=== PATIENT | female | born 1930 | race Asian ===

== ENCOUNTER 2020-05-08 10:38 | Inpatient (IN) | payer OTHER ==
[~2020-05-08] VITALS: Ht 154.9 cm; Wt 73.0 kg
[2020-05-08] VITALS (7 sets, daily range): BP systolic 70–111; BP diastolic 34–90
--- NOTE | 2020-05-08 10:44 | Emergency Room Report ---
History of Present Illness General Chief Complaint: Abnormal labs, hypotension Source: Medical Record, EMS Present Illness HPI Disclaimer: Please note that this report is being documented using DRAGON technology. This can lead to erroneous entry secondary to incorrect interpretation by the dictating instrument. HPI: 89-year-old female with a history of GI bleed, intracranial bleed, trach and vent dependent presents for evaluation of hypotension and abnormal labs. The patient was being transported by private ambulance to hospital for anemia with reported hemoglobin of 6.2, and for acute kidney injury with elevated BUN/ creatinine on outpatient labs. En route she became hypotensive with pressures in the 80s. Ambulance rerouted to our facility as we were the closest. She arrives still mildly hypotensive no acute distress. 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 No respiratory distress. Afebrile. Tracheostomy was put in 5 days ago. She was COVID negative at that time. PMH: Anemia, intracranial hemorrhage, trach and vent dependent, GI bleed, hypertension, GERD PSH: Trach., G-tube Allergies: Reviewed Social Hx: Cannot obtain Allergies: Coded Allergies: No Known Allergies (Unverified , 05/08/20) Review of Systems All Other Systems: limited - Cannot obtain from patient Physical Exam General: Obtunded, no spontaneous movement. No obvious distress HEENT: NC/AT. Neck: Tracheostomy appears appropriately placed, no surrounding bleeding, erythema, purulent drainage. Cardiovascular: RRR. S1 and S2 normal. No murmur appreciated Resp: Normal work of breathing. No cough, wheezing or crackles appreciated Abdomen: Abdomen is soft, nondistended. Gastrostomy tube appears in appropriate position without surrounding signs of infection or trauma. Skin: Intact. No abrasions, laceration or rash over the exposed skin MSK: Normal tone and bulk. No spontaneous movement. Neuro: Obtunded, GCS 3. Procedures Critical Care Time Critical Care Time Total critical care time: Approximately 45 minutes Due to a high probability of clinically significant, life threatening deterioration, the patient required the highest level of preparedness to intervene emergently and I personally spent this critical care time directly and personally managing the patient. This critical care time included obtaining a history, examining the patient, pulse oximetry, ordering and reviewing studies , ordering treatments, evaluating response to treatment and updating management plan as needed, frequent reassessment and discussion with other providers as well as arranging for ultimate disposition. This critical to care time was performed to assess and manage the high probability of life-threatening deterioration that could result in multiorgan failure. This critical care time is separate from the separately billable procedures and treating other patients. Central Line Central Line : Consent: Emergent Central Line Lumen: triple Maximal Sterile Barrier Tech: yes cap, yes mask, yes sterile gown, yes sterile gloves, yes large sterile sheet, yes hand hygiene, yes chlorhexidine prep No Max Barrier Tech Because: emergency insertion Central Line Postion: femoral (R) US Guided Line?: Yes Vessel visualized with U/S: Right Femoral Vein Ultrasound Findings: Collapsible Vessel, Vessel Patent, Visualize vessel puncture Complications: none Central Line Post Position: sutured, good blood return Attempts: One Patient Tolerated: Well Complications: None Medical Decision Making Diagnostic Impression: Primary Impression: Hypotension Additional Impressions: Anemia NSTEMI (non-ST elevated myocardial infarction) HIRO (acute kidney injury) Hyponatremia UTI (urinary tract infection) ER Course Is an 89-year-old trach and vent dependent female with a history of intracranial and GI bleed presenting for anemia, hypotension and HIRO. Tested negative for COVID-19 on 05/04. No respiratory issues at this time. Patient hypotensive on arrival though otherwise her vitals are within normal limits. No tachycardia, afebrile. Unable to establish peripheral access. A central line was placed in the right femoral under ultrasound guidance by me with no complications. Receiving aggressive IV fluid resuscitation and will add vasopressor agents as indicated. 1230: Labs confirm HIRO. Troponin returned elevated. Aspirin withheld over possibility of bleed given her history and current anemia. Patient arrived with Quiñonez catheter in place and urinalysis concerning for infection. Chest x- ray also shows bilateral hazy opacities either infectious versus fluid overload. BNP elevated and therefore believe more signs of pulmonary congestion as opposed to infiltrate. Patient is saturating 100% without signs of respiratory distress or fever at this time. Blood cultures were sent and patient was given Zosyn for broad coverage. Pressures improved. Map 68. She will be admitted to SDU to her PMD, Dr. Kauffman. Sepsis reevaluation: I, Dr. Robert Lemus, reevaluated the patient MAP: 68 Heart rate: 124 Respiratory rate: 20 Initial Lactate: 3.4 Repeat Lactate: Pending Pressors: None Laboratory Tests Test 05/08/20 10:50 05/08/20 12:00 Urine Color Yellow Urine Appearance Slightly cloudy Urine pH 5 (4.5-8.0) Urine Specific [place] 1.010 (1.005-1.035) Urine Protein Negative (NEGATIVE) Urine Glucose (UA) Negative (NEGATIVE) Urine Ketones Negative (NEGATIVE) Urine Blood 3+ (NEGATIVE) H Urine Nitrite Negative (NEGATIVE) Urine Bilirubin Negative (NEGATIVE) Urine Urobilinogen Normal MG/DL (0.0-1.0) Urine Leukocyte Esterase 2+ (NEGATIVE) H Urine RBC 15-20 /HPF (0 - 2) H Urine WBC 20-30 /HPF (0 - 2) H Urine Squamous Epithelial Cells Moderate /LPF (NONE/OCC) H Urine Bacteria Moderate /HPF (NONE) H Urine Yeast Many /HPF (NONE) H White Blood Count 9.5 K/UL (4.8-10.8) Red Blood Count 2.01 M/UL (4.20-5.40) L Hemoglobin 6.0 G/DL (12.0-16.0) *L Hematocrit 18.3 % (37.0-47.0) L Mean Corpuscular Volume 91 FL (80-99) Mean Corpuscular Hemoglobin 29.8 PG (27.0-31.0) Mean Corpuscular Hemoglobin Concent 32.7 G/DL (32.0-36.0) Red Cell Distribution Width 12.2 % (11.6-14.8) Platelet Count 153 K/UL (150-450) Mean Platelet Volume 9.3 FL (6.5-10.1) Neutrophils (%) (Auto) % (45.0-75.0) Lymphocytes (%) (Auto) % (20.0-45.0) Monocytes (%) (Auto) % (1.0-10.0) Eosinophils (%) (Auto) % (0.0-3.0) Basophils (%) (Auto) % (0.0-2.0) Neutrophils % (Manual) Pending Lymphocytes % (Manual) Pending Platelet Estimate Pending Platelet Morphology Pending Prothrombin Time Pending Prothrombin Time INR Pending Activated Partial Thromboplast Time Pending Sodium Level 125 MMOL/L (136-145) L Potassium Level 3.7 MMOL/L (3.5-5.1) Chloride Level 85 MMOL/L (98-107) L Carbon Dioxide Level 34 MMOL/L (21-32) H Anion Gap 6 mmol/L (5-15) Blood Urea Nitrogen 112 mg/dL (7-18) H Creatinine 1.8 MG/DL (0.55-1.30) H Estimated Glomerular Filtration Rate 26.6 mL/min (>60) Glucose Level 127 MG/DL (74-106) H Lactic Acid Level Pending Calcium Level 7.3 MG/DL (8.5-10.1) L Total Bilirubin 0.5 MG/DL (0.2-1.0) Aspartate Amino Transferase (AST) 62 U/L (15-37) H Alanine Aminotransferase (ALT) 46 U/L (12-78) Alkaline Phosphatase 87 U/L (46-116) Troponin I 3.205 ng/mL (0.000-0.056) Pro-B-Type Natriuretic Peptide 23327 pg/mL (0-125) H Total Protein 4.8 G/DL (6.4-8.2) L Albumin 1.8 G/DL (3.4-5.0) L Globulin 3.0 g/dL Albumin/Globulin Ratio 0.6 (1.0-2.7) L Microbiology Date/Time Source Procedure Growth Status 05/08/20 10:30 Nasopharynx SARS-CoV-2 RdRp Gene Assay - Final Complete EKG Diagnostic Results EKG Time: 10:57 Rate: normal Other Impression Irregularly irregular rhythm. Palpable second-degree block versus atrial fibrillation. Difficult to discern. No acute ST segment changes. Rhythm Strip Diag. Results Rhythm Strip Time: 10:57 EP Interpretation: yes Rate: 60s Rhythm: other - Atrial fibrillation Chest X-Ray Diagnostic Results Chest X-Ray Diagnostic Results : Chest X-Ray Ordered: Yes # of Views/Limited/Complete: 1 View Indication: Other - Tracheostomy EP Interpretation: Yes Interpretation: other - Bilateral vascular congestion versus infiltrate Impression: Other - Infiltrate versus vascular congestion Electronically Signed by: Electronically signed by Dr. Robert Lemus Disposition: ADMITTED INPATIENT Condition: Serious Robert Lemus MD May 08, 2020 10:44
--- NOTE | 2020-05-08 10:45 | NUR ---
Received pt on SIMV rate of 10 VT 400 Fio2 35% PEEP +5 PS 12. Placed pt on AC 10 VT 400 35% +[address] Lemus. SpO2 100%. Pt has cuffed shiley XLT 8. Suction with scant to small thin clear/white secretion with no complications. Trach is patent and secure. Cuff pressure checked via [employer]. Alarms are on and audible. Back up trach at bedside. Will continue to monitor.
[2020-05-08] MEDS ORDERED: HYDROGEL3000 GM MC (10:49)
[2020-05-08] MEDS ORDERED: VITAMIN D32400 UNIT/ MC (10:49)
[2020-05-08] MEDS ORDERED: NOVOLIN R100 UNIT/1 SUBQ (10:49)
[2020-05-08] MEDS ORDERED: ACETAMINOPHEN325 M1 GT (10:49)
[2020-05-08] MEDS ORDERED: DITROPAN XL5 MG GT (10:49)
[2020-05-08] MEDS ORDERED: COLACE100 MG GT (10:49)
[2020-05-08] MEDS ORDERED: CARDIZEM60 MG ORAL (10:49)
[2020-05-08] MEDS ORDERED: MILK OF MA400 MG/51 GT (10:49)
[2020-05-08] MEDS ORDERED: FUROSEMIDE20 M1 GT (10:49)
[2020-05-08] MEDS ORDERED: PLAVIX75 MG GT (10:49)
[2020-05-08] MEDS ORDERED: FEOSOL45 MG GT (10:49)
[2020-05-08] MEDS ORDERED: PROTONIX40 MG GT (10:49)
[2020-05-08] MEDS ORDERED: ATORVASTATIN CA10 MG GT (10:49)
[2020-05-08] MEDS ORDERED: SILVER SULFADIA50 GM TP (10:49)
[2020-05-08] MEDS ORDERED: HIBICLENS118 ML TP (10:49)
[2020-05-08] MEDS ORDERED: DIOVAN80 MG GT (10:49)
[2020-05-08] MEDS ORDERED: REGLAN5 MG ORAL (10:49)
[2020-05-08] MEDS ORDERED: ALBUTEROL SULF8.5 G1 INH (10:49)
--- NOTE | 2020-05-08 10:49 | NUR ---
ED Nurse Note: Pt from [facility] and was brought in by ambulance due to hypotension 78/48, low hgb of 6.2 and low hct of 18.5. Pt is a trach vent dependent. Noted severe edema on bilateral arms. Pt on G tube and with indwelling portillo cath upon arrival. Opens eyes spontaneously but non verbal, unable to follow commands. No respiratory distress.
--- NOTE | 2020-05-08 11:00 | NUR ---
ED Nurse Note: Multiple RNs tried to insert IV access. Dr Lemus and ER charge nurse were notified.
--- NOTE | 2020-05-08 11:15 | NUR ---
ED Nurse Note: Covid19 and urine specimen sent.
--- NOTE | 2020-05-08 11:30 | NUR ---
HAND-OFF: Report given to Ambrose Bucio RN.
--- NOTE | 2020-05-08 11:40 | Diagnostic Imaging Report ---
EXAM: XR Chest, 1 View CLINICAL HISTORY: SOB TECHNIQUE: Frontal view of the chest. COMPARISON: None FINDINGS: Hardware: Tracheostomy tube terminates in the region of the mid thoracic trachea. Lungs/pleura: Patchy opacities throughout the lungs. Possible small pleural effusions. Heart/mediastinum: Mild enlargement of the cardiac silhouette. Atherosclerotic calcifications of the aorta. Mitral annular calcifications. Soft tissues: Unremarkable. Bones: No acute fracture. Degenerative changes of the shoulders and spine. Upper abdomen: Normal. IMPRESSION: Patchy opacities throughout the lungs which may represent pulmonary edema versus infectious/inflammatory process. Possible small pleural effusions.
--- NOTE | 2020-05-08 12:00 | NUR ---
ED Nurse Note: RIGHT FEMORAL TLC ETABLISHED BY IZAIAH. BLOOD, LACTIC ACID, BLOOD CULTURE COLLLECTED; SENT DOWN TO LAB.
[2020-05-08 12:16] LABS: APPEARANCE,URINE SLIGHTLY CLOUDY; COLOR,URINE YELLOW
[2020-05-08 12:17] LABS: BILIRUBIN, URINE NEGATIVE (NEGATIVE); GLUCOSE, URINE (UA) NEGATIVE (NEGATIVE); KETONES,URINE NEGATIVE (NEGATIVE); LEUKOCYTE ESTERASE ,URINE 2+ (NEGATIVE); NITRITE,URINE NEGATIVE (NEGATIVE); PH,URINE 5 (4.5-8.0); PROTEIN,URINE NEGATIVE (NEGATIVE); UROBILINOGEN,URINE NORMAL MG/DL (0.0-1.0)
[2020-05-08 12:25] LABS: HEMATOCRIT 18.3 % (37.0-47.0); MEAN CORPUSCULAR VOLUME 91 FL (80-99); PLATELET COUNT 153 K/UL (150-450); RED BLOOD COUNT 2.01 M/UL (4.20-5.40); RED CELL DISTRIBUTION WIDTH 12.2 % (11.6-14.8); WHITE BLOOD COUNT 9.5 K/UL (4.8-10.8)
[2020-05-08 12:37] LABS: ANION GAP 6 mmol/L (5-15); BLOOD UREA NITROGEN 112 mg/dL (7-18); CALCIUM 7.3 MG/DL (8.5-10.1); CARBON DIOXIDE 34 MMOL/L (21-32); CHLORIDE 85 MMOL/L (98-107); CREATININE 1.8 MG/DL (0.55-1.30); POTASSIUM 3.7 MMOL/L (3.5-5.1); SODIUM 125 MMOL/L (136-145)
[2020-05-08] MEDS ORDERED: Piperacillin/Tazobactam 4.5 GM in NS 110 ML IVPB ONE (12:45)
[2020-05-08 12:48] LABS: ALANINE AMINOTRANSFERASE 46 U/L (12-78); ALBUMIN 1.8 G/DL (3.4-5.0); ALBUMIN/GLOBULIN RATIO 0.6 (1.0-2.7); ALKALINE PHOSPHATASE 87 U/L (46-116); ASPARTATE AMINO TRANSFERASE 62 U/L (15-37); BILIRUBIN,TOTAL 0.5 MG/DL (0.2-1.0)
[2020-05-08 13:07] LABS: INR 0.9 (0.9-1.1)
--- NOTE | 2020-05-08 13:30 | NUR ---
ED Nurse Note: blood transfusion initiated. verified with 2 rn vitals stable to baseline; documented on blood bank form
--- NOTE | 2020-05-08 13:45 | NUR ---
ED Nurse Note: 15 min monitoring completed; blood continues to infuse. patient asymptomatic; vitals stable to baseline.
--- NOTE | 2020-05-08 13:46 | NUR ---
NURSE NOTES: Received not from Ambrose Bucio RN.
--- NOTE | 2020-05-08 13:54 | NUR ---
TRANSFER TO FLOOR: Patient transferred to sdu [id number] as ordered, per wilver lo. Report given to alvina lau. endorsed blood transfusion. patient stable for transfer. transported to unit via [place] with lacy lau and rt
--- NOTE | 2020-05-08 15:54 | NUR ---
NURSE NOTES: Second unit of blood started at 1551. Patient continues to have low BP 70/34 pulse of 79 on traffic monitor specialist.
--- NOTE | 2020-05-08 16:59 | Cardiac Electrophysiology PN ---
Subjective Subjective [id number] Objective Last 24 Hour Vital Signs Date Time Temp Pulse Resp B/P (MAP) Pulse Ox O2 Delivery O2 Flow Rate FiO2 05/08/20 15:57 105 16 97/48 (64) 100 05/08/20 15:51 97.7 79 15 70/34 (46) 100 05/08/20 14:56 128 16 100 Mechanical Ventilator 35 05/08/20 14:56 128 16 35 05/08/20 14:33 Mechanical Ventilator 05/08/20 14:00 97.9 103 18 111/90 (97) 100 05/08/20 13:56 97.5 123 17 90/54 100 Mechanical Ventilator 35 05/08/20 13:51 97.5 123 17 90/54 100 Mechanical Ventilator 35 05/08/20 13:30 97.9 120 17 85/58 100 Mechanical Ventilator 35 05/08/20 13:25 127 16 35 05/08/20 11:10 68 24 35 05/08/20 10:49 96.4 87 19 82/60 100 Mechanical Ventilator 05/08/20 10:45 35 05/08/20 10:39 96.4 59 22 82/60 (67) 99 Trach Collar Laboratory Tests Test 05/08/20 10:50 05/08/20 12:00 05/08/20 13:30 Urine Color Yellow Urine Appearance Slightly cloudy Urine pH 5 (4.5-8.0) Urine Specific [place] 1.010 (1.005-1.035) Urine Protein Negative (NEGATIVE) Urine Glucose (UA) Negative (NEGATIVE) Urine Ketones Negative (NEGATIVE) Urine Blood 3+ (NEGATIVE) H Urine Nitrite Negative (NEGATIVE) Urine Bilirubin Negative (NEGATIVE) Urine Urobilinogen Normal MG/DL (0.0-1.0) Urine Leukocyte Esterase 2+ (NEGATIVE) H Urine RBC 15-20 /HPF (0 - 2) H Urine WBC 20-30 /HPF (0 - 2) H Urine Squamous Epithelial Cells Moderate /LPF (NONE/OCC) H Urine Bacteria Moderate /HPF (NONE) H Urine Yeast Many /HPF (NONE) H White Blood Count 9.5 K/UL (4.8-10.8) Red Blood Count 2.01 M/UL (4.20-5.40) L Hemoglobin 6.0 G/DL (12.0-16.0) *L Hematocrit 18.3 % (37.0-47.0) L Mean Corpuscular Volume 91 FL (80-99) Mean Corpuscular Hemoglobin 29.8 PG (27.0-31.0) Mean Corpuscular Hemoglobin Concent 32.7 G/DL (32.0-36.0) Red Cell Distribution Width 12.2 % (11.6-14.8) Platelet Count 153 K/UL (150-450) Mean Platelet Volume 9.3 FL (6.5-10.1) Neutrophils (%) (Auto) % (45.0-75.0) Lymphocytes (%) (Auto) % (20.0-45.0) Monocytes (%) (Auto) % (1.0-10.0) Eosinophils (%) (Auto) % (0.0-3.0) Basophils (%) (Auto) % (0.0-2.0) Differential Total Cells Counted 100 Neutrophils % (Manual) 80 % (45-75) H Lymphocytes % (Manual) 11 % (20-45) L Monocytes % (Manual) 6 % (1-10) Eosinophils % (Manual) 1 % (0-3) Basophils % (Manual) 1 % (0-2) Band Neutrophils 1 % (0-8) Platelet Estimate Adequate Platelet Morphology Normal Hypochromasia 4+ Anisocytosis 1+ Spherocytes 2+ Prothrombin Time 10.2 SEC (9.30-11.50) Prothromb Time International Ratio 0.9 (0.9-1.1) Activated Partial Thromboplast Time 25 SEC (23-33) Sodium Level 125 MMOL/L (136-145) L Potassium Level 3.7 MMOL/L (3.5-5.1) Chloride Level 85 MMOL/L (98-107) L Carbon Dioxide Level 34 MMOL/L (21-32) H Anion Gap 6 mmol/L (5-15) Blood Urea Nitrogen 112 mg/dL (7-18) H Creatinine 1.8 MG/DL (0.55-1.30) H Estimat Glomerular Filtration Rate 26.6 mL/min (>60) Glucose Level 127 MG/DL (74-106) H Lactic Acid Level 3.20 mmol/L (0.4-2.0) H 2.60 mmol/L (0.66-2.22) H Calcium Level 7.3 MG/DL (8.5-10.1) L Total Bilirubin 0.5 MG/DL (0.2-1.0) Aspartate Amino Transf (AST/SGOT) 62 U/L (15-37) H Alanine Aminotransferase (ALT/SGPT) 46 U/L (12-78) Alkaline Phosphatase 87 U/L (46-116) Troponin I 3.205 ng/mL (0.000-0.056) Pro-B-Type Natriuretic Peptide 61590 pg/mL (0-125) H Total Protein 4.8 G/DL (6.4-8.2) L Albumin 1.8 G/DL (3.4-5.0) L Globulin 3.0 g/dL Albumin/Globulin Ratio 0.6 (1.0-2.7) L Microbiology Date/Time Source Procedure Growth Status 05/08/20 10:30 Nasopharynx SARS-CoV-2 RdRp Gene Assay - Final Complete 05/08/20 12:00 Rectum Received Renard Erickson MD May 08, 2020 16:59
[2020-05-08] MEDS: Sucralfate 1gm tab GT SCH ×2 (17:23→21:40)
[2020-05-08] MEDS: D5NS 1,000 ML IV SCH (17:24)
--- NOTE | 2020-05-08 19:25 | NUR ---
NURSE HAND-OFF REPORT: Important Events on Shift:Low BP, 2U blood given Patient Status: Full Code Diet: Pending Pending Orders: Diet Pending Results/Labs: Troponin Pending MD notification:N/A Latest Vital Signs: Temperature 97.7 , Pulse 82 , B/P 97 /48 , Respiratory Rate 15 , O2 SAT 100 , Mechanical Ventilator, O2 Flow Rate . Vital Sign Comment: Stable EKG Rhythm: Sinus Tachycardia Rhythm change?: MD Notified?: - MD Response: Latest [place] Fall Score: 70 Fall Risk: High Risk Safety Measures: Call light Within Reach, Bed Alarm Zone 3, Side Rails Side Rails x3, Bed position Low and Locked. Fall Precautions: Yellow Socks Door Sign Patient Fall Education Report given to ROSALINO Salomon.
--- NOTE | 2020-05-08 19:26 | NUR ---
NURSE NOTES: Received report from ROSALINO Leigh. Upon assessment pt is obtunded and unresponsive to verbal stimuli. Vent settings observed at S8, A/C 10, Vt 400, FiO2 35% and P5 saturating at 98%. Right femoral TLC noted to be patent and intact running D5W 1/2 NS @ 100cc. 20 [place] portillo draining well to gravity. Vital WNL and pt afebrile. G-tube site intact with 0 residual. No signs of bleeding noted. Bed in lowest and locked position. Bed alarm on and call light within reach. Will continue monitoring.
--- NOTE | 2020-05-08 19:45 | NUR ---
NURSE NOTES: Made aware of no diet order. Per Jazmín Allen pt on Glucerna 1.2 at 35 cc via g-tube. Will f/u with MD in AM.
--- NOTE | 2020-05-08 20:00 | NUR ---
NURSE NOTES: Lab called with Troponin level of 2.111.
[2020-05-08] MEDS: Pantoprazole Inj IVP SCH (21:39)
[2020-05-09] VITALS: BP 103/76
--- NOTE | 2020-05-09 02:30 | NUR ---
NURSE NOTES: Bright red blood noticed upon trach suctioning. EKG recorded displaying Afib with RVR. Dr. Erickson notified.
--- NOTE | 2020-05-09 02:30 | Consultation ---
DATE OF CONSULTATION: 05/08/2020 CARDIOLOGY CONSULTATION CONSULTING PHYSICIAN: Renard Erickson MD REFERRING PHYSICIAN: Willy Mustafa MD ADDITIONAL REFERRING PHYSICIAN: Anita Kauffman MD REASON FOR CONSULTATION: Hypotension and non-ST elevation myocardial infarction with troponin of more than 3. 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 En route, the patient became hypotensive with blood pressure dropping to 70s and 80s. The patient facility which was the closest. The patient's tracheostomy was put in just 5 days ago and was COVID negative at that time. The patient also noted to have elevated troponin of more than 3 and cardiac electrophysiology consultation was obtained for further evaluation and management. REVIEW OF SYSTEMS: Cannot be obtained. PAST MEDICAL HISTORY: As mentioned above. FAMILY HISTORY: Noncontributory. SOCIAL HISTORY: Cannot be obtained. ALLERGIES: Reviewed. PHYSICAL EXAMINATION: VITAL SIGNS: Show blood pressure 70/30 and currently 97/48, pulse 105, respirations 18, temperature 97.7. HEAD AND NECK: Status post tracheostomy, which is fresh. LUNGS: Coarse rhonchi. CARDIOVASCULAR: Regular S1 and S2 with no gallop. ABDOMEN: Status post G-tube. EXTREMITIES: A 3+ pitting edema. LABORATORY AND DIAGNOSTIC DATA: White count of , hemoglobin of 6, hematocrit of 18, and platelet count 153. Sodium 125, potassium 3.7, BUN of 112, creatinine of 1.8, and glucose of 127. Troponin 3.25. BNP is 19,000. ASSESSMENT AND PLAN: 1. Non-ST elevation myocardial infarction with troponin of 3.2. This may be due to patient's demand ischemia in view hemoglobin of only 6 as well as renal failure. Her EKG shows sinus rhythm with nonspecific ST-T wave abnormality and no ST elevation. In view of low blood pressure, unable to put the patient on beta-yulissa in view of history of GI bleed and hemoglobin of 6 aspirin. 2. Volume overload. BNP of 19,000 as well as 4+ edema. However, the patient is likely intravascularly depleted as her BUN is 112 and creatinine 1.8. Further evaluation by Dr. Minor. 3. Severe hyponatremia, sodium 125. 4. Septic shock with lactic acidosis. The patient is on IV antibiotic per ID. 5. 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 6. Dysphagia, status post PEG placement. 7. Acute renal failure. The case was discussed with nurse at the bedside. Echocardiogram is also pending at the time of this dictation. Thank you very much for allowing me to participate in the care of this patient. Please do not hesitate to contact me for any questions regarding my evaluation. Sincerely, Renard Erickson M.D. DR: Fred JOB#: [id number] CC:
[2020-05-09] MEDS: D5NS 1,000 ML IV SCH ×3 (02:47→20:38)
[2020-05-09 04:00] VITALS: BP 96/61
[2020-05-09 04:45] LABS: HEMATOCRIT 25.5 % (37.0-47.0); HEMOGLOBIN 8.6 G/DL (12.0-16.0); MEAN CORPUSCULAR VOLUME 87 FL (80-99); PLATELET COUNT 141 K/UL (150-450); RED BLOOD COUNT 2.92 M/UL (4.20-5.40); RED CELL DISTRIBUTION WIDTH 12.5 % (11.6-14.8)
[2020-05-09 04:58] LABS: ALANINE AMINOTRANSFERASE 45 U/L (12-78); ALBUMIN 1.7 G/DL (3.4-5.0); ALBUMIN/GLOBULIN RATIO 0.6 (1.0-2.7); ALKALINE PHOSPHATASE 92 U/L (46-116); ANION GAP 7 mmol/L (5-15); ASPARTATE AMINO TRANSFERASE 57 U/L (15-37); BILIRUBIN,TOTAL 0.6 MG/DL (0.2-1.0); BLOOD UREA NITROGEN 103 mg/dL (7-18); CALCIUM 6.8 MG/DL (8.5-10.1); CARBON DIOXIDE 31 MMOL/L (21-32); CHLORIDE 92 MMOL/L (98-107); CREATININE 1.5 MG/DL (0.55-1.30); POTASSIUM 3.1 MMOL/L (3.5-5.1); SODIUM 130 MMOL/L (136-145)
[2020-05-09 06:03] LABS: PHOSPHORUS 4.5 MG/DL (2.5-4.9)
--- NOTE | 2020-05-09 06:55 | NUR ---
NURSE NOTES: Left message for Dr. Panchal in regard to diet order and possible insulin with sliding scale orders. Dr. Mustafa at bedside. Pt in stable condition.
--- NOTE | 2020-05-09 06:58 | History & Physical ---
History of Present Illness General Reason for Hospitalization: Abnormal Labs Present Illness Allergies: Coded Allergies: No Known Allergies (Unverified , 05/08/20) COVID-19 Screening Contact w/high risk pt: No Experienced COVID-19 symptoms?: No Medication History Scheduled Albuterol Sulfate* (Albuterol Sulfate Hfa*), 2 PUFF INH Q3H, (Reported) Atorvastatin Calcium* (Lipitor*), 10 MG ORAL BEDTIME, (Reported) Clopidogrel Bisulfate* (Plavix*), 75 MG ORAL DAILY, (Reported) Diltiazem Hcl* (Cardizem*), 90 MG ORAL EVERY 6 HOURS, (Reported) Docusate Sodium* (Colace*), 100 MG ORAL DAILY, (Reported) Furosemide* (Lasix*), 20 MG ORAL DAILY, (Reported) Insulin Regular, Human* (Novolin R*), 0 SUBQ .SLIDING SCALE, (Reported) Magnesium Hydroxide* (Milk Of Magnesia*), 30 ML ORAL DAILY, (Reported) Metoclopramide Hcl* (Reglan*), 5 MG ORAL EVERY 6 HOURS, (Reported) Oxybutynin Chloride (Ditropan Xl), 5 MG ORAL DAILY, (Reported) Pantoprazole* (Protonix*), 40 MG ORAL DAILY, (Reported) Valsartan (Diovan), 80 MG ORAL DAILY, (Reported) Scheduled PRN Acetaminophen* (Acetaminophen 325MG Tablet*), 325 MG ORAL Q4H PRN for For Pain, (Reported) Miscellaneous Medications Chlorhexidine Gluconate* (Hibiclens*), 118 ML TP, (Reported) Cholecalciferol (Vitamin D3) (Vitamin D3), 5,000 UNIT MC, (Reported) Gel Base No.41 (Hydrogel), 3,000 GM MC, (Reported) Iron,Carbonyl (Feosol), 325 MG PO, (Reported) Silver Sulfadiazine (Silver Sulfadiazine), 50 GM TP, (Reported) Patient History Healthcare decision maker Resuscitation status Advanced Directive on File Review of Systems Review of Symptoms General ROS: no weight loss or fever Psychological ROS: no depression or mood changes, no memory loss Ophthalmic ROS: no visual changes or eye irritation ENT ROS: no nasal congestion, hearing loss, dizziness Allergy and Immunology ROS: no allergic symptoms or urticaria Hematological and Lymphatic ROS: no swollen glands, unusual bleeding or bruising Endocrine ROS: no polyuria, polydipsia, weight changes, temperature intolerance Respiratory ROS: no cough, shortness of breath, or wheezing Cardiovascular ROS: no chest pain or dyspnea on exertion Gastrointestinal ROS: denies abdominal pain, bright red blood in stool. Musculoskeletal ROS: no myalgias or arthralgias Neurological ROS: no TIA or stroke symptoms Dermatological ROS: no new or changing skin lesions, rashes or pruritis Physical Exam Physical Exam General appearance: alert, cooperative, no distress, appears stated age Head: Normocephalic, without obvious abnormality, atraumatic Eyes: conjunctivae/corneas clear. PERRL, EOM's intact. Fundi benign Throat: Lips, mucosa, and tongue normal. Teeth and gums normal Neck: supple, symmetrical, trachea midline, no adenopathy, thyroid: not enlarged, symmetric, no tenderness/mass/nodules, no carotid bruit and no JVD Lungs: clear to auscultation bilaterally Heart: regular rate and rhythm, S1, S2 normal, no murmur, click, rub or gallop Abdomen: soft, non-tender. Bowel sounds normal. No masses, no organomegaly Extremities: extremities normal, atraumatic, no cyanosis or edema Pulses: 2+ and symmetric Skin: Skin color, texture, turgor normal. No rashes or lesions Neurologic: Grossly normal Last 24 Hour Vital Signs Date Time Temp Pulse Resp B/P (MAP) Pulse Ox O2 Delivery O2 Flow Rate FiO2 05/09/20 05:22 100 16 35 05/09/20 04:00 35 05/09/20 04:00 Mechanical Ventilator 05/09/20 04:00 98.8 90 18 96/61 (73) 100 05/09/20 03:42 107 05/09/20 03:30 89 14 35 05/09/20 01:14 113 17 35 05/09/20 00:00 Mechanical Ventilator 05/09/20 00:00 98.2 108 18 103/76 (85) 100 05/08/20 23:33 133 05/08/20 23:25 110 16 35 05/08/20 21:07 102 12 35 05/08/20 20:00 99.7 79 14 91/51 (64) 100 05/08/20 20:00 Mechanical Ventilator 05/08/20 20:00 35 05/08/20 19:22 82 05/08/20 19:20 89 17 35 05/08/20 17:21 82 15 35 05/08/20 16:00 92 05/08/20 16:00 35 05/08/20 15:57 105 16 97/48 (64) 100 05/08/20 15:51 97.7 79 15 70/34 (46) 100 05/08/20 14:56 128 16 100 Mechanical Ventilator 35 05/08/20 14:56 128 16 35 05/08/20 14:33 Mechanical Ventilator 05/08/20 14:00 97.9 103 18 111/90 (97) 100 05/08/20 13:56 97.5 123 17 90/54 100 Mechanical Ventilator 35 05/08/20 13:51 97.5 123 17 90/54 100 Mechanical Ventilator 35 05/08/20 13:30 97.9 120 17 85/58 100 Mechanical Ventilator 35 05/08/20 13:25 127 16 35 05/08/20 11:10 68 24 35 05/08/20 10:49 96.4 87 19 82/60 100 Mechanical Ventilator 05/08/20 10:45 35 05/08/20 10:39 96.4 59 22 82/60 (67) 99 Trach Collar Intake and Output 05/08/20 05/09/20 19:00 07:00 Intake Total 560 ml 641.6 ml Output Total 101 ml 600 ml Balance 459 ml 41.6 ml Intake Free Water 20 ml IV Total 60 ml 621.6 ml Blood Product 500 ml Output Urine Total 101 ml 600 ml # Voids 100 # Bowel Movements 2 Laboratory Tests Test 05/08/20 10:50 05/08/20 12:00 05/08/20 13:30 05/08/20 19:45 Urine Color Yellow Urine Appearance Slightly cloudy Urine pH 5 (4.5-8.0) Urine Specific [place] 1.010 (1.005-1.035) Urine Protein Negative (NEGATIVE) Urine Glucose (UA) Negative (NEGATIVE) Urine Ketones Negative (NEGATIVE) Urine Blood 3+ (NEGATIVE) H Urine Nitrite Negative (NEGATIVE) Urine Bilirubin Negative (NEGATIVE) Urine Urobilinogen Normal MG/DL (0.0-1.0) Urine Leukocyte Esterase 2+ (NEGATIVE) H Urine RBC 15-20 /HPF (0 - 2) H Urine WBC 20-30 /HPF (0 - 2) H Urine Squamous Epithelial Cells Moderate /LPF (NONE/OCC) H Urine Bacteria Moderate /HPF (NONE) H Urine Yeast Many /HPF (NONE) H White Blood Count 9.5 K/UL (4.8-10.8) Red Blood Count 2.01 M/UL (4.20-5.40) L Hemoglobin 6.0 G/DL (12.0-16.0) *L Hematocrit 18.3 % (37.0-47.0) L Mean Corpuscular Volume 91 FL (80-99) Mean Corpuscular Hemoglobin 29.8 PG (27.0-31.0) Mean Corpuscular Hemoglobin Concent 32.7 G/DL (32.0-36.0) Red Cell Distribution Width 12.2 % (11.6-14.8) Platelet Count 153 K/UL (150-450) Mean Platelet Volume 9.3 FL (6.5-10.1) Neutrophils (%) (Auto) % (45.0-75.0) Lymphocytes (%) (Auto) % (20.0-45.0) Monocytes (%) (Auto) % (1.0-10.0) Eosinophils (%) (Auto) % (0.0-3.0) Basophils (%) (Auto) % (0.0-2.0) Differential Total Cells Counted 100 Neutrophils % (Manual) 80 % (45-75) H Lymphocytes % (Manual) 11 % (20-45) L Monocytes % (Manual) 6 % (1-10) Eosinophils % (Manual) 1 % (0-3) Basophils % (Manual) 1 % (0-2) Band Neutrophils 1 % (0-8) Platelet Estimate Adequate Platelet Morphology Normal Hypochromasia 4+ Anisocytosis 1+ Spherocytes 2+ Prothrombin Time 10.2 SEC (9.30-11.50) Prothromb Time International Ratio 0.9 (0.9-1.1) Activated Partial Thromboplast Time 25 SEC (23-33) Sodium Level 125 MMOL/L (136-145) L Potassium Level 3.7 MMOL/L (3.5-5.1) Chloride Level 85 MMOL/L (98-107) L Carbon Dioxide Level 34 MMOL/L (21-32) H Anion Gap 6 mmol/L (5-15) Blood Urea Nitrogen 112 mg/dL (7-18) H Creatinine 1.8 MG/DL (0.55-1.30) H Estimat Glomerular Filtration Rate 26.6 mL/min (>60) Glucose Level 127 MG/DL (74-106) H Lactic Acid Level 3.20 mmol/L (0.4-2.0) H 2.60 mmol/L (0.66-2.22) H Calcium Level 7.3 MG/DL (8.5-10.1) L Total Bilirubin 0.5 MG/DL (0.2-1.0) Aspartate Amino Transf (AST/SGOT) 62 U/L (15-37) H Alanine Aminotransferase (ALT/SGPT) 46 U/L (12-78) Alkaline Phosphatase 87 U/L (46-116) Troponin I 3.205 ng/mL (0.000-0.056) 2.111 ng/mL (0.000-0.056) Pro-B-Type Natriuretic Peptide 39710 pg/mL (0-125) H Total Protein 4.8 G/DL (6.4-8.2) L Albumin 1.8 G/DL (3.4-5.0) L Globulin 3.0 g/dL Albumin/Globulin Ratio 0.6 (1.0-2.7) L Test 05/09/20 03:23 White Blood Count 8.0 K/UL (4.8-10.8) Red Blood Count 2.92 M/UL (4.20-5.40) L Hemoglobin 8.6 G/DL (12.0-16.0) #L Hematocrit 25.5 % (37.0-47.0) #L Mean Corpuscular Volume 87 FL (80-99) Mean Corpuscular Hemoglobin 29.4 PG (27.0-31.0) Mean Corpuscular Hemoglobin Concent 33.6 G/DL (32.0-36.0) Red Cell Distribution Width 12.5 % (11.6-14.8) Platelet Count 141 K/UL (150-450) L Mean Platelet Volume 8.0 FL (6.5-10.1) Neutrophils (%) (Auto) % (45.0-75.0) Lymphocytes (%) (Auto) % (20.0-45.0) Monocytes (%) (Auto) % (1.0-10.0) Eosinophils (%) (Auto) % (0.0-3.0) Basophils (%) (Auto) % (0.0-2.0) Sodium Level 130 MMOL/L (136-145) L Potassium Level 3.1 MMOL/L (3.5-5.1) L Chloride Level 92 MMOL/L (98-107) L Carbon Dioxide Level 31 MMOL/L (21-32) Anion Gap 7 mmol/L (5-15) Blood Urea Nitrogen 103 mg/dL (7-18) H Creatinine 1.5 MG/DL (0.55-1.30) H Estimat Glomerular Filtration Rate 32.9 mL/min (>60) Glucose Level 128 MG/DL (74-106) H Uric Acid 9.8 MG/DL (2.6-7.2) H Calcium Level 6.8 MG/DL (8.5-10.1) L Phosphorus Level 4.5 MG/DL (2.5-4.9) Magnesium Level 2.2 MG/DL (1.8-2.4) Total Bilirubin 0.6 MG/DL (0.2-1.0) Aspartate Amino Transf (AST/SGOT) 57 U/L (15-37) H Alanine Aminotransferase (ALT/SGPT) 45 U/L (12-78) Alkaline Phosphatase 92 U/L (46-116) Troponin I 1.928 ng/mL (0.000-0.056) C-Reactive Protein, Quantitative 9.9 mg/dL (0.00-0.90) H Pro-B-Type Natriuretic Peptide 35050 pg/mL (0-125) H Total Protein 4.7 G/DL (6.4-8.2) L Albumin 1.7 G/DL (3.4-5.0) L Globulin 3.0 g/dL Albumin/Globulin Ratio 0.6 (1.0-2.7) L Cortisol AM Sample Pending Microbiology Date/Time Source Procedure Growth Status 05/08/20 10:30 Nasopharynx SARS-CoV-2 RdRp Gene Assay - Final Complete 05/08/20 12:00 Rectum Received Height (Feet): 5 Height (Inches): 3.00 Weight (Pounds): 139 Medications Current Medications Medications (Trade) Dose Ordered Sig/Sherie Route PRN Reason Start Time Stop Time Status Last Admin Dose Admin Dextrose/Sodium Chloride 1,000 ml @ 100 mls/hr Q10H IV 05/08/20 16:00 06/07/20 15:59 05/09/20 02:47 Pantoprazole (Protonix) 40 mg DAILY IVP 05/09/20 09:00 06/08/20 08:59 UNV Pantoprazole (Protonix) 40 mg DAILY IVP 05/09/20 09:00 06/08/20 08:59 UNV Pantoprazole (Protonix) 40 mg EVERY 12 HOURS IVP 05/08/20 21:00 06/07/20 20:59 05/08/20 21:39 Sucralfate (Carafate) 1 gm FOUR TIMES A DAY GT 05/08/20 18:00 08/06/20 17:59 05/08/20 21:40 Assessment/Plan Assessment/Plan: Internal Med H&P Covering for Dr. Kauffman RFA: Anemia, Gi bleed, trop high HPI: 89-year-old female with a history of GI bleed, intracranial bleed, trach and vent dependent presents for evaluation of hypotension and abnormal labs. The patient was being transported by private ambulance to hospital for anemia with reported hemoglobin of 6.2, and for acute kidney injury with elevated BUN/ creatinine on outpatient labs. En route she became hypotensive with pressures in the 80s. Ambulance rerouted to our facility as we were the closest. She arrives still mildly hypotensive no acute distress. 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 No respiratory distress. Afebrile. Tracheostomy was put in 5 days ago. She was COVID negative at that time. Currently comfortable in bed labs noted. PMH: Anemia, intracranial hemorrhage, trach and vent dependent, GI bleed, hypertension, GERD PSH: Trach., G-tube Allergies: Reviewed Social Hx: Cannot obtain Allergies: Coded Allergies: No Known Allergies (Unverified , 05/08/20) Review of Systems All Other Systems: limited - Cannot obtain from patient PE General: Obtunded, no spontaneous movement. No obvious distress HEENT: NC/AT. Neck: Tracheostomy appears appropriately placed Cardiovascular: RRR. S1 and S2 normal. No murmur appreciated Resp: Normal work of breathing. No cough Abdomen: Abdomen is soft, nondistended. Gastrostomy tube appears in appropriate position without surrounding signs of infection or trauma. Skin: Intact. No abrasions, laceration or rash over the exposed skin MSK: Normal tone and bulk. Neuro: Obtunded Labs noted Imaging reviewed Assessment and Recs # Anemia rule out underlying gi bleed --> anemia panel has been ordered, esr, ferritin, tibc, occult --> s/p transfusion prbc 05/08 --> gi service if h/h downtrends --> triple lumen has been placed # NSTEMI (non-ST elevated myocardial infarction) with trop elevation -> on bb, off asa --> seen by Dr. Erickson --> volume management as per cards/renal --> trop downtrended # HIRO (acute kidney injury) --> cr 1.8-->1.5 # Hyponatremia/Hypokalemoa --> per renal recs # Respiratory failure s/p trach -> Dr. Medina recs # PNA on cxr --> as per id recs # Dysphagia s/p peg Appreciate showroom consultant care, will follow [facility] Hospital declaration INPATIENT level of care is warranted for this patient because patient is a 89 year old with who presents with suspicion of . I have a high level of concern because . Patient is at high risk for . Plan of care/treatment include . Patient care is expected to be greater than 2 midnights. OBSERVATION level of care is warranted for this patient. Patient is a 89 year old with who presents with . Patient will be admitted for 1 midnight, but if additional night(s) is/are necessary, patient will be converted to inpatient status for the entire hospitalization Disposition: Once the patient is stable to leave the hospital, I anticipate the patient will likely be discharged to the following environment: Estimated discharge date: I spent 70 minutes on this patient's case, and minutes was dedicated to counseling and/or care coordination. MIPS ([employer]-based Incentive Payment System) Applicable CPT: 06124, 55427 CHECK ALL THAT ARE MET: Measure #5 (CHF): All ages. Prescribe NICOLE/ARB upon discharge for patients with left ventricular systolic dysfunction. If not, the reason is clearly documented in the medical chart. Measure #8 (CHF): All ages. Prescribe a beta yulissa upon discharge for patients with left ventricular systolic dysfunction. If not, the reason is clearly documented in the medical chart. Measure #47 Advance care plan or surrogate decision maker documented in the medical record. Measure #130 The provider has documented, updated, or reviewed the patients current medication list and has documented it in the patients note. Measure #374 (All): Send report to referring provider. Measure #407(Sepsis due to MSSA bacteremia): Age 18+ Patient treated with a beta-lactam antibiotic (Nafcillin, Oxacillin or Cefazolin) as definitive therapy. MEDICAL COMPLEXITY High complexity medical decision making (need 2/3 categories) Problem - need 4 points Acute/new problem with new plan for workup (4 points, 1 max) Acute/new problem without additional workup (3 points, 1 max) Unstable chronic problem actively being managed (2 point each, 2 max) Stable chronic problem actively being managed (1 point each, 2 max) Self-limited/transient process (constipation, muscle ache, etc) (1 point each , 2 max) Data - need 4 points Reviewed labs/imaging studies (1 points, 2 max) Independent review of imaging (EKG, xrays, etc) (2 points, 2 max) Discussed case with consult/other MD/RN (2 points, 2 max) High Risk - qualify if have one of the following: Severe exacerbation of acute problem, acute mental status change, IV narcotics , monitoring drug levels (vancomycin, INR, tacrolimus etc) Willy Mustafa MD May 09, 2020 06:58
--- NOTE | 2020-05-09 07:45 | NUR ---
NURSE HAND-OFF REPORT: Important Events on Shift: 3.1 Patient Status: Stable Diet: Pending Pending Orders: Y Pending Results/Labs: N Pending MD notification: Y Latest Vital Signs: Temperature 98.8 , Pulse 80 , B/P 96 /61 , Respiratory Rate 13 , O2 SAT 100 , Mechanical Ventilator, O2 Flow Rate . Vital Sign Comment: EKG Rhythm: Atrial Fibrillation Rhythm change?: N MD Notified?: - MD Response: Latest [place] Fall Score: 70 Fall Risk: High Risk Safety Measures: Call light Within Reach, Bed Alarm Zone 1, Side Rails Side Rails x3, Bed position Low and Locked. Fall Precautions: Yellow Socks Yellow Gown Patient Fall Education Report given to ROSALINO Hurd.
--- NOTE | 2020-05-09 07:53 | Consultation ---
History of Present Illness General Date patient seen: May 09, 2020 Time patient seen: 10:15 Chief Complaint: Abnormal Labs Referring physician: Dr. Mustafa Reason for Consultation: R/o UTI, pna Present Illness HPI 89yo F non-verbal, vegetative state, from SNF, who p/w anemia to 6.0 and hypotension, UCx positive and CXR w/ possible pna, for which ID is consulted. Pt is non-verbal. History obtained via chart review. Per ED note, pt p/w anemia , HIRO on labs, hypotensive en route but NAD. Trach and vent dependent. Trach placed 5 days ago, COVID neg at that time. PMH/PSH: GIB, ICH, trach and vent dependent, HTN, GERD NKDA Social hx: Resides at [facility] Fam hx: Non-contributory Allergies: Coded Allergies: No Known Allergies (Unverified , 05/08/20) Medication History Scheduled Albuterol Sulfate* (Albuterol Sulfate Hfa*), 2 PUFF INH Q3H, (Reported) Atorvastatin Calcium* (Lipitor*), 10 MG ORAL BEDTIME, (Reported) Clopidogrel Bisulfate* (Plavix*), 75 MG ORAL DAILY, (Reported) Diltiazem Hcl* (Cardizem*), 90 MG ORAL EVERY 6 HOURS, (Reported) Docusate Sodium* (Colace*), 100 MG ORAL DAILY, (Reported) Furosemide* (Lasix*), 20 MG ORAL DAILY, (Reported) Insulin Regular, Human* (Novolin R*), 0 SUBQ .SLIDING SCALE, (Reported) Magnesium Hydroxide* (Milk Of Magnesia*), 30 ML ORAL DAILY, (Reported) Metoclopramide Hcl* (Reglan*), 5 MG ORAL EVERY 6 HOURS, (Reported) Oxybutynin Chloride (Ditropan Xl), 5 MG ORAL DAILY, (Reported) Pantoprazole* (Protonix*), 40 MG ORAL DAILY, (Reported) Valsartan (Diovan), 80 MG ORAL DAILY, (Reported) Scheduled PRN Acetaminophen* (Acetaminophen 325MG Tablet*), 325 MG ORAL Q4H PRN for For Pain, (Reported) Miscellaneous Medications Chlorhexidine Gluconate* (Hibiclens*), 118 ML TP, (Reported) Cholecalciferol (Vitamin D3) (Vitamin D3), 5,000 UNIT MC, (Reported) Gel Base No.41 (Hydrogel), 3,000 GM MC, (Reported) Iron,Carbonyl (Feosol), 325 MG PO, (Reported) Silver Sulfadiazine (Silver Sulfadiazine), 50 GM TP, (Reported) Patient History Healthcare decision maker Resuscitation status Advanced Directive on File Review of Systems ROS Narrative Unable to obtain 2/2 pt condition Physical Exam Physical Exam Narrative Gen: Older woman, NAD on vent 35% Fi02 HEENT: OP clear, trach CV: RRR Pulm: CTAB anteriorly Abd: Soft, NTND Neuro: Not interactive Last 24 Hour Vital Signs Date Time Temp Pulse Resp B/P (MAP) Pulse Ox O2 Delivery O2 Flow Rate FiO2 05/09/20 07:17 80 13 35 05/09/20 05:22 100 16 35 05/09/20 04:00 35 05/09/20 04:00 Mechanical Ventilator 05/09/20 04:00 98.8 90 18 96/61 (73) 100 05/09/20 03:42 107 05/09/20 03:30 89 14 35 05/09/20 01:14 113 17 35 05/09/20 00:00 Mechanical Ventilator 05/09/20 00:00 98.2 108 18 103/76 (85) 100 05/08/20 23:33 133 05/08/20 23:25 110 16 35 05/08/20 21:07 102 12 35 05/08/20 20:00 99.7 79 14 91/51 (64) 100 05/08/20 20:00 Mechanical Ventilator 05/08/20 20:00 35 05/08/20 19:22 82 05/08/20 19:20 89 17 35 05/08/20 17:21 82 15 35 05/08/20 16:00 92 05/08/20 16:00 35 05/08/20 15:57 105 16 97/48 (64) 100 05/08/20 15:51 97.7 79 15 70/34 (46) 100 05/08/20 14:56 128 16 100 Mechanical Ventilator 35 05/08/20 14:56 128 16 35 05/08/20 14:33 Mechanical Ventilator 05/08/20 14:00 97.9 103 18 111/90 (97) 100 05/08/20 13:56 97.5 123 17 90/54 100 Mechanical Ventilator 35 05/08/20 13:51 97.5 123 17 90/54 100 Mechanical Ventilator 35 05/08/20 13:30 97.9 120 17 85/58 100 Mechanical Ventilator 35 05/08/20 13:25 127 16 35 05/08/20 11:10 68 24 35 05/08/20 10:49 96.4 87 19 82/60 100 Mechanical Ventilator 05/08/20 10:45 35 05/08/20 10:39 96.4 59 22 82/60 (67) 99 Trach Collar Intake and Output 05/08/20 05/09/20 19:00 07:00 Intake Total 560 ml 741.6 ml Output Total 101 ml 600 ml Balance 459 ml 141.6 ml Intake Free Water 20 ml IV Total 60 ml 721.6 ml Blood Product 500 ml Output Urine Total 101 ml 600 ml # Voids 100 # Bowel Movements 2 Laboratory Tests Test 05/08/20 10:50 05/08/20 12:00 05/08/20 13:30 05/08/20 19:45 Urine Color Yellow Urine Appearance Slightly cloudy Urine pH 5 (4.5-8.0) Urine Specific [place] 1.010 (1.005-1.035) Urine Protein Negative (NEGATIVE) Urine Glucose (UA) Negative (NEGATIVE) Urine Ketones Negative (NEGATIVE) Urine Blood 3+ (NEGATIVE) H Urine Nitrite Negative (NEGATIVE) Urine Bilirubin Negative (NEGATIVE) Urine Urobilinogen Normal MG/DL (0.0-1.0) Urine Leukocyte Esterase 2+ (NEGATIVE) H Urine RBC 15-20 /HPF (0 - 2) H Urine WBC 20-30 /HPF (0 - 2) H Urine Squamous Epithelial Cells Moderate /LPF (NONE/OCC) H Urine Bacteria Moderate /HPF (NONE) H Urine Yeast Many /HPF (NONE) H White Blood Count 9.5 K/UL (4.8-10.8) Red Blood Count 2.01 M/UL (4.20-5.40) L Hemoglobin 6.0 G/DL (12.0-16.0) *L Hematocrit 18.3 % (37.0-47.0) L Mean Corpuscular Volume 91 FL (80-99) Mean Corpuscular Hemoglobin 29.8 PG (27.0-31.0) Mean Corpuscular Hemoglobin Concent 32.7 G/DL (32.0-36.0) Red Cell Distribution Width 12.2 % (11.6-14.8) Platelet Count 153 K/UL (150-450) Mean Platelet Volume 9.3 FL (6.5-10.1) Neutrophils (%) (Auto) % (45.0-75.0) Lymphocytes (%) (Auto) % (20.0-45.0) Monocytes (%) (Auto) % (1.0-10.0) Eosinophils (%) (Auto) % (0.0-3.0) Basophils (%) (Auto) % (0.0-2.0) Differential Total Cells Counted 100 Neutrophils % (Manual) 80 % (45-75) H Lymphocytes % (Manual) 11 % (20-45) L Monocytes % (Manual) 6 % (1-10) Eosinophils % (Manual) 1 % (0-3) Basophils % (Manual) 1 % (0-2) Band Neutrophils 1 % (0-8) Platelet Estimate Adequate Platelet Morphology Normal Hypochromasia 4+ Anisocytosis 1+ Spherocytes 2+ Prothrombin Time 10.2 SEC (9.30-11.50) Prothromb Time International Ratio 0.9 (0.9-1.1) Activated Partial Thromboplast Time 25 SEC (23-33) Sodium Level 125 MMOL/L (136-145) L Potassium Level 3.7 MMOL/L (3.5-5.1) Chloride Level 85 MMOL/L (98-107) L Carbon Dioxide Level 34 MMOL/L (21-32) H Anion Gap 6 mmol/L (5-15) Blood Urea Nitrogen 112 mg/dL (7-18) H Creatinine 1.8 MG/DL (0.55-1.30) H Estimat Glomerular Filtration Rate 26.6 mL/min (>60) Glucose Level 127 MG/DL (74-106) H Lactic Acid Level 3.20 mmol/L (0.4-2.0) H 2.60 mmol/L (0.66-2.22) H Calcium Level 7.3 MG/DL (8.5-10.1) L Total Bilirubin 0.5 MG/DL (0.2-1.0) Aspartate Amino Transf (AST/SGOT) 62 U/L (15-37) H Alanine Aminotransferase (ALT/SGPT) 46 U/L (12-78) Alkaline Phosphatase 87 U/L (46-116) Troponin I 3.205 ng/mL (0.000-0.056) 2.111 ng/mL (0.000-0.056) Pro-B-Type Natriuretic Peptide 72999 pg/mL (0-125) H Total Protein 4.8 G/DL (6.4-8.2) L Albumin 1.8 G/DL (3.4-5.0) L Globulin 3.0 g/dL Albumin/Globulin Ratio 0.6 (1.0-2.7) L Test 05/09/20 03:23 White Blood Count 8.0 K/UL (4.8-10.8) Red Blood Count 2.92 M/UL (4.20-5.40) L Hemoglobin 8.6 G/DL (12.0-16.0) #L Hematocrit 25.5 % (37.0-47.0) #L Mean Corpuscular Volume 87 FL (80-99) Mean Corpuscular Hemoglobin 29.4 PG (27.0-31.0) Mean Corpuscular Hemoglobin Concent 33.6 G/DL (32.0-36.0) Red Cell Distribution Width 12.5 % (11.6-14.8) Platelet Count 141 K/UL (150-450) L Mean Platelet Volume 8.0 FL (6.5-10.1) Neutrophils (%) (Auto) % (45.0-75.0) Lymphocytes (%) (Auto) % (20.0-45.0) Monocytes (%) (Auto) % (1.0-10.0) Eosinophils (%) (Auto) % (0.0-3.0) Basophils (%) (Auto) % (0.0-2.0) Sodium Level 130 MMOL/L (136-145) L Potassium Level 3.1 MMOL/L (3.5-5.1) L Chloride Level 92 MMOL/L (98-107) L Carbon Dioxide Level 31 MMOL/L (21-32) Anion Gap 7 mmol/L (5-15) Blood Urea Nitrogen 103 mg/dL (7-18) H Creatinine 1.5 MG/DL (0.55-1.30) H Estimat Glomerular Filtration Rate 32.9 mL/min (>60) Glucose Level 128 MG/DL (74-106) H Uric Acid 9.8 MG/DL (2.6-7.2) H Calcium Level 6.8 MG/DL (8.5-10.1) L Phosphorus Level 4.5 MG/DL (2.5-4.9) Magnesium Level 2.2 MG/DL (1.8-2.4) Iron Level Pending Unsaturated Iron Binding Pending Ferritin Pending Total Bilirubin 0.6 MG/DL (0.2-1.0) Aspartate Amino Transf (AST/SGOT) 57 U/L (15-37) H Alanine Aminotransferase (ALT/SGPT) 45 U/L (12-78) Alkaline Phosphatase 92 U/L (46-116) Lactate Dehydrogenase Pending Troponin I 1.928 ng/mL (0.000-0.056) C-Reactive Protein, Quantitative 9.9 mg/dL (0.00-0.90) H Pro-B-Type Natriuretic Peptide 41885 pg/mL (0-125) H Total Protein 4.7 G/DL (6.4-8.2) L Albumin 1.7 G/DL (3.4-5.0) L Globulin 3.0 g/dL Albumin/Globulin Ratio 0.6 (1.0-2.7) L Folate Pending Thyroid Stimulating Hormone (TSH) Pending Cortisol AM Sample Pending Microbiology Date/Time Source Procedure Growth Status 05/08/20 10:30 Nasopharynx SARS-CoV-2 RdRp Gene Assay - Final Complete 05/08/20 10:50 Urine,Clean Catch Urine Culture - Preliminary Gram Negative Bacillus 1 Resulted 05/08/20 12:00 Rectum Received Height (Feet): 5 Height (Inches): 3.00 Weight (Pounds): 139 Medications Current Medications Medications (Trade) Dose Ordered Sig/Sherie Route PRN Reason Start Time Stop Time Status Last Admin Dose Admin Dextrose/Sodium Chloride 1,000 ml @ 100 mls/hr Q10H IV 05/08/20 16:00 06/07/20 15:59 05/09/20 02:47 Pantoprazole (Protonix) 40 mg DAILY IVP 05/09/20 09:00 06/08/20 08:59 Pantoprazole (Protonix) 40 mg EVERY 12 HOURS IVP 05/08/20 21:00 06/07/20 20:59 05/08/20 21:39 Potassium Chloride 100 ml @ 100 mls/hr Q1HR IVPB 05/09/20 08:00 05/09/20 11:59 UNV Sucralfate (Carafate) 1 gm FOUR TIMES A DAY GT 05/08/20 18:00 08/06/20 17:59 05/08/20 21:40 Assessment/Plan Assessment/Plan: 89yo F with: Hypotension in setting of anemia to 6.0 Normal WBC Afebrile, Tmax 99.7 05/08 BCx p MRSA nares p Possible UTI 05/08 UA+, UCx >100k GNR Possible pna, vent dependent via trach 05/08 CXR: Patchy opacities throughout the lungs which may represent pulmonary edema versus infectious/inflammatory process. Possible small pleural effusions. 05/08 COVID rapid Ag neg x1 Volume OL? 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 [facility] will continue to follow. Ashley Snyder M.D. May 09, 2020 07:53
[2020-05-09 07:55] LABS: FERRITIN 1338 NG/ML (8-388); LACTATE DEHYDROGENASE 462 U/L (81-234)
[2020-05-09 07:58] LABS: % IRON SATURATION 20 % (15-50); IRON 23 ug/dL (50-175); TOTAL IRON BINDING CAPACITY 115 ug/dL (250-450)
[2020-05-09 08:00] VITALS: BP 111/55
--- NOTE | 2020-05-09 08:00 | NUR ---
NURSE NOTES: Received report from ROSALINO Nieto. Patient obtunded, A. fib with HR 80. Trach to vent Shiley 8 AC 10 TV 400 Fio2 35% PEEP 5, NPO at this time, will follow up with MD. Patient on [place] Catheter draining well to gravity at this time. Right femoral PICC TLC intact and patent. IVF running as prescribed rate D5W @ 100ml/h, endorsed MD made aware of K level. Bed in lowest position, side rails upx3, call light within reach, bed alarm on, Will continue to monitor.
[2020-05-09] MEDS: Sucralfate 1gm tab GT SCH ×4 (09:00→20:38)
[2020-05-09] MEDS: Pantoprazole Inj IVP SCH ×2 (09:00→20:38)
[2020-05-09] MEDS ORDERED: Pantoprazole Inj IVP SCH ×2 (09:00)
--- NOTE | 2020-05-09 09:06 | NUR ---
RADIOLOGY DEPT., CHEST X-RAY DONE.-P.DYE
--- NOTE | 2020-05-09 09:43 | General Progress Note ---
Assessment/Plan Problem List: (1) Feeding by G-tube ICD Codes: Z93.1 - Gastrostomy status SNOMED: 019771075, 076599040, 121846062 (2) Chronic respiratory failure ICD Codes: J96.10 - Chronic respiratory failure, unspecified whether with hypoxia or hypercapnia SNOMED: 73016776 (3) Hyponatremia ICD Codes: E87.1 - Hypo-osmolality and hyponatremia SNOMED: 15215529 (4) UTI (urinary tract infection) ICD Codes: N39.0 - Urinary tract infection, site not specified SNOMED: 57273494 (5) Hypotension ICD Codes: I95.9 - Hypotension, unspecified SNOMED: 98986404 (6) NSTEMI (non-ST elevated myocardial infarction) ICD Codes: I21.4 - Non-ST elevation (NSTEMI) myocardial infarction SNOMED: 94696797 (7) Anemia ICD Codes: D64.9 - Anemia, unspecified SNOMED: 373717182 (8) HIRO (acute kidney injury) ICD Codes: N17.9 - Acute kidney failure, unspecified SNOMED: 28939491, 8680959 Assessment/Plan: ppi GTF on hold abx per ID monitor H&H plan EGD if cleared by cardiology stool ob Subjective ROS Limited/Unobtainable: No Allergies: Coded Allergies: No Known Allergies (Unverified , 05/08/20) Objective Last 24 Hour Vital Signs Date Time Temp Pulse Resp B/P (MAP) Pulse Ox O2 Delivery O2 Flow Rate FiO2 05/09/20 08:49 84 15 35 05/09/20 08:00 98.6 82 18 111/55 (73) 99 05/09/20 07:17 80 13 35 05/09/20 05:22 100 16 35 05/09/20 04:00 35 05/09/20 04:00 Mechanical Ventilator 05/09/20 04:00 98.8 90 18 96/61 (73) 100 05/09/20 03:42 107 05/09/20 03:30 89 14 35 05/09/20 01:14 113 17 35 05/09/20 00:00 Mechanical Ventilator 05/09/20 00:00 98.2 108 18 103/76 (85) 100 05/08/20 23:33 133 05/08/20 23:25 110 16 35 05/08/20 21:07 102 12 35 05/08/20 20:00 99.7 79 14 91/51 (64) 100 05/08/20 20:00 Mechanical Ventilator 05/08/20 20:00 35 05/08/20 19:22 82 05/08/20 19:20 89 17 35 05/08/20 17:21 82 15 35 05/08/20 16:00 92 05/08/20 16:00 35 05/08/20 15:57 105 16 97/48 (64) 100 05/08/20 15:51 97.7 79 15 70/34 (46) 100 05/08/20 14:56 128 16 100 Mechanical Ventilator 35 05/08/20 14:56 128 16 35 05/08/20 14:33 Mechanical Ventilator 05/08/20 14:00 97.9 103 18 111/90 (97) 100 05/08/20 13:56 97.5 123 17 90/54 100 Mechanical Ventilator 35 05/08/20 13:51 97.5 123 17 90/54 100 Mechanical Ventilator 35 05/08/20 13:30 97.9 120 17 85/58 100 Mechanical Ventilator 35 05/08/20 13:25 127 16 35 05/08/20 11:10 68 24 35 05/08/20 10:49 96.4 87 19 82/60 100 Mechanical Ventilator 05/08/20 10:45 35 05/08/20 10:39 96.4 59 22 82/60 (67) 99 Trach Collar Intake and Output 05/08/20 05/09/20 19:00 07:00 Intake Total 560 ml 741.6 ml Output Total 101 ml 600 ml Balance 459 ml 141.6 ml Intake Free Water 20 ml IV Total 60 ml 721.6 ml Blood Product 500 ml Output Urine Total 101 ml 600 ml # Voids 100 # Bowel Movements 2 Laboratory Tests 05/08/20 10:50: Urine Color Yellow, Urine Appearance Slightly cloudy, Urine pH 5, Urine Specific [place] 1.010, Urine Protein Negative, Urine Glucose (UA) Negative, Urine Ketones Negative, Urine Blood 3+H, Urine Nitrite Negative, Urine Bilirubin Negative, Urine Urobilinogen Normal, Urine Leukocyte Esterase 2+H, Urine RBC 15-20H, Urine WBC 20-30H, Urine Squamous Epithelial Cells ModerateH, Urine Bacteria ModerateH, Urine Yeast ManyH 05/08/20 12:00: White Blood Count 9.5, Red Blood Count 2.01L, Hemoglobin 6.0*L, Hematocrit 18.3L , Mean Corpuscular Volume 91, Mean Corpuscular Hemoglobin 29.8, Mean Corpuscular Hemoglobin Concent 32.7, Red Cell Distribution Width 12.2, Platelet Count 153, Mean Platelet Volume 9.3, Neutrophils (%) (Auto) , Lymphocytes (%) ( Auto) , Monocytes (%) (Auto) , Eosinophils (%) (Auto) , Basophils (%) (Auto) , Differential Total Cells Counted 100, Neutrophils % (Manual) 80H, Lymphocytes % (Manual) 11L, Monocytes % (Manual) 6, Eosinophils % (Manual) 1, Basophils % ( Manual) 1, Band Neutrophils 1, Platelet Estimate Adequate, Platelet Morphology Normal, Hypochromasia 4+, Anisocytosis 1+, Spherocytes 2+, Prothrombin Time 10.2 , Prothromb Time International Ratio 0.9, Activated Partial Thromboplast Time 25 , Sodium Level 125L, Potassium Level 3.7, Chloride Level 85L, Carbon Dioxide Level 34H, Anion Gap 6, Blood Urea Nitrogen 112H, Creatinine 1.8H, Estimat Glomerular Filtration Rate 26.6, Glucose Level 127H, Lactic Acid Level 3.20H, Calcium Level 7.3L, Total Bilirubin 0.5, Aspartate Amino Transf (AST/SGOT) 62H, Alanine Aminotransferase (ALT/SGPT) 46, Alkaline Phosphatase 87, Troponin I 3.205H, Pro-B-Type Natriuretic Peptide 12193F, Total Protein 4.8L, Albumin 1.8L , Globulin 3.0, Albumin/Globulin Ratio 0.6L 05/08/20 13:30: Lactic Acid Level 2.60H 05/08/20 19:45: Troponin I 2.111H 05/09/20 03:23: White Blood Count 8.0, Red Blood Count 2.92L, Hemoglobin 8.6#L, Hematocrit 25.5# L, Mean Corpuscular Volume 87, Mean Corpuscular Hemoglobin 29.4, Mean Corpuscular Hemoglobin Concent 33.6, Red Cell Distribution Width 12.5, Platelet Count 141L, Mean Platelet Volume 8.0, Neutrophils (%) (Auto) , Lymphocytes (%) ( Auto) , Monocytes (%) (Auto) , Eosinophils (%) (Auto) , Basophils (%) (Auto) , Reticulocyte Count [Pending], Sodium Level 130L, Potassium Level 3.1L, Chloride Level 92L, Carbon Dioxide Level 31, Anion Gap 7, Blood Urea Nitrogen 103H, Creatinine 1.5H, Estimat Glomerular Filtration Rate 32.9, Glucose Level 128H, Uric Acid 9.8H, Calcium Level 6.8L, Phosphorus Level 4.5, Magnesium Level 2.2, Iron Level 23L, Total Iron Binding Capacity 115L, Percent Iron Saturation 20, Unsaturated Iron Binding 92L, Ferritin 1338H, Total Bilirubin 0.6, Aspartate Amino Transf (AST/SGOT) 57H, Alanine Aminotransferase (ALT/SGPT) 45, Alkaline Phosphatase 92, Lactate Dehydrogenase 462H, Troponin I 1.928H, C-Reactive Protein, Quantitative 9.9H, Pro-B-Type Natriuretic Peptide 83998C, Total Protein 4.7L, Albumin 1.7L, Globulin 3.0, Albumin/Globulin Ratio 0.6L, Folate 15.5, Thyroid Stimulating Hormone (TSH) 1.954, Cortisol AM Sample [Pending] Height (Feet): 5 Height (Inches): 3.00 Weight (Pounds): 139 General Appearance: lethargic EENT: normal ENT inspection Neck: supple Cardiovascular: normal rate Respiratory/Chest: decreased breath sounds Abdomen: normal bowel sounds, non tender, soft Extremities: non-tender Jaylon Panchal MD May 09, 2020 09:43
--- NOTE | 2020-05-09 10:15 | Diagnostic Imaging Report ---
Indication: Shortness of breath Technique: One view of the chest Comparison: 05/08/2020 Findings: The heart is enlarged. There there is bilateral interstitial and airspace edema versus infiltrates, unchanged. There is evidence of pleural fluid bilaterally, left greater than right. Tracheostomy remains. Findings are unchanged Impression: Unchanged, over one day, findings as above.
[2020-05-09] MEDS: Piperacillin/Tazobactam 3.375 GM in NS 110 ML IVPB SCH ×2 (10:24→16:58)
--- NOTE | 2020-05-09 10:24 | Consultation ---
Consult Note Consult Note I am asked to evaluate this patient at the request of Dr. Patrick covering for Dr. Kauffman for renal failure. Patient examined, chronic trach connected to vent data reviewed Patient non-historian, Chief Complaint: Abnormal labs, hypotension HPI: 89-year-old female with a history of GI bleed, intracranial bleed, trach and vent dependent presents for evaluation of hypotension and abnormal labs. The patient was being transported by private ambulance to hospital for anemia with reported hemoglobin of 6.2, and for acute kidney injury with elevated BUN/ creatinine on outpatient labs. En route she became hypotensive with pressures in the 80s. Ambulance rerouted to our facility as we were the closest. She arrives still mildly hypotensive no acute distress. 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 No respiratory distress. Afebrile. Tracheostomy was put in 5 days ago. She was COVID negative at that time. PMH: Anemia, intracranial hemorrhage, trach and vent dependent, GI bleed, hypertension, GERD PSH: Trach., G-tube Social Hx: Cannot obtain Allergies: No Known Allergies (Unverified , 05/08/20) Review of Systems All Other Systems: limited - Cannot obtain from patient VITAL SIGNS: Show blood pressure 111/85 , pulse 82, respirations 18, temperature 97.7. General: Obtunded, no spontaneous movement. No obvious distress HEENT: NC/AT. Neck: Tracheostomy appears appropriately placed, no surrounding bleeding, erythema, purulent drainage. Cardiovascular: RRR. S1 and S2 normal. No murmur appreciated Resp: Normal work of breathing. No cough, wheezing or crackles appreciated Abdomen: Abdomen is soft, nondistended. Gastrostomy tube appears in appropriate position without surrounding signs of infection or trauma. Skin: Intact. No abrasions, laceration or rash over the exposed skin MSK: Normal tone and bulk. No spontaneous movement. Neuro: Obtunded, GCS 3. . Assessment/Plan Acute renal failure, mainly prerenal picture Non-STEMI: Troponin 2.1 Chronic ventilatory dependent respiratory failure, history of intracranial bleed Septic shock with lactic acidosis, possible UTI, possible pneumonia Severe hyponatremia Severe anemia, history of GI bleed Hypertension GERD Suggestions: Hydrate Hold BP medications IV Protonix, Carafate Antibiotics per ID Monitor renal parameters and electrolytes Potassium supplement as needed Transfusion as needed Per consultants I spent an additional 36 minutes on review of medical records including prior hospital records,consult notes, progress notes, procedures ,imaging labs, hemodynamics, and other clinical documentation. Dov Minor MD May 09, 2020 10:24
--- NOTE | 2020-05-09 11:07 | NUR ---
RD ASSESSMENT & RECOMMENDATIONS SEE CARE ACTIVITY FOR COMPLETE ASSESSMENT DAILY ESTIMATED NEEDS: Needs based on wound, critical care 47.5kg abw 25-30 kcals/kg 1421-7373 total kcals 1.25-2 g protein/kg 59-95 g total protein 25-30ml/kcal mL/kg 6673-1851 total fluid mLs NUTRITION DIAGNOSIS: Swallowing difficulty r/t respiratory status as evidenced by pt is trach and peg dep. CURRENT TF: NPO for EGD ENTERAL NUTRITION RECOMMENDATIONS: Osmolite 1.2 goal of 45ml/hr x24 hrs + Prosource 1 pack daily to provide 1080ml, 1296 kcal, 60g + 11g pro, 886ml free H2O - As medically able, start Osmolite low fiber TF @low rate 25ml/hr for 6 hrs. - Advance as tolerated 10ml/hr q4-6 hrs to goal - Flush per MD/ HOB over 30 degrees - Add Prosource 1 pack daily to better meet est pro needs. ADDITIONAL RECOMMENDATIONS: 1) F/up w/ WC eval, add GOLDIE BID w/ TF order 2) Per SNF : 4'8" (56 inches) and 142 lbs/64.55kg 3) Monitor renal function, lytes; need for renal TF formula 4) Monitor BG and need for carb control formula -> rec accuchecks + niss
--- NOTE | 2020-05-09 11:09 | Consultation ---
History of Present Illness General Date patient seen: May 09, 2020 Chief Complaint: Abnormal Labs Referring physician: Dr Kauffman Reason for Consultation: respiratory failure Present Illness HPI 89-year-old female with a history of Chronic respiratory failure, vegetative state, intracranial bleed, trach and vent dependent presented to ER for evaluation of hypotension and abnormal All laboratory, microbiology and radiology results were reviewed.including hemoglobin of 6.2 and elevated BUN/ creatinine. Pt wad diagnosed to have sepsis and pneumonia and admitted for further management. Allergies: Coded Allergies: No Known Allergies (Unverified , 05/08/20) Medication History Scheduled Albuterol Sulfate* (Albuterol Sulfate Hfa*), 2 PUFF INH Q3H, (Reported) Atorvastatin Calcium* (Lipitor*), 10 MG ORAL BEDTIME, (Reported) Clopidogrel Bisulfate* (Plavix*), 75 MG ORAL DAILY, (Reported) Diltiazem Hcl* (Cardizem*), 90 MG ORAL EVERY 6 HOURS, (Reported) Docusate Sodium* (Colace*), 100 MG ORAL DAILY, (Reported) Furosemide* (Lasix*), 20 MG ORAL DAILY, (Reported) Insulin Regular, Human* (Novolin R*), 0 SUBQ .SLIDING SCALE, (Reported) Magnesium Hydroxide* (Milk Of Magnesia*), 30 ML ORAL DAILY, (Reported) Metoclopramide Hcl* (Reglan*), 5 MG ORAL EVERY 6 HOURS, (Reported) Oxybutynin Chloride (Ditropan Xl), 5 MG ORAL DAILY, (Reported) Pantoprazole* (Protonix*), 40 MG ORAL DAILY, (Reported) Valsartan (Diovan), 80 MG ORAL DAILY, (Reported) Scheduled PRN Acetaminophen* (Acetaminophen 325MG Tablet*), 325 MG ORAL Q4H PRN for For Pain, (Reported) Miscellaneous Medications Chlorhexidine Gluconate* (Hibiclens*), 118 ML TP, (Reported) Cholecalciferol (Vitamin D3) (Vitamin D3), 5,000 UNIT MC, (Reported) Gel Base No.41 (Hydrogel), 3,000 GM MC, (Reported) Iron,Carbonyl (Feosol), 325 MG PO, (Reported) Silver Sulfadiazine (Silver Sulfadiazine), 50 GM TP, (Reported) Patient History Healthcare decision maker Resuscitation status Advanced Directive on File Past Medical/Surgical History Past Medical/Surgical History: (1) Chronic respiratory failure (2) Feeding by G-tube (3) Chronic vegetative state (4) ICH (intracerebral hemorrhage) Review of Systems Constitutional: Reports: no symptoms All Other Systems: negative except mentioned in HPI Physical Exam General Appearance: WD/WN, no apparent distress Lines, tubes and drains: peripheral HEENT: normocephalic, atraumatic Respiratory/Chest: chest wall non-tender, lungs clear Cardiovascular/Chest: normal peripheral pulses, normal rate Abdomen: normal bowel sounds, non tender Genitourinary/Rectal: normal genital exam Extremities: normal range of motion Skin Exam: normal pigmentation Last 24 Hour Vital Signs Date Time Temp Pulse Resp B/P (MAP) Pulse Ox O2 Delivery O2 Flow Rate FiO2 05/09/20 11:04 110 20 35 05/09/20 08:49 84 15 35 05/09/20 08:00 85 05/09/20 08:00 98.6 82 18 111/55 (73) 99 05/09/20 07:17 80 13 35 05/09/20 05:22 100 16 35 05/09/20 04:00 35 05/09/20 04:00 Mechanical Ventilator 05/09/20 04:00 98.8 90 18 96/61 (73) 100 05/09/20 03:42 107 05/09/20 03:30 89 14 35 05/09/20 01:14 113 17 35 05/09/20 00:00 Mechanical Ventilator 05/09/20 00:00 98.2 108 18 103/76 (85) 100 05/08/20 23:33 133 05/08/20 23:25 110 16 35 05/08/20 21:07 102 12 35 05/08/20 20:00 99.7 79 14 91/51 (64) 100 05/08/20 20:00 Mechanical Ventilator 05/08/20 20:00 35 05/08/20 19:22 82 05/08/20 19:20 89 17 35 05/08/20 17:21 82 15 35 05/08/20 16:00 92 05/08/20 16:00 35 05/08/20 15:57 105 16 97/48 (64) 100 05/08/20 15:51 97.7 79 15 70/34 (46) 100 8/16/20 14:56 128 16 100 Mechanical Ventilator 35 05/08/20 14:56 128 16 35 05/08/20 14:33 Mechanical Ventilator 05/08/20 14:00 97.9 103 18 111/90 (97) 100 05/08/20 13:56 97.5 123 17 90/54 100 Mechanical Ventilator 35 05/08/20 13:51 97.5 123 17 90/54 100 Mechanical Ventilator 35 05/08/20 13:30 97.9 120 17 85/58 100 Mechanical Ventilator 35 05/08/20 13:25 127 16 35 05/08/20 11:10 68 24 35 Intake and Output 05/08/20 05/09/20 19:00 07:00 Intake Total 560 ml 741.6 ml Output Total 101 ml 600 ml Balance 459 ml 141.6 ml Intake Free Water 20 ml IV Total 60 ml 721.6 ml Blood Product 500 ml Output Urine Total 101 ml 600 ml # Voids 100 # Bowel Movements 2 Laboratory Tests Test 05/08/20 12:00 05/08/20 13:30 05/08/20 19:45 05/09/20 03:23 White Blood Count 9.5 K/UL (4.8-10.8) 8.0 K/UL (4.8-10.8) Red Blood Count 2.01 M/UL (4.20-5.40) L 2.92 M/UL (4.20-5.40) L Hemoglobin 6.0 G/DL (12.0-16.0) *L 8.6 G/DL (12.0-16.0) #L Hematocrit 18.3 % (37.0-47.0) L 25.5 % (37.0-47.0) #L Mean Corpuscular Volume 91 FL (80-99) 87 FL (80-99) Mean Corpuscular Hemoglobin 29.8 PG (27.0-31.0) 29.4 PG (27.0-31.0) Mean Corpuscular Hemoglobin Concent 32.7 G/DL (32.0-36.0) 33.6 G/DL (32.0-36.0) Red Cell Distribution Width 12.2 % (11.6-14.8) 12.5 % (11.6-14.8) Platelet Count 153 K/UL (150-450) 141 K/UL (150-450) L Mean Platelet Volume 9.3 FL (6.5-10.1) 8.0 FL (6.5-10.1) Neutrophils (%) (Auto) % (45.0-75.0) % (45.0-75.0) Lymphocytes (%) (Auto) % (20.0-45.0) % (20.0-45.0) Monocytes (%) (Auto) % (1.0-10.0) % (1.0-10.0) Eosinophils (%) (Auto) % (0.0-3.0) % (0.0-3.0) Basophils (%) (Auto) % (0.0-2.0) % (0.0-2.0) Differential Total Cells Counted 100 Neutrophils % (Manual) 80 % (45-75) H Lymphocytes % (Manual) 11 % (20-45) L Monocytes % (Manual) 6 % (1-10) Eosinophils % (Manual) 1 % (0-3) Basophils % (Manual) 1 % (0-2) Band Neutrophils 1 % (0-8) Platelet Estimate Adequate Platelet Morphology Normal Hypochromasia 4+ Anisocytosis 1+ Spherocytes 2+ Prothrombin Time 10.2 SEC (9.30-11.50) Prothromb Time International Ratio 0.9 (0.9-1.1) Activated Partial Thromboplast Time 25 SEC (23-33) Sodium Level 125 MMOL/L (136-145) L 130 MMOL/L (136-145) L Potassium Level 3.7 MMOL/L (3.5-5.1) 3.1 MMOL/L (3.5-5.1) L Chloride Level 85 MMOL/L (98-107) L 92 MMOL/L (98-107) L Carbon Dioxide Level 34 MMOL/L (21-32) H 31 MMOL/L (21-32) Anion Gap 6 mmol/L (5-15) 7 mmol/L (5-15) Blood Urea Nitrogen 112 mg/dL (7-18) H 103 mg/dL (7-18) H Creatinine 1.8 MG/DL (0.55-1.30) H 1.5 MG/DL (0.55-1.30) H Estimat Glomerular Filtration Rate 26.6 mL/min (>60) 32.9 mL/min (>60) Glucose Level 127 MG/DL (74-106) H 128 MG/DL (74-106) H Lactic Acid Level 3.20 mmol/L (0.4-2.0) H 2.60 mmol/L (0.66-2.22) H Calcium Level 7.3 MG/DL (8.5-10.1) L 6.8 MG/DL (8.5-10.1) L Total Bilirubin 0.5 MG/DL (0.2-1.0) 0.6 MG/DL (0.2-1.0) Aspartate Amino Transf (AST/SGOT) 62 U/L (15-37) H 57 U/L (15-37) H Alanine Aminotransferase (ALT/SGPT) 46 U/L (12-78) 45 U/L (12-78) Alkaline Phosphatase 87 U/L (46-116) 92 U/L (46-116) Troponin I 3.205 ng/mL (0.000-0.056) 2.111 ng/mL (0.000-0.056) 1.928 ng/mL (0.000-0.056) Pro-B-Type Natriuretic Peptide 53604 pg/mL (0-125) H 70623 pg/mL (0-125) H Total Protein 4.8 G/DL (6.4-8.2) L 4.7 G/DL (6.4-8.2) L Albumin 1.8 G/DL (3.4-5.0) L 1.7 G/DL (3.4-5.0) L Globulin 3.0 g/dL 3.0 g/dL Albumin/Globulin Ratio 0.6 (1.0-2.7) L 0.6 (1.0-2.7) L Reticulocyte Count 1.8 % (0.5-2.0) Uric Acid 9.8 MG/DL (2.6-7.2) H Phosphorus Level 4.5 MG/DL (2.5-4.9) Magnesium Level 2.2 MG/DL (1.8-2.4) Iron Level 23 ug/dL (50-175) L Total Iron Binding Capacity 115 ug/dL (250-450) L Percent Iron Saturation 20 % (15-50) Unsaturated Iron Binding 92 ug/dL (112-346) L Ferritin 1338 NG/ML (8-388) H Lactate Dehydrogenase 462 U/L (81-234) H C-Reactive Protein, Quantitative 9.9 mg/dL (0.00-0.90) H Folate 15.5 NG/ML (8.6-58.9) Thyroid Stimulating Hormone (TSH) 1.954 uiU/mL (0.358-3.740) Cortisol AM Sample Pending Microbiology Date/Time Source Procedure Growth Status 05/09/20 09:05 Nasopharynx SARS-CoV-2 RdRp Gene Assay - Final Complete 05/08/20 12:00 Rectum Received Height (Feet): 5 Height (Inches): 3.00 Weight (Pounds): 139 Medications Current Medications Medications (Trade) Dose Ordered Sig/Sherie Route PRN Reason Start Time Stop Time Status Last Admin Dose Admin Dextrose/Sodium Chloride 1,000 ml @ 100 mls/hr Q10H IV 05/08/20 16:00 06/07/20 15:59 05/09/20 02:47 Docusate Sodium (Colace) 100 mg TWICE A DAY NG 05/09/20 18:00 06/08/20 17:59 Pantoprazole (Protonix) 40 mg EVERY 12 HOURS IVP 05/08/20 21:00 06/07/20 20:59 05/09/20 09:00 Piperacillin Sod/ Tazobactam Sod 3.375 gm/Sodium Chloride 110 ml @ 27.5 mls/hr Q8H IVPB 05/09/20 09:00 05/16/20 08:59 05/09/20 10:24 Polyethylene Glycol (Miralax) 17 gm BEDTIME NG 05/09/20 21:00 06/08/20 20:59 Potassium Chloride 100 ml @ 100 mls/hr Q1H IVPB 05/09/20 08:30 05/09/20 12:29 05/09/20 10:24 Sucralfate (Carafate) 1 gm FOUR TIMES A DAY GT 05/08/20 18:00 08/06/20 17:59 05/09/20 09:00 Assessment/Plan Problem List: (1) Nosocomial pneumonia ICD Codes: J18.9 - Pneumonia, unspecified organism; Y95 - Nosocomial condition SNOMED: 629753681 (2) Sepsis ICD Codes: A41.9 - Sepsis, unspecified organism SNOMED: 41765656 (3) UTI (urinary tract infection) ICD Codes: N39.0 - Urinary tract infection, site not specified SNOMED: 01344069 (4) Chronic respiratory failure ICD Codes: J96.10 - Chronic respiratory failure, unspecified whether with hypoxia or hypercapnia SNOMED: 89057711 (5) HIRO (acute kidney injury) ICD Codes: N17.9 - Acute kidney failure, unspecified SNOMED: 41304367, 8741496 (6) Chronic vegetative state ICD Codes: R40.3 - Persistent vegetative state SNOMED: 54402790 (7) ICH (intracerebral hemorrhage) ICD Codes: I61.9 - Nontraumatic intracerebral hemorrhage, unspecified SNOMED: 508083379 (8) Feeding by G-tube ICD Codes: Z93.1 - Gastrostomy status SNOMED: 318788760, 006462334, 852303348 Respiratory: adjust tidal volume, monitor respiratory rate, adjust FIO2, CXR Cardiac: continue pressors, continue to monitor HR/BP Renal: F/U I&O, keep IV fluid, check electrolytes Infectious Disease: check cultures, continue antibiotics Gastrointestinal: continue feedings/current rate Endocrine: monitor blood sugar, check HgA1C, continue sliding scale insulin Hematologic: monitor H/H, transfuse if hgb<8.5 Neurologic: PRN Ativan, PRN Morphine, keep patient comfortable Affect: PRN ativan Time Spent (Minutes): 40 Notes Reviewed: accounting methods analyst, cardio, renal Discussed with: nurses, consultants, egg caser Chadwick Parry MD May 09, 2020 11:09
[2020-05-09 12:00] VITALS: BP 121/57
--- NOTE | 2020-05-09 13:00 | NUR ---
NURSE NOTES:WOUND CARE NOTES:Pt presented on admission with Tracheostomy ,Generalized edemae, Multiple Pressure injuries. DTPI that is de-capped L Scapula(L)3.4cmx (W)7.3cm. Base of wound is 90% slough 10% Loose purpuric base and edges. Surrounding non-blanching erythema. Inferior L scapula ,but in close proximity is DTPI (L)1.9cm x (W)4.4cm. Base of wound is purpuric with Maroon borders. Within close proximity to both wounds #3 linear purpuric areas that fans from scapula area outward towards thoracic spine. DTPI Sacrococcygeal to L Buttocks (L)7.4cm x (W)4.3cm.Base of wound is purpuric and indurated with surrounding non-blanching erythema. Two Partial thickness pressure injuries noted to L buttocks(Proximal)2.5cm x (W)4.6cm. Base of wound is moist and viable. Surrounding Non-Blanching erythema. (Distal)1cm x (W)1cm. Base of wound is moist and viable. Surrounding Non-Blanching erythema. Perineal area is erythematous and moist . A purpuric area that is fluctuant noted at Perineum. Bilat lower ext are edematous. 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 A second smaller serous Bulla noted to dorso/lateral R foot (L)2cm x(W)2.2cm.Scattered small purpuric areas noted to heads of 2nd ,3rd,4th metatarsals. Multiple purpuric areas noted to distal/lateral L tibia and L foot. Elongated Purpuric Area with Marginal erythema along edges noted to distal/Lateral L tibia(L)7cm x (W)1.8cm. L Heel /L Foot is an irregular shaped Purpuric area with marginal erythema without fluctuance/induration (L)3cm x (W)9.5cm. L Lateral Malleolus DTPI(L)1.5cm x (W)1.9cm.. Base of injury is fluctuant, purpuric with Maroon borders. DTPI distal/lateral L foot (L)1.5cm x (W)1.5cm. Base of injury is maroon with fluctuance. L Heel is boggy with non-blanchable erythema. Tx.Plan: Cleanse wound L Scapula with Saline. Apply Therahoney. Apply Cavilon Skin Barrier Periwound. Cover with Optifoam Drsg every 3 days and prn. Apply Cavilon Skin Barrier to Purpuric areas L Scapula. Cover with Optifoam drsg every 3 days and prn. Apply Moisture Barrier Paste to Sacrum and L Buttocks. Cover each site with Optifoam drsgs. Change every 3 days and PRN. Apply Cavilon Skin Barrier [place] to Blisters R foot. Cover with ABD Pads and wrap with Kerlix every 3 days and prn. Apply Cavilon Barrier [place] To Purpuric areas Distal L tibia and L foot. Cover with ABD Pads and wrap with Kerlix every 3 days and prn. Reposition at least every 2hors or as tolerated . Off-load heels with Pillow. Place Pillow between knees. APM/CAILIN Mattress.
--- NOTE | 2020-05-09 14:38 | Consultation ---
History of Present Illness General Date patient seen: May 09, 2020 Chief Complaint: Abnormal Labs Referring physician: Dr Kauffman Reason for Consultation: respiratory failure Present Illness HPI 89-year-old female with a history of GI bleed, intracranial bleed, trach and vent dependent presents for evaluation of hypotension and abnormal labs. The patient was being transported by private ambulance to hospital for anemia with reported hemoglobin of 6.2, and for acute kidney injury with elevated BUN/ creatinine on outpatient labs. En route she became hypotensive with pressures in the 80s. Ambulance rerouted to our facility as we were the closest. She arrives still mildly hypotensive no acute distress. 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 per report recent trach and surgery called toe valuate and assist with care. Allergies: Coded Allergies: No Known Allergies (Unverified , 05/08/20) Medication History Scheduled Albuterol Sulfate* (Albuterol Sulfate Hfa*), 2 PUFF INH Q3H, (Reported) Atorvastatin Calcium* (Lipitor*), 10 MG ORAL BEDTIME, (Reported) Clopidogrel Bisulfate* (Plavix*), 75 MG ORAL DAILY, (Reported) Diltiazem Hcl* (Cardizem*), 90 MG ORAL EVERY 6 HOURS, (Reported) Docusate Sodium* (Colace*), 100 MG ORAL DAILY, (Reported) Furosemide* (Lasix*), 20 MG ORAL DAILY, (Reported) Insulin Regular, Human* (Novolin R*), 0 SUBQ .SLIDING SCALE, (Reported) Magnesium Hydroxide* (Milk Of Magnesia*), 30 ML ORAL DAILY, (Reported) Metoclopramide Hcl* (Reglan*), 5 MG ORAL EVERY 6 HOURS, (Reported) Oxybutynin Chloride (Ditropan Xl), 5 MG ORAL DAILY, (Reported) Pantoprazole* (Protonix*), 40 MG ORAL DAILY, (Reported) Valsartan (Diovan), 80 MG ORAL DAILY, (Reported) Scheduled PRN Acetaminophen* (Acetaminophen 325MG Tablet*), 325 MG ORAL Q4H PRN for For Pain, (Reported) Miscellaneous Medications Chlorhexidine Gluconate* (Hibiclens*), 118 ML TP, (Reported) Cholecalciferol (Vitamin D3) (Vitamin D3), 5,000 UNIT MC, (Reported) Gel Base No.41 (Hydrogel), 3,000 GM MC, (Reported) Iron,Carbonyl (Feosol), 325 MG PO, (Reported) Silver Sulfadiazine (Silver Sulfadiazine), 50 GM TP, (Reported) Patient History Limited by: medical condition History Provided By: Medical Record, PMD Healthcare decision maker Resuscitation status Advanced Directive on File Past Medical/Surgical History Past Medical/Surgical History: (1) Sepsis (2) Nosocomial pneumonia (3) Hyponatremia (4) UTI (urinary tract infection) (5) Hypotension (6) Chronic respiratory failure (7) Anemia (8) NSTEMI (non-ST elevated myocardial infarction) (9) Feeding by G-tube (10) HIRO (acute kidney injury) (11) Chronic vegetative state (12) ICH (intracerebral hemorrhage) Review of Systems All Other Systems: negative except mentioned in HPI ROS Narrative cannot obtain given medical condition Physical Exam General Appearance: mild distress Lines, tubes and drains: peripheral HEENT: mucous membranes moist Neck: trach Respiratory/Chest: on vent Cardiovascular/Chest: normal peripheral pulses, normal rate, regular rhythm Abdomen: soft, no organomegaly, no mass, feeding tube, other Genitourinary/Rectal: normal rectal exam Extremities: normal capillary refill, other Skin Exam: other Neurologic: unresponsiveness Last 24 Hour Vital Signs Date Time Temp Pulse Resp B/P (MAP) Pulse Ox O2 Delivery O2 Flow Rate FiO2 05/09/20 13:35 120 21 35 05/09/20 12:00 97.9 74 18 121/57 (78) 99 05/09/20 12:00 35 05/09/20 12:00 65 05/09/20 12:00 Mechanical Ventilator 05/09/20 11:04 110 20 35 05/09/20 08:49 84 15 35 05/09/20 08:00 85 05/09/20 08:00 35 05/09/20 08:00 Mechanical Ventilator 05/09/20 08:00 98.6 82 18 111/55 (73) 99 05/09/20 07:17 80 13 35 05/09/20 05:22 100 16 35 05/09/20 04:00 35 05/09/20 04:00 Mechanical Ventilator 05/09/20 04:00 98.8 90 18 96/61 (73) 100 8/17/20 03:42 107 05/09/20 03:30 89 14 35 05/09/20 01:14 113 17 35 05/09/20 00:00 Mechanical Ventilator 05/09/20 00:00 98.2 108 18 103/76 (85) 100 05/08/20 23:33 133 05/08/20 23:25 110 16 35 05/08/20 21:07 102 12 35 05/08/20 20:00 99.7 79 14 91/51 (64) 100 05/08/20 20:00 Mechanical Ventilator 05/08/20 20:00 35 05/08/20 19:22 82 05/08/20 19:20 89 17 35 05/08/20 17:21 82 15 35 05/08/20 16:00 92 05/08/20 16:00 35 05/08/20 15:57 105 16 97/48 (64) 100 05/08/20 15:51 97.7 79 15 70/34 (46) 100 05/08/20 14:56 128 16 100 Mechanical Ventilator 35 05/08/20 14:56 128 16 35 05/08/20 14:33 Mechanical Ventilator Intake and Output 05/08/20 05/09/20 19:00 07:00 Intake Total 560 ml 741.6 ml Output Total 101 ml 600 ml Balance 459 ml 141.6 ml Intake Free Water 20 ml IV Total 60 ml 721.6 ml Blood Product 500 ml Output Urine Total 101 ml 600 ml # Voids 100 # Bowel Movements 2 Laboratory Tests Test 05/08/20 19:45 05/09/20 03:23 Troponin I 2.111 ng/mL (0.000-0.056) 1.928 ng/mL (0.000-0.056) White Blood Count 8.0 K/UL (4.8-10.8) Red Blood Count 2.92 M/UL (4.20-5.40) L Hemoglobin 8.6 G/DL (12.0-16.0) #L Hematocrit 25.5 % (37.0-47.0) #L Mean Corpuscular Volume 87 FL (80-99) Mean Corpuscular Hemoglobin 29.4 PG (27.0-31.0) Mean Corpuscular Hemoglobin Concent 33.6 G/DL (32.0-36.0) Red Cell Distribution Width 12.5 % (11.6-14.8) Platelet Count 141 K/UL (150-450) L Mean Platelet Volume 8.0 FL (6.5-10.1) Neutrophils (%) (Auto) % (45.0-75.0) Lymphocytes (%) (Auto) % (20.0-45.0) Monocytes (%) (Auto) % (1.0-10.0) Eosinophils (%) (Auto) % (0.0-3.0) Basophils (%) (Auto) % (0.0-2.0) Reticulocyte Count 1.8 % (0.5-2.0) Sodium Level 130 MMOL/L (136-145) L Potassium Level 3.1 MMOL/L (3.5-5.1) L Chloride Level 92 MMOL/L (98-107) L Carbon Dioxide Level 31 MMOL/L (21-32) Anion Gap 7 mmol/L (5-15) Blood Urea Nitrogen 103 mg/dL (7-18) H Creatinine 1.5 MG/DL (0.55-1.30) H Estimat Glomerular Filtration Rate 32.9 mL/min (>60) Glucose Level 128 MG/DL (74-106) H Uric Acid 9.8 MG/DL (2.6-7.2) H Calcium Level 6.8 MG/DL (8.5-10.1) L Phosphorus Level 4.5 MG/DL (2.5-4.9) Magnesium Level 2.2 MG/DL (1.8-2.4) Iron Level 23 ug/dL (50-175) L Total Iron Binding Capacity 115 ug/dL (250-450) L Percent Iron Saturation 20 % (15-50) Unsaturated Iron Binding 92 ug/dL (112-346) L Ferritin 1338 NG/ML (8-388) H Total Bilirubin 0.6 MG/DL (0.2-1.0) Aspartate Amino Transf (AST/SGOT) 57 U/L (15-37) H Alanine Aminotransferase (ALT/SGPT) 45 U/L (12-78) Alkaline Phosphatase 92 U/L (46-116) Lactate Dehydrogenase 462 U/L (81-234) H C-Reactive Protein, Quantitative 9.9 mg/dL (0.00-0.90) H Pro-B-Type Natriuretic Peptide 29769 pg/mL (0-125) H Total Protein 4.7 G/DL (6.4-8.2) L Albumin 1.7 G/DL (3.4-5.0) L Globulin 3.0 g/dL Albumin/Globulin Ratio 0.6 (1.0-2.7) L Folate 15.5 NG/ML (8.6-58.9) Thyroid Stimulating Hormone (TSH) 1.954 uiU/mL (0.358-3.740) Cortisol AM Sample Pending Microbiology Date/Time Source Procedure Growth Status 05/09/20 09:05 Nasopharynx SARS-CoV-2 RdRp Gene Assay - Final Complete Height (Feet): 5 Height (Inches): 3.00 Weight (Pounds): 139 Medications Current Medications Medications (Trade) Dose Ordered Sig/Sherie Route PRN Reason Start Time Stop Time Status Last Admin Dose Admin Dextrose/Sodium Chloride 1,000 ml @ 100 mls/hr Q10H IV 05/08/20 16:00 06/07/20 15:59 05/09/20 02:47 Docusate Sodium (Colace) 100 mg TWICE A DAY NG 05/09/20 18:00 06/08/20 17:59 Pantoprazole (Protonix) 40 mg EVERY 12 HOURS IVP 05/08/20 21:00 06/07/20 20:59 05/09/20 09:00 Piperacillin Sod/ Tazobactam Sod 3.375 gm/Sodium Chloride 110 ml @ 27.5 mls/hr Q8H IVPB 05/09/20 09:00 05/16/20 08:59 05/09/20 10:24 Polyethylene Glycol (Miralax) 17 gm BEDTIME NG 05/09/20 21:00 06/08/20 20:59 Sucralfate (Carafate) 1 gm FOUR TIMES A DAY GT 05/08/20 18:00 08/06/20 17:59 05/09/20 13:19 Assessment/Plan Problem List: (1) Sepsis ICD Codes: A41.9 - Sepsis, unspecified organism SNOMED: 62303896 (2) Nosocomial pneumonia ICD Codes: J18.9 - Pneumonia, unspecified organism; Y95 - Nosocomial condition SNOMED: 355587684 (3) Hyponatremia ICD Codes: E87.1 - Hypo-osmolality and hyponatremia SNOMED: 37117040 (4) UTI (urinary tract infection) ICD Codes: N39.0 - Urinary tract infection, site not specified SNOMED: 88753004 (5) Hypotension ICD Codes: I95.9 - Hypotension, unspecified SNOMED: 92421842 (6) Chronic respiratory failure Assessment & Plan: 89F ill appearing trach on vent trach evaluated and 8f xlt noted sutures in place causing tension and breakdown sutures removed at bedside trach stoma evaluated and with breakdown. dressings applied trach in place and functional cont vent support will monitor and follow with recs thank you ICD Codes: J96.10 - Chronic respiratory failure, unspecified whether with hypoxia or hypercapnia SNOMED: 62180193 (7) Anemia ICD Codes: D64.9 - Anemia, unspecified SNOMED: 987154430 (8) NSTEMI (non-ST elevated myocardial infarction) ICD Codes: I21.4 - Non-ST elevation (NSTEMI) myocardial infarction SNOMED: 97538382 (9) Feeding by G-tube Assessment & Plan: DAILY ESTIMATED NEEDS: Needs based on wound, critical care 47.5kg abw 25-30 kcals/kg 9463-3084 total kcals 1.25-2 g protein/kg 59-95 g total protein 25-30ml/kcal mL/kg 3845-4685 total fluid mLs NUTRITION DIAGNOSIS: Swallowing difficulty r/t respiratory status as evidenced by pt is trach and peg dep. CURRENT TF: NPO for EGD ENTERAL NUTRITION RECOMMENDATIONS: Osmolite 1.2 goal of 45ml/hr x24 hrs + Prosource 1 pack daily to provide 1080ml, 1296 kcal, 60g + 11g pro, 886ml free H2O - As medically able, start Osmolite low fiber TF @low rate 25ml/hr for 6 hrs. - Advance as tolerated 10ml/hr q4-6 hrs to goal - Flush per MD/ HOB over 30 degrees - Add Prosource 1 pack daily to better meet est pro needs. ADDITIONAL RECOMMENDATIONS: 1) F/up w/ WC eval, add GOLDIE BID w/ TF order 2) Per SNF : 4'8" (56 inches) and 142 lbs/64.55kg 3) Monitor renal function, lytes; need for renal TF formula 4) Monitor BG and need for carb control formula -> rec accuchecks + niss ICD Codes: Z93.1 - Gastrostomy status SNOMED: 226014544, 904316175, 765447821 (10) HIRO (acute kidney injury) ICD Codes: N17.9 - Acute kidney failure, unspecified SNOMED: 80853517, 1574627 (11) Chronic vegetative state ICD Codes: R40.3 - Persistent vegetative state SNOMED: 03902327 (12) ICH (intracerebral hemorrhage) ICD Codes: I61.9 - Nontraumatic intracerebral hemorrhage, unspecified SNOMED: [id number] Vikcey Galvez May 09, 2020 14:38
--- NOTE | 2020-05-09 15:24 | NUR ---
NURSE NOTES: Dr. Panchal made aware patient continuous diarrhea, smelly. C. diff and OB stool collected. Per MD discontinue laxatives. MD made aware per Dr. Georgina kelly for EGD. Dr. Panchal made aware of Cardiology stand point.
[2020-05-09 16:00] VITALS: BP 119/62
--- NOTE | 2020-05-09 16:03 | NUR ---
CASE MANAGEMENT: REVIEW 89 YEAR OLD FEMALE BIBA [facility] CC: ABNORMAL LABS SI: ANEMIA . HIRO . PNA T 96.4 HR 59 RR 22 BP 82/60 SAT 99% MECH VENT FIO2 35 H/H 6.0/18.3 NA 125 BUN 112 CR 1.8 TROP 3.205 IS: NS IVF BOLUS X1 ZOSYN IV X1 ALBUMIN IV X1 KCl 10MEQ IV X1 TRANSFUSE PRBC 2 UNITS PATIENT ADMITTED TO STEP DOWN UNIT 05/08/2020 DCP: PATIENT IS FROM [facility]
--- NOTE | 2020-05-09 16:03 | Cardiac Electrophysiology PN ---
Assessment/Plan Assessment/Plan 1. Non-ST elevation myocardial infarction with troponin of 3.2, down to 2 and 1.9. Due to demand ischemia in view hemoglobin of only 6 as well as renal failure. Her EKG shows sinus rhythm with nonspecific ST-T wave abnormality and no ST elevation. 2. Volume overload. BNP of 19,000 as well as 4+ edema. However, the patient is likely intravascularly depleted as her BUN is 112 and creatinine 1.8. Improved to 103/1.5. Further evaluation by Dr. Minor. 3. Severe hyponatremia, sodium 125. 4. Septic shock with lactic acidosis and Hb 6. Got PRBC and is on IV antibiotic per ID.OK to proceed with EGD in am. 5. 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 6. Dysphagia, status post PEG placement. 7. Acute renal failure. Subjective Subjective Remained in atrial fib in 70s.On 35% Fio2 on Vent via Trach. NPO. Objective Last 24 Hour Vital Signs Date Time Temp Pulse Resp B/P (MAP) Pulse Ox O2 Delivery O2 Flow Rate FiO2 05/09/20 13:35 120 21 35 05/09/20 12:00 97.9 74 18 121/57 (78) 99 05/09/20 12:00 35 05/09/20 12:00 65 05/09/20 12:00 Mechanical Ventilator 05/09/20 11:04 110 20 35 05/09/20 08:49 84 15 35 05/09/20 08:00 85 05/09/20 08:00 35 05/09/20 08:00 Mechanical Ventilator 05/09/20 08:00 98.6 82 18 111/55 (73) 99 05/09/20 07:17 80 13 35 05/09/20 05:22 100 16 35 05/09/20 04:00 35 05/09/20 04:00 Mechanical Ventilator 05/09/20 04:00 98.8 90 18 96/61 (73) 100 05/09/20 03:42 107 05/09/20 03:30 89 14 35 05/09/20 01:14 113 17 35 05/09/20 00:00 Mechanical Ventilator 05/09/20 00:00 98.2 108 18 103/76 (85) 100 05/08/20 23:33 133 05/08/20 23:25 110 16 35 05/08/20 21:07 102 12 35 05/08/20 20:00 99.7 79 14 91/51 (64) 100 05/08/20 20:00 Mechanical Ventilator 05/08/20 20:00 35 05/08/20 19:22 82 05/08/20 19:20 89 17 35 05/08/20 17:21 82 15 35 05/08/20 16:00 92 05/08/20 16:00 35 Intake and Output 05/08/20 05/09/20 19:00 07:00 Intake Total 560 ml 741.6 ml Output Total 101 ml 600 ml Balance 459 ml 141.6 ml Intake Free Water 20 ml IV Total 60 ml 721.6 ml Blood Product 500 ml Output Urine Total 101 ml 600 ml # Voids 100 # Bowel Movements 2 Laboratory Tests Test 05/08/20 19:45 05/09/20 03:23 05/09/20 15:00 Troponin I 2.111 ng/mL (0.000-0.056) 1.928 ng/mL (0.000-0.056) White Blood Count 8.0 K/UL (4.8-10.8) Red Blood Count 2.92 M/UL (4.20-5.40) L Hemoglobin 8.6 G/DL (12.0-16.0) #L Hematocrit 25.5 % (37.0-47.0) #L Mean Corpuscular Volume 87 FL (80-99) Mean Corpuscular Hemoglobin 29.4 PG (27.0-31.0) Mean Corpuscular Hemoglobin Concent 33.6 G/DL (32.0-36.0) Red Cell Distribution Width 12.5 % (11.6-14.8) Platelet Count 141 K/UL (150-450) L Mean Platelet Volume 8.0 FL (6.5-10.1) Neutrophils (%) (Auto) % (45.0-75.0) Lymphocytes (%) (Auto) % (20.0-45.0) Monocytes (%) (Auto) % (1.0-10.0) Eosinophils (%) (Auto) % (0.0-3.0) Basophils (%) (Auto) % (0.0-2.0) Reticulocyte Count 1.8 % (0.5-2.0) Sodium Level 130 MMOL/L (136-145) L Potassium Level 3.1 MMOL/L (3.5-5.1) L Chloride Level 92 MMOL/L (98-107) L Carbon Dioxide Level 31 MMOL/L (21-32) Anion Gap 7 mmol/L (5-15) Blood Urea Nitrogen 103 mg/dL (7-18) H Creatinine 1.5 MG/DL (0.55-1.30) H Estimat Glomerular Filtration Rate 32.9 mL/min (>60) Glucose Level 128 MG/DL (74-106) H Uric Acid 9.8 MG/DL (2.6-7.2) H Calcium Level 6.8 MG/DL (8.5-10.1) L Phosphorus Level 4.5 MG/DL (2.5-4.9) Magnesium Level 2.2 MG/DL (1.8-2.4) Iron Level 23 ug/dL (50-175) L Total Iron Binding Capacity 115 ug/dL (250-450) L Percent Iron Saturation 20 % (15-50) Unsaturated Iron Binding 92 ug/dL (112-346) L Ferritin 1338 NG/ML (8-388) H Total Bilirubin 0.6 MG/DL (0.2-1.0) Aspartate Amino Transf (AST/SGOT) 57 U/L (15-37) H Alanine Aminotransferase (ALT/SGPT) 45 U/L (12-78) Alkaline Phosphatase 92 U/L (46-116) Lactate Dehydrogenase 462 U/L (81-234) H C-Reactive Protein, Quantitative 9.9 mg/dL (0.00-0.90) H Pro-B-Type Natriuretic Peptide 75528 pg/mL (0-125) H Total Protein 4.7 G/DL (6.4-8.2) L Albumin 1.7 G/DL (3.4-5.0) L Globulin 3.0 g/dL Albumin/Globulin Ratio 0.6 (1.0-2.7) L Folate 15.5 NG/ML (8.6-58.9) Thyroid Stimulating Hormone (TSH) 1.954 uiU/mL (0.358-3.740) Cortisol AM Sample Pending Stool Occult Blood Pending Microbiology Date/Time Source Procedure Growth Status 05/08/20 12:00 Blood Blood Culture - Preliminary Resulted 05/09/20 09:05 Nasopharynx SARS-CoV-2 RdRp Gene Assay - Final Complete 05/08/20 10:30 Nasopharynx SARS-CoV-2 RdRp Gene Assay - Final Complete 05/08/20 10:50 Urine,Clean Catch Urine Culture - Preliminary Gram Negative Bacillus 1 Resulted 05/08/20 12:00 Rectum Received Objective HEAD AND NECK: Status post tracheostomy, which is fresh. LUNGS: Coarse rhonchi. CARDIOVASCULAR: Regular S1 and S2 with no gallop. ABDOMEN: Status post G-tube. EXTREMITIES: 3+ pitting edema. Renard Erickson MD May 09, 2020 16:03
--- NOTE | 2020-05-09 16:16 | NUR ---
[facility] [phone] SPOKE TO: ALVARO WAYNE [facility] FULLY DELEGATED NO AUTH ON FILE YET FAX CLINCIALS TO [facility] [phone]
[2020-05-09] MEDS: Docusate 100mg/10ml Liq NG SCH (17:54)
[2020-05-09] MEDS ORDERED: Tubing IV Secondary IV ONE (17:56)
[2020-05-09] MEDS ORDERED: ALBUTEROL SULF8.5 G1 INH (18:14)
[2020-05-09] MEDS ORDERED: PERIDEX15 ML ORAL (18:14)
[2020-05-09] MEDS ORDERED: REGLAN10 MG GT (18:14)
[2020-05-09] MEDS ORDERED: VITAMIN D3125 MCG GT (18:14)
[2020-05-09] MEDS ORDERED: DILTIAZEM HCL90 MG GT (18:14)
[2020-05-09] MEDS ORDERED: ACETAMINOPHEN325 M1 GT (18:14)
--- NOTE | 2020-05-09 19:21 | NUR ---
NURSE HAND-OFF REPORT: Important Events on Shift: Diarrhea, blood culture positive gram positive cocci Patient Status: stable Diet: npo Pending Orders: na Pending Results/Labs: C.diff and OB stool collected Pending MD notification:na Latest Vital Signs: Temperature 98.0 , Pulse 116 , B/P 119 /62 , Respiratory Rate 20 , O2 SAT 99 , Mechanical Ventilator, O2 Flow Rate . Vital Sign Comment: stable EKG Rhythm: Atrial Fibrillation Rhythm change?: N MD Notified?: N - MD Response: Latest Madison Fall Score: 70 Fall Risk: High Risk Safety Measures: Call light Within Reach, Bed Alarm Zone 1, Side Rails Side Rails x3, Bed position Low and Locked. Fall Precautions: Yellow Socks Yellow Gown Patient Fall Education Report given to ROSALINO Nieto.
--- NOTE | 2020-05-09 19:22 | NUR ---
NURSE NOTES: Report received from ROSALINO Hurd with update. Pt episode of fever 100.2 axil at start of shift. Cooling measures and PRN initiated. BP and O2 stat stable. No respiratory or cardiac distress noted. Made aware of episode of diarrhea today. Pending c-diff and OBS results. Pt. resuming NPO until further orders. Per Abdulkadir, made aware of plan for EGD with clearance from cardio; pending hematology. Right femoral TLC stable and intact running D5 1/2 NS @ 100. Bed kept in lowest and locked position. Bed alarm on. Will continue to monitor.
[2020-05-09 20:00] VITALS: BP 100/52
[2020-05-09] MEDS: Acetaminophen 650mg/20.3ml GT PRN (20:38)
[2020-05-09] MEDS ORDERED: Vancomycin 1gm/D5W 275ml IVPB ONE ×2 (21:00)
[2020-05-09] MEDS ORDERED: Miralax 17gm pkt NG SCH (21:00)
--- NOTE | 2020-05-09 21:20 | NUR ---
NURSE NOTES: 99.9 temperature post PRN administration. Pt. HR fluctuating from 34-[address] Kauffman at nurses station with no new orders.
--- NOTE | 2020-05-09 23:00 | NUR ---
NURSE NOTES: Pt. transferred to room 242-2. Temperature 99.0 axil.
[2020-05-10] VITALS: BP 103/57
[2020-05-10] MEDS: Piperacillin/Tazobactam 3.375 GM in NS 110 ML IVPB SCH ×2 (01:39→09:38)
[2020-05-10 04:00] VITALS: BP 101/63
[2020-05-10 05:07] LABS: HEMATOCRIT 23.1 % (37.0-47.0); HEMOGLOBIN 7.7 G/DL (12.0-16.0); MEAN CORPUSCULAR VOLUME 89 FL (80-99); PLATELET COUNT 155 K/UL (150-450); RED BLOOD COUNT 2.61 M/UL (4.20-5.40); RED CELL DISTRIBUTION WIDTH 12.8 % (11.6-14.8); WHITE BLOOD COUNT 6.8 K/UL (4.8-10.8)
[2020-05-10 05:30] LABS: PHOSPHORUS 3.5 MG/DL (2.5-4.9)
[2020-05-10 05:35] LABS: ALANINE AMINOTRANSFERASE 45 U/L (12-78); ALBUMIN 1.9 G/DL (3.4-5.0); ALBUMIN/GLOBULIN RATIO 0.7 (1.0-2.7); ALKALINE PHOSPHATASE 123 U/L (46-116); ANION GAP 6 mmol/L (5-15); ASPARTATE AMINO TRANSFERASE 50 U/L (15-37); BILIRUBIN,TOTAL 0.8 MG/DL (0.2-1.0); BLOOD UREA NITROGEN 83 mg/dL (7-18); CALCIUM 7.1 MG/DL (8.5-10.1); CARBON DIOXIDE 28 MMOL/L (21-32); CHLORIDE 98 MMOL/L (98-107); CREATININE 1.4 MG/DL (0.55-1.30); POTASSIUM 3.2 MMOL/L (3.5-5.1); SODIUM 132 MMOL/L (136-145)
--- NOTE | 2020-05-10 06:41 | General Progress Note ---
Assessment/Plan Assessment/Plan: Covering for Dr. Kauffman Assessment and Recs # Anemia rule out underlying gi bleed --> anemia panel has been ordered, esr, ferritin, tibc, occult --> s/p transfusion prbc 05/08 --> gi service if h/h downtrends --> triple lumen has been placed --> hgb 7.7 # NSTEMI (non-ST elevated myocardial infarction) with trop elevation -> on bb, off asa --> seen by Dr. Erickson --> volume management as per cards/renal --> trop downtrended # HIRO (acute kidney injury) --> cr 1.8-->1.5 # Hyponatremia/Hypokalemoa --> per renal recs # Respiratory failure s/p trach --> consulted pulm # PNA on cxr --> as per id recs # Dysphagia s/p peg # Dvt ppx scds Appreciate technical support consultant care, will follow Subjective Allergies: Coded Allergies: No Known Allergies (Unverified , 05/08/20) All Systems: reviewed and negative except above Subjective 05/10 remains obtunded, dw rn, labs are noted, on vanc/zosyn, mild temp overnight Objective Last 24 Hour Vital Signs Date Time Temp Pulse Resp B/P (MAP) Pulse Ox O2 Delivery O2 Flow Rate FiO2 05/10/20 05:20 94 16 35 05/10/20 04:00 87 05/10/20 04:00 Mechanical Ventilator 05/10/20 04:00 35 05/10/20 03:30 92 16 35 05/10/20 01:30 108 18 35 05/10/20 00:00 99.3 95 19 103/57 (72) 98 05/10/20 00:00 Mechanical Ventilator 05/09/20 23:32 96 05/09/20 23:23 94 16 35 05/09/20 21:08 99.9 05/09/20 21:00 99.9 05/09/20 20:32 58 18 35 05/09/20 20:00 Mechanical Ventilator 05/09/20 20:00 100.1 86 19 100/52 (68) 100 05/09/20 20:00 73 05/09/20 20:00 35 05/09/20 19:30 61 18 35 05/09/20 19:30 100.4 05/09/20 17:00 116 20 35 05/09/20 16:02 108 21 35 05/09/20 16:00 35 05/09/20 16:00 Mechanical Ventilator 05/09/20 16:00 98.0 86 19 119/62 (81) 99 05/09/20 16:00 88 05/09/20 13:35 120 21 35 05/09/20 12:00 97.9 74 18 121/57 (78) 99 05/09/20 12:00 35 05/09/20 12:00 65 05/09/20 12:00 Mechanical Ventilator 05/09/20 11:04 110 20 35 05/09/20 08:49 84 15 35 05/09/20 08:00 85 05/09/20 08:00 35 05/09/20 08:00 Mechanical Ventilator 05/09/20 08:00 98.6 82 18 111/55 (73) 99 05/09/20 07:17 80 13 35 Intake and Output 05/09/20 05/10/20 19:00 07:00 Intake Total 1398.75 ml 1069.399 ml Output Total 600 ml Balance 798.75 ml 1069.399 ml Intake Free Water 120 ml IV Total 1278.75 ml 1069.399 ml Output Urine Total 600 ml # Bowel Movements 4 Laboratory Tests 05/09/20 15:00: Stool Occult Blood [Pending] 05/10/20 02:50: White Blood Count 6.8, Red Blood Count 2.61L, Hemoglobin 7.7L, Hematocrit 23.1L , Mean Corpuscular Volume 89, Mean Corpuscular Hemoglobin 29.6, Mean Corpuscular Hemoglobin Concent 33.4, Red Cell Distribution Width 12.8, Platelet Count 155, Mean Platelet Volume 8.1, Neutrophils (%) (Auto) , Lymphocytes (%) ( Auto) , Monocytes (%) (Auto) , Eosinophils (%) (Auto) , Basophils (%) (Auto) , Sodium Level 132L, Potassium Level 3.2L, Chloride Level 98, Carbon Dioxide Level 28, Anion Gap 6, Blood Urea Nitrogen 83H, Creatinine 1.4H, Estimat Glomerular Filtration Rate 35.5, Glucose Level 118H, Calcium Level 7.1L, Phosphorus Level 3.5, Magnesium Level 2.2, Total Bilirubin 0.8, Aspartate Amino Transf (AST/SGOT) 50H, Alanine Aminotransferase (ALT/SGPT) 45, Alkaline Phosphatase 123H, C-Reactive Protein, Quantitative 6.7H, Pro-B-Type Natriuretic Peptide 14614S, Total Protein 4.7L, Albumin 1.9L, Globulin 2.8, Albumin/ Globulin Ratio 0.7L, Vitamin B12 Level 1289H Height (Feet): 5 Height (Inches): 3.00 Weight (Pounds): 137 Objective PE General: Obtunded, no spontaneous movement. No obvious distress HEENT: NC/AT. Neck: Tracheostomy appears appropriately placed Cardiovascular: RRR. S1 and S2 normal. No murmur appreciated Resp: Normal work of breathing. No cough Abdomen: Abdomen is soft, nondistended. Gastrostomy tube appears in appropriate position without surrounding signs of infection or trauma. Skin: Intact. No abrasions, laceration or rash over the exposed skin MSK: Normal tone and bulk. Neuro: Obtunded Willy Mustafa MD May 10, 2020 06:41
--- NOTE | 2020-05-10 07:15 | NUR ---
NURSE NOTES: Received report from ROSALINO Salomon. Pt in bed resting. Responsive to tactile stimuli. IV site in right femoral TLC line running D5 NS@100ml/hr patent. Side railxx3 up for safety. G-tube site clean and intact and feeding on hold due to possible EGD today as ordered. On CAILIN mattress. Call light within easy reach. Will continue plan of care.
--- NOTE | 2020-05-10 07:15 | NUR ---
NURSE HAND-OFF REPORT: Important Events on Shift: No changes Patient Status: Stable Diet: NPO Pending Orders: Pending Results/Labs: Pending MD notification: Latest Vital Signs: Temperature 97.9 , Pulse 94 , B/P 100 /77 , Respiratory Rate 19 , O2 SAT 99 , Mechanical Ventilator, O2 Flow Rate . Vital Sign Comment: EKG Rhythm: Atrial Fibrillation Rhythm change?: N MD Notified?: N - MD Response: Latest Madison Fall Score: 70 Fall Risk: High Risk Safety Measures: Call light Within Reach, Bed Alarm Zone 1, Side Rails Side Rails x3, Bed position Low and Locked. Fall Precautions: Yellow Socks Yellow Gown Patient Fall Education Report given to ROSALINO Ny.
--- NOTE | 2020-05-10 07:19 | Infectious Diseases Prog Note ---
Assessment/Plan 89yo F with: Hypotension in setting of anemia to 6.0 Normal WBC Afebrile, Tmax 99.7 --> Febrile to 100.4 GPC Bacteremia 05/08 BCx 1/2 +GPCs MRSA nares p Possible UTI 05/08 UA+, UCx >100k ESBL Kleb pna (R-levo @1) Possible pna, vent dependent via trach 05/08 CXR: Patchy opacities throughout the lungs which may represent pulmonary edema versus infectious/inflammatory process. Possible small pleural effusions. 05/08 COVID rapid Ag neg x1 05/09 COVID rapid Ag neg x1 Volume OL? 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 [facility] will continue to follow. Subjective Allergies: Coded Allergies: No Known Allergies (Unverified , 05/08/20) Febrile to 100.4 at 4pm yesterday, AF since On vent, FiO2 35% satting 99% NAD Objective Last 24 Hour Vital Signs Date Time Temp Pulse Resp B/P (MAP) Pulse Ox O2 Delivery O2 Flow Rate FiO2 05/10/20 06:35 116 20 35 05/10/20 05:20 94 16 35 05/10/20 04:00 87 05/10/20 04:00 Mechanical Ventilator 05/10/20 04:00 35 05/10/20 03:30 92 16 35 05/10/20 01:30 108 18 35 05/10/20 00:00 99.3 95 19 103/57 (72) 98 05/10/20 00:00 Mechanical Ventilator 05/09/20 23:32 96 05/09/20 23:23 94 16 35 05/09/20 21:08 99.9 05/09/20 21:00 99.9 05/09/20 20:32 58 18 35 05/09/20 20:00 Mechanical Ventilator 05/09/20 20:00 100.1 86 19 100/52 (68) 100 05/09/20 20:00 73 05/09/20 20:00 35 05/09/20 19:30 61 18 35 05/09/20 19:30 100.4 05/09/20 17:00 116 20 35 05/09/20 16:02 108 21 35 05/09/20 16:00 35 05/09/20 16:00 Mechanical Ventilator 05/09/20 16:00 98.0 86 19 119/62 (81) 99 05/09/20 16:00 88 05/09/20 13:35 120 21 35 05/09/20 12:00 97.9 74 18 121/57 (78) 99 05/09/20 12:00 35 05/09/20 12:00 65 05/09/20 12:00 Mechanical Ventilator 05/09/20 11:04 110 20 35 05/09/20 08:49 84 15 35 05/09/20 08:00 85 05/09/20 08:00 35 05/09/20 08:00 Mechanical Ventilator 05/09/20 08:00 98.6 82 18 111/55 (73) 99 Height (Feet): 5 Height (Inches): 3.00 Weight (Pounds): 137 Gen: Older woman, on vent, NAD HEENT: Trach CV: RRR Pulm: CTAB on vent Abd: Soft, NTND, +PEG Neuro: Non-responsive Lines: R fem CVC Microbiology Date/Time Source Procedure Growth Status 05/08/20 12:15 Blood Blood Culture - Preliminary NO GROWTH AFTER 24 HOURS Resulted 05/08/20 12:00 Blood Blood Culture - Preliminary Gram Positive Cocci Resulted 05/09/20 09:05 Nasopharynx SARS-CoV-2 RdRp Gene Assay - Final Complete 05/08/20 10:30 Nasopharynx SARS-CoV-2 RdRp Gene Assay - Final Complete 05/08/20 10:50 Urine,Clean Catch Urine Culture - Preliminary Gram Negative Bacillus 1 Resulted 05/08/20 12:00 Rectum Received Laboratory Tests Test 05/09/20 15:00 8/18/20 02:50 Stool Occult Blood Pending White Blood Count 6.8 K/UL (4.8-10.8) Red Blood Count 2.61 M/UL (4.20-5.40) L Hemoglobin 7.7 G/DL (12.0-16.0) L Hematocrit 23.1 % (37.0-47.0) L Mean Corpuscular Volume 89 FL (80-99) Mean Corpuscular Hemoglobin 29.6 PG (27.0-31.0) Mean Corpuscular Hemoglobin Concent 33.4 G/DL (32.0-36.0) Red Cell Distribution Width 12.8 % (11.6-14.8) Platelet Count 155 K/UL (150-450) Mean Platelet Volume 8.1 FL (6.5-10.1) Neutrophils (%) (Auto) % (45.0-75.0) Lymphocytes (%) (Auto) % (20.0-45.0) Monocytes (%) (Auto) % (1.0-10.0) Eosinophils (%) (Auto) % (0.0-3.0) Basophils (%) (Auto) % (0.0-2.0) Sodium Level 132 MMOL/L (136-145) L Potassium Level 3.2 MMOL/L (3.5-5.1) L Chloride Level 98 MMOL/L (98-107) Carbon Dioxide Level 28 MMOL/L (21-32) Anion Gap 6 mmol/L (5-15) Blood Urea Nitrogen 83 mg/dL (7-18) H Creatinine 1.4 MG/DL (0.55-1.30) H Estimat Glomerular Filtration Rate 35.5 mL/min (>60) Glucose Level 118 MG/DL (74-106) H Calcium Level 7.1 MG/DL (8.5-10.1) L Phosphorus Level 3.5 MG/DL (2.5-4.9) Magnesium Level 2.2 MG/DL (1.8-2.4) Total Bilirubin 0.8 MG/DL (0.2-1.0) Aspartate Amino Transf (AST/SGOT) 50 U/L (15-37) H Alanine Aminotransferase (ALT/SGPT) 45 U/L (12-78) Alkaline Phosphatase 123 U/L (46-116) H C-Reactive Protein, Quantitative 6.7 mg/dL (0.00-0.90) H Pro-B-Type Natriuretic Peptide 86317 pg/mL (0-125) H Total Protein 4.7 G/DL (6.4-8.2) L Albumin 1.9 G/DL (3.4-5.0) L Globulin 2.8 g/dL Albumin/Globulin Ratio 0.7 (1.0-2.7) L Vitamin B12 Level 1289 PG/ML (193-986) H Current Medications Medications (Trade) Dose Ordered Sig/Sherie Route PRN Reason Start Time Stop Time Status Last Admin Dose Admin Acetaminophen (Tylenol) 650 mg Q6H PRN GT For Headache 05/09/20 20:30 06/08/20 20:29 05/09/20 20:38 Dextrose/Sodium Chloride 1,000 ml @ 100 mls/hr Q10H IV 05/08/20 16:00 06/07/20 15:59 05/09/20 20:38 Docusate Sodium (Colace) 100 mg TWICE A DAY NG 05/09/20 18:00 06/08/20 17:59 Pantoprazole (Protonix) 40 mg EVERY 12 HOURS IVP 05/08/20 21:00 06/07/20 20:59 05/09/20 20:38 Piperacillin Sod/ Tazobactam Sod 3.375 gm/Sodium Chloride 110 ml @ 27.5 mls/hr Q8H IVPB 05/09/20 09:00 05/16/20 08:59 05/10/20 01:39 Potassium Chloride 100 ml @ 100 mls/hr Q1H IVPB 05/10/20 07:00 05/10/20 10:59 Sucralfate (Carafate) 1 gm FOUR TIMES A DAY GT 05/08/20 18:00 08/06/20 17:59 05/09/20 20:38 Vancomycin HCl (Vanco pharmacy to dose) 1 ea DAILY PRN MISC Per rx protocol 05/09/20 16:45 06/08/20 16:44 Vancomycin HCl 500 mg/Dextrose 110 ml @ 110 mls/hr Q24H IVPB 05/10/20 21:00 05/15/20 20:59 Ashley Snyder M.D. May 10, 2020 07:19
[2020-05-10] MEDS: D5NS 1,000 ML IV SCH ×2 (07:45→17:49)
[2020-05-10 07:47] VITALS: BP 100/77
[2020-05-10] MEDS: Docusate 100mg/10ml Liq NG SCH ×3 (09:00→17:49)
--- NOTE | 2020-05-10 09:17 | General Progress Note ---
Assessment/Plan Problem List: (1) Feeding by G-tube ICD Codes: Z93.1 - Gastrostomy status SNOMED: 462984947, 646487379, 979001436 (2) Chronic respiratory failure ICD Codes: J96.10 - Chronic respiratory failure, unspecified whether with hypoxia or hypercapnia SNOMED: 55877525 (3) Hyponatremia ICD Codes: E87.1 - Hypo-osmolality and hyponatremia SNOMED: 46783573 (4) UTI (urinary tract infection) ICD Codes: N39.0 - Urinary tract infection, site not specified SNOMED: 44498490 (5) Hypotension ICD Codes: I95.9 - Hypotension, unspecified SNOMED: 97704712 (6) NSTEMI (non-ST elevated myocardial infarction) ICD Codes: I21.4 - Non-ST elevation (NSTEMI) myocardial infarction SNOMED: 15119703 (7) Anemia ICD Codes: D64.9 - Anemia, unspecified SNOMED: 028275432 (8) HIRO (acute kidney injury) ICD Codes: N17.9 - Acute kidney failure, unspecified SNOMED: 13765328, 5836093 Assessment/Plan: ppi GTF abx per ID monitor H&H plan EGD if cleared by cardiology stool ob Subjective ROS Limited/Unobtainable: No Allergies: Coded Allergies: No Known Allergies (Unverified , 05/08/20) Objective Last 24 Hour Vital Signs Date Time Temp Pulse Resp B/P (MAP) Pulse Ox O2 Delivery O2 Flow Rate FiO2 05/10/20 07:47 97.9 94 19 100/77 (85) 99 05/10/20 06:35 116 20 35 05/10/20 05:20 94 16 35 05/10/20 04:00 98.9 80 19 101/63 (76) 100 05/10/20 04:00 87 05/10/20 04:00 Mechanical Ventilator 05/10/20 04:00 35 05/10/20 03:30 92 16 35 05/10/20 01:30 108 18 35 05/10/20 00:00 99.3 95 19 103/57 (72) 98 05/10/20 00:00 Mechanical Ventilator 05/09/20 23:32 96 05/09/20 23:23 94 16 35 05/09/20 21:08 99.9 05/09/20 21:00 99.9 05/09/20 20:32 58 18 35 05/09/20 20:00 Mechanical Ventilator 05/09/20 20:00 100.1 86 19 100/52 (68) 100 05/09/20 20:00 73 05/09/20 20:00 35 05/09/20 19:30 61 18 35 05/09/20 19:30 100.4 05/09/20 17:00 116 20 35 05/09/20 16:02 108 21 35 05/09/20 16:00 35 05/09/20 16:00 Mechanical Ventilator 05/09/20 16:00 98.0 86 19 119/62 (81) 99 05/09/20 16:00 88 05/09/20 13:35 120 21 35 05/09/20 12:00 97.9 74 18 121/57 (78) 99 05/09/20 12:00 35 05/09/20 12:00 65 05/09/20 12:00 Mechanical Ventilator 05/09/20 11:04 110 20 35 Intake and Output 05/09/20 05/10/20 19:00 07:00 Intake Total 1398.75 ml 1069.399 ml Output Total 600 ml 600 ml Balance 798.75 ml 469.399 ml Intake Free Water 120 ml IV Total 1278.75 ml 1069.399 ml Output Urine Total 600 ml 600 ml # Bowel Movements 4 Laboratory Tests 05/09/20 15:00: Stool Occult Blood [Pending] 05/10/20 02:50: White Blood Count 6.8, Red Blood Count 2.61L, Hemoglobin 7.7L, Hematocrit 23.1L , Mean Corpuscular Volume 89, Mean Corpuscular Hemoglobin 29.6, Mean Corpuscular Hemoglobin Concent 33.4, Red Cell Distribution Width 12.8, Platelet Count 155, Mean Platelet Volume 8.1, Neutrophils (%) (Auto) , Lymphocytes (%) ( Auto) , Monocytes (%) (Auto) , Eosinophils (%) (Auto) , Basophils (%) (Auto) , Sodium Level 132L, Potassium Level 3.2L, Chloride Level 98, Carbon Dioxide Level 28, Anion Gap 6, Blood Urea Nitrogen 83H, Creatinine 1.4H, Estimat Glomerular Filtration Rate 35.5, Glucose Level 118H, Calcium Level 7.1L, Phosphorus Level 3.5, Magnesium Level 2.2, Total Bilirubin 0.8, Aspartate Amino Transf (AST/SGOT) 50H, Alanine Aminotransferase (ALT/SGPT) 45, Alkaline Phosphatase 123H, C-Reactive Protein, Quantitative 6.7H, Pro-B-Type Natriuretic Peptide 02355G, Total Protein 4.7L, Albumin 1.9L, Globulin 2.8, Albumin/ Globulin Ratio 0.7L, Vitamin B12 Level 1289H Height (Feet): 5 Height (Inches): 3.00 Weight (Pounds): 137 General Appearance: no apparent distress EENT: normal ENT inspection Neck: supple Cardiovascular: normal rate Respiratory/Chest: decreased breath sounds Abdomen: normal bowel sounds, non tender, soft Extremities: non-tender Jaylon Panchal MD May 10, 2020 09:17
[2020-05-10] MEDS: Sucralfate 1gm tab GT SCH ×4 (09:28→20:24)
[2020-05-10] MEDS: Pantoprazole Inj IVP SCH ×2 (09:28→20:24)
--- NOTE | 2020-05-10 10:30 | NUR ---
NURSE NOTES: Dr. Snyder is present at the bedside. Made Dr. Snyder aware of VRE rectume, ESBL urine. New IV Abx ordered and orders carried out. TLC line ordered to be removed once peripheral lines available.
--- NOTE | 2020-05-10 10:32 | NUR ---
RADIOLOGY DEPT., CHEST X-RAY DONE.-P.DYE
--- NOTE | 2020-05-10 11:32 | Pulmonolgy Critical Care Note ---
Critical Care - Asmt/Plan Problems: (1) ICH (intracerebral hemorrhage) (2) Chronic vegetative state (3) Feeding by G-tube (4) Chronic respiratory failure (5) Hyponatremia Respiratory: monitor respiratory rate, adjust FIO2, CXR Cardiac: continue pressors, continue to monitor HR/BP Renal: F/U I&O, keep IV fluid, check electrolytes Infectious Disease: check cultures, continue antibiotics Gastrointestinal: continue feedings/current rate Endocrine: monitor blood sugar, check TSH, continue sliding scale insulin Hematologic: transfuse if hgb<8.5 Neurologic: PRN Ativan, keep patient comfortable Affect: PRN ativan Prophylaxis: Protonix Time Spent (Minutes): 40 Notes Reviewed: process control technician, cardio Discussed with: case resource managersenior assistant manager - Objective Last 24 Hour Vital Signs Date Time Temp Pulse Resp B/P (MAP) Pulse Ox O2 Delivery O2 Flow Rate FiO2 05/10/20 10:30 120 19 35 05/10/20 09:00 94 17 35 05/10/20 07:47 97.9 94 19 100/77 (85) 99 05/10/20 06:35 116 20 35 05/10/20 05:20 94 16 35 05/10/20 04:00 98.9 80 19 101/63 (76) 100 05/10/20 04:00 87 05/10/20 04:00 Mechanical Ventilator 05/10/20 04:00 35 05/10/20 03:30 92 16 35 05/10/20 01:30 108 18 35 05/10/20 00:00 99.3 95 19 103/57 (72) 98 05/10/20 00:00 Mechanical Ventilator 05/09/20 23:32 96 05/09/20 23:23 94 16 35 05/09/20 21:08 99.9 05/09/20 21:00 99.9 05/09/20 20:32 58 18 35 05/09/20 20:00 Mechanical Ventilator 05/09/20 20:00 100.1 86 19 100/52 (68) 100 05/09/20 20:00 73 05/09/20 20:00 35 05/09/20 19:30 61 18 35 05/09/20 19:30 100.4 05/09/20 17:00 116 20 35 05/09/20 16:02 108 21 35 05/09/20 16:00 35 05/09/20 16:00 Mechanical Ventilator 05/09/20 16:00 98.0 86 19 119/62 (81) 99 05/09/20 16:00 88 05/09/20 13:35 120 21 35 05/09/20 12:00 97.9 74 18 121/57 (78) 99 05/09/20 12:00 35 05/09/20 12:00 65 05/09/20 12:00 Mechanical Ventilator Status: awake, sedated Condition: critical HEENT: atraumatic, normocephalic Neck: full ROM Lungs: clear Heart: HR/BP stable Abdomen: soft, active bowel sounds, feeding tube Extremities: no C/C/E, edema Micro: Microbiology Date/Time Source Procedure Growth Status 05/08/20 12:15 Blood Blood Culture - Preliminary NO GROWTH AFTER 24 HOURS Resulted 05/08/20 12:00 Blood Blood Culture - Preliminary Gram Positive Cocci Resulted 05/09/20 09:05 Nasopharynx SARS-CoV-2 RdRp Gene Assay - Final Complete 05/08/20 12:00 Nasal Nares MRSA Culture - Final NO METHICILLIN RESISTANT STAPH AUREUS... Complete 05/08/20 10:30 Nasopharynx SARS-CoV-2 RdRp Gene Assay - Final Complete 05/09/20 15:00 Stool Clostridium difficile Toxin Assay - Final Complete 05/08/20 10:50 Urine,Clean Catch Urine Culture - Final Klebsiella Pneumoniae Esbl Complete 05/08/20 12:00 Rectum Received Critical Care - Subjective ROS Limited/Unobtainable: Yes EKG Rhythm: Sinus Rhythm FI02: 35 Vent Support Breath Rate: 10 Vent Support Mode: AC Vent Tidal Volume: 400 Sputum Amount: Small PEEP: 5.0 PIP: 29 I&O: Intake and Output 05/09/20 05/10/20 19:00 07:00 Intake Total 1398.75 ml 1069.399 ml Output Total 600 ml 600 ml Balance 798.75 ml 469.399 ml Intake Free Water 120 ml IV Total 1278.75 ml 1069.399 ml Output Urine Total 600 ml 600 ml # Bowel Movements 4 Labs: Laboratory Tests Test 05/09/20 15:00 05/10/20 02:50 Stool Occult Blood Pending White Blood Count 6.8 K/UL (4.8-10.8) Red Blood Count 2.61 M/UL (4.20-5.40) L Hemoglobin 7.7 G/DL (12.0-16.0) L Hematocrit 23.1 % (37.0-47.0) L Mean Corpuscular Volume 89 FL (80-99) Mean Corpuscular Hemoglobin 29.6 PG (27.0-31.0) Mean Corpuscular Hemoglobin Concent 33.4 G/DL (32.0-36.0) Red Cell Distribution Width 12.8 % (11.6-14.8) Platelet Count 155 K/UL (150-450) Mean Platelet Volume 8.1 FL (6.5-10.1) Neutrophils (%) (Auto) % (45.0-75.0) Lymphocytes (%) (Auto) % (20.0-45.0) Monocytes (%) (Auto) % (1.0-10.0) Eosinophils (%) (Auto) % (0.0-3.0) Basophils (%) (Auto) % (0.0-2.0) Sodium Level 132 MMOL/L (136-145) L Potassium Level 3.2 MMOL/L (3.5-5.1) L Chloride Level 98 MMOL/L (98-107) Carbon Dioxide Level 28 MMOL/L (21-32) Anion Gap 6 mmol/L (5-15) Blood Urea Nitrogen 83 mg/dL (7-18) H Creatinine 1.4 MG/DL (0.55-1.30) H Estimat Glomerular Filtration Rate 35.5 mL/min (>60) Glucose Level 118 MG/DL (74-106) H Calcium Level 7.1 MG/DL (8.5-10.1) L Phosphorus Level 3.5 MG/DL (2.5-4.9) Magnesium Level 2.2 MG/DL (1.8-2.4) Total Bilirubin 0.8 MG/DL (0.2-1.0) Aspartate Amino Transf (AST/SGOT) 50 U/L (15-37) H Alanine Aminotransferase (ALT/SGPT) 45 U/L (12-78) Alkaline Phosphatase 123 U/L (46-116) H C-Reactive Protein, Quantitative 6.7 mg/dL (0.00-0.90) H Pro-B-Type Natriuretic Peptide 96748 pg/mL (0-125) H Total Protein 4.7 G/DL (6.4-8.2) L Albumin 1.9 G/DL (3.4-5.0) L Globulin 2.8 g/dL Albumin/Globulin Ratio 0.7 (1.0-2.7) L Vitamin B12 Level 1289 PG/ML (193-986) H Chadwick Parry MD May 10, 2020 11:32
--- NOTE | 2020-05-10 11:45 | Progress Note ---
DATE: 05/09/2020 HISTORY OF PRESENT ILLNESS: For the purpose of this report, the medical chart has been reviewed in detail and the patient had a report of multiple specialists have been seen and assessed. The patient has been reviewed and the case has been discussed with the treatment team. The patient is an 89-year-old lady, who is a resident of an extended care facility only for a few days with multiple chronic medical syndrome, was transferred to [facility] here because of hypotension and significant drop in hemoglobin and hematocrit. Assessment in the emergency room, I believe the patient became hypotensive and nonresponsive and initially was seen by a supervisor garage because of hypotension and tachycardia. Review of her laboratory tests, hemoglobin was 6 and hematocrit of 18.3. She has been seen by and chest x-ray suggested pulmonary edema. She has been seen also by passenger car conductor, manager security and safety, and Gastroenterology as well as Infectious Disease especially. Due to her drop in hemoglobin and hematocrit, she was scheduled to undergo upper GI endoscopy, stool for iron, total iron-binding capacity, and ferritin were assessed. PHYSICAL EXAMINATION: VITAL SIGNS: Blood pressure is 100/52, pulse is 73, respirations are 19, temperature is 100.1. HEENT: Eyes were normal. ENT, mucous membranes were dry and intact. NECK: Supple with no JVD without lymph nodes. Tracheostomy site is clean. LUNGS: There are bilateral rhonchi at both bases. HEART: Normal sounds with regular beats. There is bradycardia at rest to 39. ABDOMEN: Soft, nontender with normal bowel sounds. Gastrostomy site is clean. EXTREMITIES: Warm without cyanosis, clubbing, or edema. LABORATORY AND DIAGNOSTIC DATA: Hemoglobin is 8.6, hematocrit 25.5 with MCV of 87, WBC of 8.0, and platelets is 141. Her BUN and creatinine is 103 and 1.5 respectively. Her sodium is 130, potassium 3.1, chloride 92, CO2 is 31, uric acid is 9.8. Her calcium is 6.8, magnesium is 2.2, and phosphorus is 4.5. Her iron saturation is 20. Her iron is 23 and total iron-binding capacity is 115. Her ferritin is 1338. LDH was 462. Troponin is 1.9. CRP is 9.9. ProBNP is 16,470. Today chest x-ray showed cardiomegaly. There is bilateral increased interstitial marking. There is bilateral pleural effusion, left greater than right. These findings are unchanged since yesterday. Potassium was corrected. She continued to have elevation. She is currently on vancomycin 1 g IV piggyback q.24 h. She is on piperacillin/tazobactam 3.375 g IV piggyback q.8 h. She is on pantoprazole 40 mg IV piggyback q.12 h., sucralfate 1 g IV piggyback via G-tube q.6 h. She received normal saline at 100 mL per hour. Repeat laboratory tests will be done in the a.m. Anita Kauffman M.D. DR: MAURO JOB#: [id number] CC:
[2020-05-10 12:00] VITALS: BP 115/70
[2020-05-10] MEDS ORDERED: Meropenem 1 GM in NS 55 ML IVPB SCH (12:00)
--- NOTE | 2020-05-10 13:02 | NUR ---
*IMM NOTE* Signature of patient or traveling representative obtained Y/N? : Date/Time: Comments: S/W PATIENTS SON MJ PAUL,IN REGAURDS TO PATIENTS RIGHT IMPORATANT MESSAGE FROM MEDICARE. Or If No Computer Applications Engineer, Referred to Jury Consultant:
[2020-05-10] MEDS ORDERED: NS 275ml ONE (13:24)
--- NOTE | 2020-05-10 13:24 | Nephrology Progress Note ---
Assessment/Plan Problem List: (1) HIRO (acute kidney injury) (2) NSTEMI (non-ST elevated myocardial infarction) (3) Anemia (4) Chronic respiratory failure (5) Hypotension (6) Hyponatremia (7) ICH (intracerebral hemorrhage) (8) Sepsis Assessment Acute renal failure, mainly prerenal picture Non-STEMI: Troponin 2.1 Chronic ventilatory dependent respiratory failure, history of intracranial bleed Septic shock with lactic acidosis, possible UTI, possible pneumonia Severe hyponatremia Severe anemia, history of GI bleed Hypertension GERD Plan Hydrate Hold BP medications, blood pressure is low IV Protonix, Carafate Antibiotics per ID Monitor renal parameters and electrolytes Potassium supplement as needed Transfusion as needed Per consultants Subjective ROS Limited/Unobtainable: Yes Objective Objective Last 24 Hour Vital Signs Date Time Temp Pulse Resp B/P (MAP) Pulse Ox O2 Delivery O2 Flow Rate FiO2 05/10/20 12:00 35 05/10/20 10:30 120 19 35 05/10/20 09:00 94 17 35 05/10/20 08:00 35 05/10/20 07:47 97.9 94 19 100/77 (85) 99 05/10/20 06:35 116 20 35 05/10/20 05:20 94 16 35 05/10/20 04:00 98.9 80 19 101/63 (76) 100 05/10/20 04:00 87 05/10/20 04:00 Mechanical Ventilator 05/10/20 04:00 35 05/10/20 03:30 92 16 35 05/10/20 01:30 108 18 35 05/10/20 00:00 99.3 95 19 103/57 (72) 98 05/10/20 00:00 Mechanical Ventilator 05/09/20 23:32 96 05/09/20 23:23 94 16 35 05/09/20 21:08 99.9 05/09/20 21:00 99.9 05/09/20 20:32 58 18 35 05/09/20 20:00 Mechanical Ventilator 05/09/20 20:00 100.1 86 19 100/52 (68) 100 05/09/20 20:00 73 05/09/20 20:00 35 05/09/20 19:30 61 18 35 05/09/20 19:30 100.4 05/09/20 17:00 116 20 35 05/09/20 16:02 108 21 35 05/09/20 16:00 35 05/09/20 16:00 Mechanical Ventilator 05/09/20 16:00 98.0 86 19 119/62 (81) 99 05/09/20 16:00 88 05/09/20 13:35 120 21 35 Intake and Output 05/09/20 05/10/20 19:00 07:00 Intake Total 1398.75 ml 1069.399 ml Output Total 600 ml 600 ml Balance 798.75 ml 469.399 ml Intake Free Water 120 ml IV Total 1278.75 ml 1069.399 ml Output Urine Total 600 ml 600 ml # Bowel Movements 4 Laboratory Tests 05/09/20 15:00: Stool Occult Blood Positive 05/10/20 02:50: White Blood Count 6.8, Red Blood Count 2.61L, Hemoglobin 7.7L, Hematocrit 23.1L , Mean Corpuscular Volume 89, Mean Corpuscular Hemoglobin 29.6, Mean Corpuscular Hemoglobin Concent 33.4, Red Cell Distribution Width 12.8, Platelet Count 155, Mean Platelet Volume 8.1, Neutrophils (%) (Auto) , Lymphocytes (%) ( Auto) , Monocytes (%) (Auto) , Eosinophils (%) (Auto) , Basophils (%) (Auto) , Sodium Level 132L, Potassium Level 3.2L, Chloride Level 98, Carbon Dioxide Level 28, Anion Gap 6, Blood Urea Nitrogen 83H, Creatinine 1.4H, Estimat Glomerular Filtration Rate 35.5, Glucose Level 118H, Calcium Level 7.1L, Phosphorus Level 3.5, Magnesium Level 2.2, Total Bilirubin 0.8, Aspartate Amino Transf (AST/SGOT) 50H, Alanine Aminotransferase (ALT/SGPT) 45, Alkaline Phosphatase 123H, C-Reactive Protein, Quantitative 6.7H, Pro-B-Type Natriuretic Peptide 61740V, Total Protein 4.7L, Albumin 1.9L, Globulin 2.8, Albumin/ Globulin Ratio 0.7L, Vitamin B12 Level 1289H Height (Feet): 5 Height (Inches): 2.00 Weight (Pounds): 164 General Appearance: no apparent distress, lethargic EENT: other - On mechanical ventilation Cardiovascular: tachycardia Respiratory/Chest: decreased breath sounds Abdomen: distended Extremities: moderate edema Dov Minor MD May 10, 2020 13:24
[2020-05-10] MEDS: Meropenem 500mg in NS 55ml IVPB SCH ×2 (13:50→20:30)
--- NOTE | 2020-05-10 14:43 | Surgery Progress Note ---
Surgery Progress Note Subjective Additional Comments h/h noted no active bleeding trach site okay dressings going well Objective Last 24 Hour Vital Signs Date Time Temp Pulse Resp B/P (MAP) Pulse Ox O2 Delivery O2 Flow Rate FiO2 05/10/20 13:20 73 19 35 05/10/20 12:00 98.0 104 19 115/70 (85) 100 05/10/20 12:00 35 05/10/20 10:30 120 19 35 05/10/20 09:00 94 17 35 05/10/20 08:00 35 05/10/20 07:47 97.9 94 19 100/77 (85) 99 05/10/20 06:35 116 20 35 05/10/20 05:20 94 16 35 05/10/20 04:00 98.9 80 19 101/63 (76) 100 05/10/20 04:00 87 05/10/20 04:00 Mechanical Ventilator 05/10/20 04:00 35 05/10/20 03:30 92 16 35 05/10/20 01:30 108 18 35 05/10/20 00:00 99.3 95 19 103/57 (72) 98 05/10/20 00:00 Mechanical Ventilator 05/09/20 23:32 96 05/09/20 23:23 94 16 35 05/09/20 21:08 99.9 05/09/20 21:00 99.9 05/09/20 20:32 58 18 35 05/09/20 20:00 Mechanical Ventilator 05/09/20 20:00 100.1 86 19 100/52 (68) 100 05/09/20 20:00 73 05/09/20 20:00 35 05/09/20 19:30 61 18 35 05/09/20 19:30 100.4 05/09/20 17:00 116 20 35 05/09/20 16:02 108 21 35 05/09/20 16:00 35 05/09/20 16:00 Mechanical Ventilator 05/09/20 16:00 98.0 86 19 119/62 (81) 99 05/09/20 16:00 88 I&O Intake and Output 05/09/20 05/10/20 19:00 07:00 Intake Total 1398.75 ml 1069.399 ml Output Total 600 ml 600 ml Balance 798.75 ml 469.399 ml Intake Free Water 120 ml IV Total 1278.75 ml 1069.399 ml Output Urine Total 600 ml 600 ml # Bowel Movements 4 Dressing: saturated Wound: clean Cardiovascular: RSR Respiratory: decreased breath sounds Abdomen: soft, non-tender, present bowel sounds Extremities: no tenderness, no cyanosis Laboratory Tests Test 05/09/20 15:00 05/10/20 02:50 Stool Occult Blood Positive (NEGATIVE) White Blood Count 6.8 K/UL (4.8-10.8) Red Blood Count 2.61 M/UL (4.20-5.40) L Hemoglobin 7.7 G/DL (12.0-16.0) L Hematocrit 23.1 % (37.0-47.0) L Mean Corpuscular Volume 89 FL (80-99) Mean Corpuscular Hemoglobin 29.6 PG (27.0-31.0) Mean Corpuscular Hemoglobin Concent 33.4 G/DL (32.0-36.0) Red Cell Distribution Width 12.8 % (11.6-14.8) Platelet Count 155 K/UL (150-450) Mean Platelet Volume 8.1 FL (6.5-10.1) Neutrophils (%) (Auto) % (45.0-75.0) Lymphocytes (%) (Auto) % (20.0-45.0) Monocytes (%) (Auto) % (1.0-10.0) Eosinophils (%) (Auto) % (0.0-3.0) Basophils (%) (Auto) % (0.0-2.0) Sodium Level 132 MMOL/L (136-145) L Potassium Level 3.2 MMOL/L (3.5-5.1) L Chloride Level 98 MMOL/L (98-107) Carbon Dioxide Level 28 MMOL/L (21-32) Anion Gap 6 mmol/L (5-15) Blood Urea Nitrogen 83 mg/dL (7-18) H Creatinine 1.4 MG/DL (0.55-1.30) H Estimat Glomerular Filtration Rate 35.5 mL/min (>60) Glucose Level 118 MG/DL (74-106) H Calcium Level 7.1 MG/DL (8.5-10.1) L Phosphorus Level 3.5 MG/DL (2.5-4.9) Magnesium Level 2.2 MG/DL (1.8-2.4) Total Bilirubin 0.8 MG/DL (0.2-1.0) Aspartate Amino Transf (AST/SGOT) 50 U/L (15-37) H Alanine Aminotransferase (ALT/SGPT) 45 U/L (12-78) Alkaline Phosphatase 123 U/L (46-116) H C-Reactive Protein, Quantitative 6.7 mg/dL (0.00-0.90) H Pro-B-Type Natriuretic Peptide 38527 pg/mL (0-125) H Total Protein 4.7 G/DL (6.4-8.2) L Albumin 1.9 G/DL (3.4-5.0) L Globulin 2.8 g/dL Albumin/Globulin Ratio 0.7 (1.0-2.7) L Vitamin B12 Level 1289 PG/ML (193-986) H Plan Problems: (1) Sepsis (2) Nosocomial pneumonia (3) Hyponatremia (4) UTI (urinary tract infection) (5) Hypotension (6) Chronic respiratory failure Assessment & Plan: 89F ill appearing trach on vent trach evaluated and 8f xlt noted sutures in place causing tension and breakdown sutures removed at bedside trach stoma evaluated and with breakdown. dressings applied trach in place and functional cont vent support will monitor and follow with recs thank you Pt presented on admission with Tracheostomy ,Generalized edema, Multiple Pressure injuries. DTPI that is de-capped L Scapula(L)3.4cmx (W)7.3cm. Base of wound is 90% slough 10% Loose purpuric base and edges. Surrounding non-blanching erythema. Inferior L scapula ,but in close proximity is DTPI (L)1.9cm x (W)4.4cm. Base of wound is purpuric with Maroon borders. Within close proximity to both wounds #3 linear purpuric areas that fans from scapula area outward towards thoracic spine. DTPI Sacrococcygeal to L Buttocks (L)7.4cm x (W)4.3cm.Base of wound is purpuric and indurated with surrounding non-blanching erythema. Two Partial thickness pressure injuries noted to L buttocks(Proximal)2.5cm x (W) 4.6cm. Base of wound is moist and viable.Surrounding Non-Blanching erythema.( Distal)1cm x (W)1cm. Base of wound is moist and viable.Surrounding Non- Blanching erythema. Perineal area is erythematous and moist . A purpuric area that is fluctuant noted at Perineum. Bilat lower ext are edematous. 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 A second smaller serous Bulla noted to dorso/lateral R foot (L)2cm x(W)2.2cm.Scattered small purpuric areas noted to heads of 2nd ,3rd,4th metatarsals. Multiple purpuric areas noted to distal/lateral L tibia and L foot. Elongated Purpuric Area with Marginal erythema along edges noted to distal/ Lateral L tibia(L)7cm x (W)1.8cm. L Heel /L Foot is an irregular shaped Purpuric area with marginal erythema without fluctuance/induration (L)3cm x (W)9.5cm. L Lateral Malleolus DTPI(L)1.5cm x (W)1.9cm.. Base of injury is fluctuant, purpuric with Maroon borders. DTPI distal/lateral L foot (L)1.5cm x (W)1.5cm. Base of injury is maroon with fluctuance. L Heel is boggy with non-blanchable erythema. Tx.Plan: Cleanse wound L Scapula with Saline. Apply Therahoney. Apply Cavilon Skin Barrier Periwound. Cover with Optifoam Drsg every 3 days and prn. Apply Cavilon Skin Barrier to Purpuric areas L Scapula. Cover with Optifoam drsg every 3 days and prn. Apply Moisture Barrier Paste to Sacrum and L Buttocks. Cover each site with Optifoam drsgs. Change every 3 days and PRN. Apply Cavilon Skin Barrier [place] to Blisters R foot. Cover with ABD Pads and wrap with Kerlix every 3 days and prn. Apply Cavilon Barrier [place] To Purpuric areas Distal L tibia and L foot. Cover with ABD Pads and wrap with Kerlix every 3 days and prn. Reposition at least every 2hors or as tolerated . Off-load heels with Pillow. Place Pillow between knees. APM/CAILIN Mattress. (7) Anemia (8) NSTEMI (non-ST elevated myocardial infarction) (9) Feeding by G-tube Assessment & Plan: DAILY ESTIMATED NEEDS: Needs based on wound, critical care 47.5kg abw 25-30 kcals/kg 4322-6572 total kcals 1.25-2 g protein/kg 59-95 g total protein 25-30ml/kcal mL/kg 4623-5741 total fluid mLs NUTRITION DIAGNOSIS: Swallowing difficulty r/t respiratory status as evidenced by pt is trach and peg dep. CURRENT TF: NPO for EGD ENTERAL NUTRITION RECOMMENDATIONS: Osmolite 1.2 goal of 45ml/hr x24 hrs + Prosource 1 pack daily to provide 1080ml, 1296 kcal, 60g + 11g pro, 886ml free H2O - As medically able, start Osmolite low fiber TF @low rate 25ml/hr for 6 hrs. - Advance as tolerated 10ml/hr q4-6 hrs to goal - Flush per MD/ HOB over 30 degrees - Add Prosource 1 pack daily to better meet est pro needs. ADDITIONAL RECOMMENDATIONS: 1) F/up w/ WC eval, add GOLDIE BID w/ TF order 2) Per SNF : 4'8" (56 inches) and 142 lbs/64.55kg 3) Monitor renal function, lytes; need for renal TF formula 4) Monitor BG and need for carb control formula -> rec accuchecks + niss (10) HIRO (acute kidney injury) (11) Chronic vegetative state (12) ICH (intracerebral hemorrhage) Vickey Galvez May 10, 2020 14:43
--- NOTE | 2020-05-10 15:44 | NUR ---
CASE MANAGEMENT: REVIEW SI: ANEMIA . HIRO . PNA EGD WHEN CLEARED BY CARDIO T 98.0 HR 122 RR 21 BP 115/70 SAT 100% MECH VENT FIO2 35 H/H 7.7/23.1 NA 132 K 3.2 BUN 83 CR 1.4 BNP [id number] IS: VANCOMYCIN IV Q24HR MICAFUNGIN IV Q24HR MEROPENEM IV Q12HR PROTONIX IV Q12HR D5 NS IVF @ 100ML/HR STEP DOWN UNIT DCP: PATIENT IS FROM [facility]
--- NOTE | 2020-05-10 15:51 | NUR ---
[facility] [phone] SPOKE TO: ALVARO WAYNE [facility] FULLY DELEGATED NO AUTH ON FILE YET FAX CLINCIALS TO [facility] [phone]
--- NOTE | 2020-05-10 15:54 | Diagnostic Imaging Report ---
Indication: Dyspnea Technique: One view of the chest Comparison: 05/09/2020 Findings: There are bilateral interstitial and airspace infiltrates versus edema again demonstrated, stable slightly worse. Left hemidiaphragm is obscured, pleural effusion likely. There is probably a small amount of pleural fluid on the right as well. The heart is enlarged. Tracheostomy is again demonstrated. Impression: Stable or slightly worse bilateral interstitial and airspace edema versus infiltrates
[2020-05-10 16:00] VITALS: BP 115/61
--- NOTE | 2020-05-10 17:39 | Cardiac Electrophysiology PN ---
Assessment/Plan Assessment/Plan 1. Non-ST elevation myocardial infarction with troponin of 3.2, down to 2 and 1.9. Due to demand ischemia in view hemoglobin of only 6 as well as renal failure. Her EKG shows sinus rhythm with nonspecific ST-T wave abnormality and no ST elevation. 2. Volume overload. BNP of 19,000 as well as 4+ edema. However, the patient is likely intravascularly depleted as her BUN is 112 and creatinine 1.8. Improved to 83/1.4. Fu by Dr. Minor. 3. Severe hyponatremia, sodium 125. 4. S/P Septic shock with lactic acidosis and Hb 6. Got PRBC and is on IV antibiotic per ID. OK to proceed with EGD in am. 5. 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 6. Dysphagia, status post PEG placement. 7. Acute renal failure. DW RN Subjective Subjective Remained in atrial fib in 70s.Had rachel down to 30s and tachy episodes as well. On 35% Fio2 on Vent via Trach. NPO. Scheduled for EGD in am Objective Last 24 Hour Vital Signs Date Time Temp Pulse Resp B/P (MAP) Pulse Ox O2 Delivery O2 Flow Rate FiO2 05/10/20 17:00 118 18 35 05/10/20 16:00 35 05/10/20 16:00 105 05/10/20 15:16 122 21 35 05/10/20 13:20 73 19 35 05/10/20 12:00 98.0 104 19 115/70 (85) 100 05/10/20 12:00 Mechanical Ventilator 05/10/20 12:00 94 05/10/20 12:00 35 05/10/20 10:30 120 19 35 05/10/20 09:00 94 17 35 05/10/20 08:00 35 05/10/20 08:00 Mechanical Ventilator 05/10/20 08:00 94 05/10/20 07:47 97.9 94 19 100/77 (85) 99 05/10/20 06:35 116 20 35 05/10/20 05:20 94 16 35 05/10/20 04:00 98.9 80 19 101/63 (76) 100 05/10/20 04:00 87 05/10/20 04:00 Mechanical Ventilator 05/10/20 04:00 35 05/10/20 03:30 92 16 35 05/10/20 01:30 108 18 35 05/10/20 00:00 99.3 95 19 103/57 (72) 98 05/10/20 00:00 Mechanical Ventilator 05/09/20 23:32 96 05/09/20 23:23 94 16 35 05/09/20 21:08 99.9 05/09/20 21:00 99.9 05/09/20 20:32 58 18 35 05/09/20 20:00 Mechanical Ventilator 05/09/20 20:00 100.1 86 19 100/52 (68) 100 05/09/20 20:00 73 05/09/20 20:00 35 05/09/20 19:30 61 18 35 05/09/20 19:30 100.4 Intake and Output 05/09/20 05/10/20 19:00 07:00 Intake Total 1398.75 ml 1069.399 ml Output Total 600 ml 600 ml Balance 798.75 ml 469.399 ml Intake Free Water 120 ml IV Total 1278.75 ml 1069.399 ml Output Urine Total 600 ml 600 ml # Bowel Movements 4 Laboratory Tests Test 05/10/20 02:50 White Blood Count 6.8 K/UL (4.8-10.8) Red Blood Count 2.61 M/UL (4.20-5.40) L Hemoglobin 7.7 G/DL (12.0-16.0) L Hematocrit 23.1 % (37.0-47.0) L Mean Corpuscular Volume 89 FL (80-99) Mean Corpuscular Hemoglobin 29.6 PG (27.0-31.0) Mean Corpuscular Hemoglobin Concent 33.4 G/DL (32.0-36.0) Red Cell Distribution Width 12.8 % (11.6-14.8) Platelet Count 155 K/UL (150-450) Mean Platelet Volume 8.1 FL (6.5-10.1) Neutrophils (%) (Auto) % (45.0-75.0) Lymphocytes (%) (Auto) % (20.0-45.0) Monocytes (%) (Auto) % (1.0-10.0) Eosinophils (%) (Auto) % (0.0-3.0) Basophils (%) (Auto) % (0.0-2.0) Sodium Level 132 MMOL/L (136-145) L Potassium Level 3.2 MMOL/L (3.5-5.1) L Chloride Level 98 MMOL/L (98-107) Carbon Dioxide Level 28 MMOL/L (21-32) Anion Gap 6 mmol/L (5-15) Blood Urea Nitrogen 83 mg/dL (7-18) H Creatinine 1.4 MG/DL (0.55-1.30) H Estimat Glomerular Filtration Rate 35.5 mL/min (>60) Glucose Level 118 MG/DL (74-106) H Calcium Level 7.1 MG/DL (8.5-10.1) L Phosphorus Level 3.5 MG/DL (2.5-4.9) Magnesium Level 2.2 MG/DL (1.8-2.4) Total Bilirubin 0.8 MG/DL (0.2-1.0) Aspartate Amino Transf (AST/SGOT) 50 U/L (15-37) H Alanine Aminotransferase (ALT/SGPT) 45 U/L (12-78) Alkaline Phosphatase 123 U/L (46-116) H C-Reactive Protein, Quantitative 6.7 mg/dL (0.00-0.90) H Pro-B-Type Natriuretic Peptide 63600 pg/mL (0-125) H Total Protein 4.7 G/DL (6.4-8.2) L Albumin 1.9 G/DL (3.4-5.0) L Globulin 2.8 g/dL Albumin/Globulin Ratio 0.7 (1.0-2.7) L Vitamin B12 Level 1289 PG/ML (193-986) H Microbiology Date/Time Source Procedure Growth Status 05/08/20 12:15 Blood Blood Culture - Preliminary Resulted 05/08/20 12:00 Blood Blood Culture - Preliminary Gram Positive Cocci Resulted 05/09/20 09:05 Nasopharynx SARS-CoV-2 RdRp Gene Assay - Final Complete 05/08/20 12:00 Nasal Nares MRSA Culture - Final NO METHICILLIN RESISTANT STAPH AUREUS... Complete 05/08/20 10:30 Nasopharynx SARS-CoV-2 RdRp Gene Assay - Final Complete 05/09/20 15:00 Stool Clostridium difficile Toxin Assay - Final Complete 05/08/20 10:50 Urine,Clean Catch Urine Culture - Final Klebsiella Pneumoniae Esbl Complete 05/08/20 12:00 Rectum - Final NO CARBAPENEM-RESISTANT ENTEROBACTERI... Complete 05/08/20 12:00 Rectum VRE Culture - Final Enterococcus Faecium - Vre Complete Objective HEAD AND NECK: Status post tracheostomy, which is fresh. LUNGS: Coarse rhonchi. CARDIOVASCULAR: Regular S1 and S2 with no gallop. ABDOMEN: Status post G-tube. EXTREMITIES: 3+ pitting edema. Renard Erickson MD May 10, 2020 17:39
--- NOTE | 2020-05-10 18:30 | Progress Note ---
DATE: 05/10/2020 SUBJECTIVE: Patient is awake, alert, afebrile, hemodynamically stable, but avoids eye contact. PHYSICAL EXAMINATION: VITAL SIGNS: Blood pressure 115/70, pulse is 104, respirations are 19, temperature 98.0. HEENT: Eyes were normal. ENT, mucous membranes moist and intact. NECK: Supple with no JVD without lymph nodes. Tracheostomy site is clean. LUNGS: Clear without rhonchi, rales, or wheezing. HEART: Normal sounds with regular beats. There is intermittent tachycardia at rest. ABDOMEN: Soft, nontender with normal bowel sounds. Gastrostomy site is clean. EXTREMITIES: Warm without cyanosis, clubbing, or edema. LABORATORY AND DIAGNOSTIC DATA: Hemoglobin is 7.7, hematocrit 23.1 with MCV of 89, WBC of 6.8, and platelets 155. Her BUN and creatinine is 83 and 1.4 respectively. Sodium is 132, potassium 3.2, chloride 98, CO2 is 28. Her magnesium is 2.2. Her phosphorus is 3.5. Her iron saturation is 20. SGOT 45, SGPT is normal, alkaline phosphatase is 123. [place] 6[place] [address]. 16.5. Her CRP was 9.9 yesterday and [place]BNP [place] 48268 yesterday. Her troponin was 2.1 two days ago. It was 1.9 yesterday. IMPRESSION: Patient has improved multiple parameters that include CRP, proBNP, and troponin. Patient has been assessed by the viscose cellar worker. To note, patient had serial EKGs that shows that patient has atrial fibrillation with rapid ventricular response within 100 to 130 and on the same time has atrial fibrillation with a rate of 39 to 40 that lasted 6 seconds. She tachycardia bradycardia syndrome. However, Cardiology cleared the patient to undergo upper GI endoscopy because of her drastic drop in hemoglobin and hematocrit and patient will not require other interventional tests like stress test or coronary angiogram and coronary dilation. The patient will be scheduled for upper GI endoscopy, but not to colonoscopy under this current condition. Repeat laboratory tests will be done in the a.m. Anita Kauffman M.D. DR: KRISHAN JOB#: [id number] CC:
--- NOTE | 2020-05-10 19:35 | NUR ---
NURSE HAND-OFF REPORT: Important Events on Shift:Hypokalemia Patient Status: stable Diet: NPO Pending Orders: n/a Pending Results/Labs:Tip culture Pending MD notification:n/a Latest Vital Signs: Temperature 98.0 , Pulse 118 , B/P 115 /61 , Respiratory Rate 18 , O2 SAT 100 , Mechanical Ventilator, O2 Flow Rate . Vital Sign Comment: VSS EKG Rhythm: Atrial Fibrillation Rhythm change?: N MD Notified?: N - MD Response: Latest [place] Fall Score: 70 Fall Risk: High Risk Safety Measures: Call light Within Reach, Bed Alarm Zone 1, Side Rails Side Rails x3, Bed position Low and Locked. Fall Precautions: Yellow Socks Yellow Gown Patient Fall Education Report given to sid Campbell
--- NOTE | 2020-05-10 19:45 | NUR ---
NURSE NOTES: assessed pt. to right femoral area where femoral line was removed prior to shift- no bleeding noted- gauze appears to be dry- will continue to monitor pt. and with plan of care.
--- NOTE | 2020-05-10 19:52 | NUR ---
NURSE NOTES: Received report form ROSALINO Garcia, pt, in bed awake, no signs or symptoms of acute cardiac or respiratory distress noted, bed alarm on, side rails up x's3 and safety brakes engaged call light within easy reach, pt. appears to be tolerating current vent settings well- AC 10, TV 400, fio2 35% and peep 5- no distress noted, pt. has G tube clamped- But NPO for EGD in am, HOB elevated, Quiñonez intact and draining to gravity, pt. appears clean and dry, Left hand 24G IV intact and patent, GERI 20G IV intact and patent running D5NS at 100cc/hr, safety measures continued, will continue with plan of care.
[2020-05-10 20:00] VITALS: BP 143/78
--- NOTE | 2020-05-10 20:00 | NUR ---
NURSE NOTES: culture tip for catheter ordered- as i was endorsed it was ordered by DR. Snyder earlier- and order was not in computer.
[2020-05-10] MEDS: Micafungin 100 MG in NS 110 ML IVPB SCH (20:24)
[2020-05-10] MEDS ORDERED: Vancomycin 500mg/D5W 110ml IVPB SCH ×2 (21:00)
[2020-05-11] VITALS: BP 131/82
--- NOTE | 2020-05-11 | NUR ---
NURSE NOTES: bed bath given linens changed- oral care provided- HOB elevated- pt. appears to be resting comfortably in bed- no distress noted- appears to be tolerating current vent settings well- will continue to monitor pt. and with plan of care.
--- NOTE | 2020-05-11 | NUR ---
NURSE NOTES: assessed pt. to right femoral area where femoral line was removed prior to shift- no bleeding noted- gauze appears to be dry- will continue to monitor pt. and with plan of care. pt. remains stable.
--- NOTE | 2020-05-11 01:00 | NUR ---
NURSE NOTES: per Sharif at lab there is no order for catheter tip- put order for catheter tip in again - order was cancelled again- called lab spoke with Brandi - notified her catheter tip was cancelled- per Brnadi she will look in to this and f/u again with me.
[2020-05-11] MEDS: D5NS 1,000 ML IV SCH ×2 (03:39→11:01)
[2020-05-11 04:00] VITALS: BP 144/89
[2020-05-11] MEDS: Acetaminophen 650mg/20.3ml GT PRN ×2 (04:10→20:14)
[2020-05-11 05:21] LABS: HEMATOCRIT 24.6 % (37.0-47.0); HEMOGLOBIN 8.1 G/DL (12.0-16.0); MEAN CORPUSCULAR VOLUME 90 FL (80-99); PLATELET COUNT 167 K/UL (150-450); RED BLOOD COUNT 2.74 M/UL (4.20-5.40); RED CELL DISTRIBUTION WIDTH 12.9 % (11.6-14.8); WHITE BLOOD COUNT 7.2 K/UL (4.8-10.8)
[2020-05-11 05:55] LABS: ALANINE AMINOTRANSFERASE 47 U/L (12-78); ALBUMIN 2.3 G/DL (3.4-5.0); ALBUMIN/GLOBULIN RATIO 0.8 (1.0-2.7); ALKALINE PHOSPHATASE 164 U/L (46-116); ANION GAP 9 mmol/L (5-15); ASPARTATE AMINO TRANSFERASE 46 U/L (15-37); BLOOD UREA NITROGEN 62 mg/dL (7-18); CALCIUM 7.4 MG/DL (8.5-10.1); CARBON DIOXIDE 26 MMOL/L (21-32); CHLORIDE 102 MMOL/L (98-107); CREATININE 1.2 MG/DL (0.55-1.30); PHOSPHORUS 2.7 MG/DL (2.5-4.9); POTASSIUM 3.4 MMOL/L (3.5-5.1); SODIUM 137 MMOL/L (136-145)
--- NOTE | 2020-05-11 07:09 | Infectious Diseases Prog Note ---
Assessment/Plan 89yo F with: Hypotension in setting of anemia to 6.0 Normal WBC Afebrile, Tmax 99.7 --> Febrile to 100.4 Fungemia 05/08 BCx +yeast 05/10 R fem CVC removed 05/08 TTE wo apparent vegetations GPC Bacteremia 05/08 BCx 1/2 +E.faecalis (S-amp) MRSA nares neg Possible UTI 05/08 UA+, UCx >100k ESBL Kleb pna (R-levo @1) Possible pna, vent dependent via trach 05/08 CXR: Patchy opacities throughout the lungs which may represent pulmonary edema versus infectious/inflammatory process. Possible small pleural effusions. 05/08 COVID rapid Ag neg x1 05/09 COVID rapid Ag neg x1 Volume OL? 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 H/o ICH, now non-verbal, not interactive PMH: GIB, ICH, trach and vent dependent, HTN, GERD Plan: Stop vanco #1 Start ampicillin #1 (abx day #4/14) for E.faecalis bacteremia Cont micafungin #2 for fungemia Cont meropenem #2/3 (abx day #4/5) for ESBL Kleb in UCx 05/10 SP Zosyn #2 ?Source of polymicrobial bacteremia/fungemia, likely gut source given organisms Going for colonoscopy tomorrow, if this is unremarkable then will need CT A/P w con to eval for source of bacteremia/fungemia Repeat BCx to ensure clearance today and tomorrow morning Ensure all lines removed, PIVs exchanged F/u BCx Trend HIRO, improving Monitor CBC/CMP Monitor resp status Monitor temp curve D/w RN Thank you for this consult. [facility] will continue to follow. Subjective Allergies: Coded Allergies: No Known Allergies (Unverified , 05/08/20) AF On vent, FiO2 35% satting 99% NAD Objective Last 24 Hour Vital Signs Date Time Temp Pulse Resp B/P (MAP) Pulse Ox O2 Delivery O2 Flow Rate FiO2 05/11/20 06:47 98.1 05/11/20 04:40 98.9 05/11/20 04:32 101 19 35 05/11/20 04:00 35 05/11/20 04:00 Mechanical Ventilator 05/11/20 04:00 99.6 113 20 144/89 (107) 100 05/11/20 03:35 104 05/11/20 02:35 71 27 35 05/11/20 00:33 122 25 35 05/11/20 00:00 35 05/11/20 00:00 98.2 112 22 131/82 (98) 99 05/11/20 00:00 Mechanical Ventilator 05/10/20 23:33 101 05/10/20 22:51 110 22 35 05/10/20 21:07 96 17 35 05/10/20 20:00 Mechanical Ventilator 05/10/20 20:00 98.6 99 18 143/78 (99) 100 05/10/20 20:00 35 05/10/20 19:24 91 05/10/20 18:30 120 19 35 05/10/20 17:00 118 18 35 05/10/20 16:00 Mechanical Ventilator 05/10/20 16:00 98.0 98 19 115/61 (79) 100 05/10/20 16:00 35 05/10/20 16:00 105 05/10/20 15:16 122 21 35 05/10/20 13:20 73 19 35 05/10/20 12:00 98.0 104 19 115/70 (85) 100 05/10/20 12:00 Mechanical Ventilator 05/10/20 12:00 94 05/10/20 12:00 35 05/10/20 10:30 120 19 35 05/10/20 09:00 94 17 35 05/10/20 08:00 35 05/10/20 08:00 Mechanical Ventilator 05/10/20 08:00 94 05/10/20 07:47 97.9 94 19 100/77 (85) 99 Height (Feet): 5 Height (Inches): 2.00 Weight (Pounds): 155 Gen: Older woman, on vent, NAD HEENT: Trach CV: RRR Pulm: CTAB on vent Abd: Soft, NTND, +PEG Neuro: Non-responsive Lines: R fem CVC removed; PIVs in BL hands (new) Microbiology Date/Time Source Procedure Growth Status 05/08/20 12:15 Blood Blood Culture - Preliminary YEAST Resulted 05/08/20 12:00 Blood Blood Culture - Final Enterococcus Faecalis Complete 05/09/20 09:05 Nasopharynx SARS-CoV-2 RdRp Gene Assay - Final Complete 05/08/20 12:00 Nasal Nares MRSA Culture - Final NO METHICILLIN RESISTANT STAPH AUREUS... Complete 05/08/20 10:30 Nasopharynx SARS-CoV-2 RdRp Gene Assay - Final Complete 05/09/20 15:00 Stool Clostridium difficile Toxin Assay - Final Complete 05/08/20 10:50 Urine,Clean Catch Urine Culture - Final Klebsiella Pneumoniae Esbl Complete 05/08/20 12:00 Rectum - Final NO CARBAPENEM-RESISTANT ENTEROBACTERI... Complete 05/08/20 12:00 Rectum VRE Culture - Final Enterococcus Faecium - Vre Complete Laboratory Tests Test 05/11/20 02:50 White Blood Count 7.2 K/UL (4.8-10.8) Red Blood Count 2.74 M/UL (4.20-5.40) L Hemoglobin 8.1 G/DL (12.0-16.0) L Hematocrit 24.6 % (37.0-47.0) L Mean Corpuscular Volume 90 FL (80-99) Mean Corpuscular Hemoglobin 29.7 PG (27.0-31.0) Mean Corpuscular Hemoglobin Concent 33.0 G/DL (32.0-36.0) Red Cell Distribution Width 12.9 % (11.6-14.8) Platelet Count 167 K/UL (150-450) Mean Platelet Volume 6.9 FL (6.5-10.1) Neutrophils (%) (Auto) % (45.0-75.0) Lymphocytes (%) (Auto) % (20.0-45.0) Monocytes (%) (Auto) % (1.0-10.0) Eosinophils (%) (Auto) % (0.0-3.0) Basophils (%) (Auto) % (0.0-2.0) Neutrophils % (Manual) Pending Lymphocytes % (Manual) Pending Platelet Estimate Pending Platelet Morphology Pending Sodium Level 137 MMOL/L (136-145) Potassium Level 3.4 MMOL/L (3.5-5.1) L Chloride Level 102 MMOL/L (98-107) Carbon Dioxide Level 26 MMOL/L (21-32) Anion Gap 9 mmol/L (5-15) Blood Urea Nitrogen 62 mg/dL (7-18) H Creatinine 1.2 MG/DL (0.55-1.30) Estimat Glomerular Filtration Rate 42.5 mL/min (>60) Glucose Level 117 MG/DL (74-106) H Calcium Level 7.4 MG/DL (8.5-10.1) L Phosphorus Level 2.7 MG/DL (2.5-4.9) Magnesium Level 2.1 MG/DL (1.8-2.4) Total Bilirubin 1.0 MG/DL (0.2-1.0) Aspartate Amino Transf (AST/SGOT) 46 U/L (15-37) H Alanine Aminotransferase (ALT/SGPT) 47 U/L (12-78) Alkaline Phosphatase 164 U/L (46-116) H Total Protein 5.2 G/DL (6.4-8.2) L Albumin 2.3 G/DL (3.4-5.0) L Globulin 2.9 g/dL Albumin/Globulin Ratio 0.8 (1.0-2.7) L Cortisol AM Sample Pending Current Medications Medications (Trade) Dose Ordered Sig/Sherie Route PRN Reason Start Time Stop Time Status Last Admin Dose Admin Acetaminophen (Tylenol) 650 mg Q6H PRN GT For Headache 05/09/20 20:30 06/08/20 20:29 05/11/20 04:10 Dextrose/Sodium Chloride 1,000 ml @ 100 mls/hr Q10H IV 05/08/20 16:00 06/07/20 15:59 05/11/20 03:39 Docusate Sodium (Colace) 100 mg TWICE A DAY NG 05/09/20 18:00 06/08/20 17:59 Meropenem 500 mg/ Sodium Chloride 55 ml @ 110 mls/hr EVERY 12 HOURS IVPB 05/10/20 13:00 05/15/20 12:59 05/10/20 20:30 Micafungin Sodium 100 mg/Sodium Chloride 110 ml @ 110 mls/hr Q24H IVPB 05/10/20 20:00 05/17/20 19:59 05/10/20 20:24 Pantoprazole (Protonix) 40 mg EVERY 12 HOURS IVP 05/08/20 21:00 06/07/20 20:59 05/10/20 20:24 Sucralfate (Carafate) 1 gm FOUR TIMES A DAY GT 05/08/20 18:00 08/06/20 17:59 05/10/20 20:24 Vancomycin HCl (Vanco pharmacy to dose) 1 ea DAILY PRN MISC Per rx protocol 05/09/20 16:45 06/08/20 16:44 Vancomycin HCl 500 mg/Dextrose 110 ml @ 110 mls/hr Q24H IVPB 05/10/20 21:00 05/15/20 20:59 05/10/20 20:24 Ashley Snyder M.D. May 11, 2020 07:09
--- NOTE | 2020-05-11 07:10 | Hematology/Onc Progress Note ---
Assessment/Plan Assessment/Plan Assessment and Recs # Anemia rule out underlying gi bleed --> anemia panel has been ordered, esr, ferritin, tibc, occult --> s/p transfusion prbc 05/08 --> gi service if h/h downtrends --> triple lumen has been placed --> hgb 7.7-->8.1 # NSTEMI (non-ST elevated myocardial infarction) with trop elevation -> on bb, off asa --> seen by Dr. Erickson --> volume management as per cards/renal --> trop downtrended # HIRO (acute kidney injury) --> cr 1.8-->1.5 # Hyponatremia/Hypokalemoa --> per renal recs # Respiratory failure s/p trach --> consulted pulm # PNA on cxr --> as per id recs --> ABX amp/micaf/elaine # Dysphagia s/p peg # Dvt ppx scds Appreciate home care consultant care, will follow Subjective Constitutional: Denies: no symptoms, chills, fever, malaise, weakness, other HEENT: Denies: no symptoms, eye pain, blurred vision, tearing, double vision, ear pain, ear discharge, nose pain, nose congestion, throat pain, throat swelling, mouth pain, mouth swelling, other Cardiovascular: Denies: no symptoms, chest pain, edema, irregular heart rate, lightheadedness, palpitations, syncope, other Respiratory: Denies: no symptoms, cough, shortness of breath, SOB with excertion, SOB at rest, sputum, wheezing, other Gastrointestinal/Abdominal: Denies: no symptoms, abdomen distended, abdominal pain, black stools, tarry stools, blood in stool, constipated, diarrhea, difficulty swallowing, nausea, poor appetite, poor fluid intake, rectal bleeding , vomiting, other Genitourinary: Denies: no symptoms, burning, discharge, frequency, flank pain, hematuria, incontinence, pain, urgency, other Neurologic/Psychiatric: Denies: no symptoms, anxiety, depressed, emotional problems, headache, numbness, paresthesia, pre-existing deficit, seizure, tingling, tremors, weakness, other Endocrine: Denies: no symptoms, excessive sweating, flushing, intolerance to cold, intolerance to heat, increased hunger, increased thirst, increased urine, unexplained weight gain, unexplained weight loss, other Hematologic/Lymphatic: Denies: no symptoms, anemia, easy bleeding, easy bruising, adenopathy, other Allergies: Coded Allergies: No Known Allergies (Unverified , 05/08/20) Subjective 05/10 remains obtunded, michelle rn, labs are noted, on vanc/zosyn, mild temp overnight 05/11 no bleeding or chills, on abx, remains confused, no night swaets Objective Objective Current Medications Medications (Trade) Dose Ordered Sig/Sherie Route PRN Reason Start Time Stop Time Status Last Admin Dose Admin Acetaminophen (Tylenol) 650 mg Q6H PRN GT For Headache 05/09/20 20:30 06/08/20 20:29 05/11/20 04:10 Ampicillin 2 gm/ Sodium Chloride 110 ml @ 220 mls/hr EVERY 6 HOURS IVPB 05/11/20 07:15 05/18/20 07:14 UNV Dextrose/Sodium Chloride 1,000 ml @ 100 mls/hr Q10H IV 05/08/20 16:00 06/07/20 15:59 05/11/20 03:39 Docusate Sodium (Colace) 100 mg TWICE A DAY NG 05/09/20 18:00 06/08/20 17:59 Meropenem 500 mg/ Sodium Chloride 55 ml @ 110 mls/hr EVERY 12 HOURS IVPB 05/10/20 13:00 05/15/20 12:59 05/10/20 20:30 Micafungin Sodium 100 mg/Sodium Chloride 110 ml @ 110 mls/hr Q24H IVPB 05/10/20 20:00 05/17/20 19:59 05/10/20 20:24 Pantoprazole (Protonix) 40 mg EVERY 12 HOURS IVP 05/08/20 21:00 06/07/20 20:59 05/10/20 20:24 Sucralfate (Carafate) 1 gm FOUR TIMES A DAY GT 05/08/20 18:00 08/06/20 17:59 05/10/20 20:24 Last 24 Hour Vital Signs Date Time Temp Pulse Resp B/P (MAP) Pulse Ox O2 Delivery O2 Flow Rate FiO2 05/11/20 06:47 98.1 05/11/20 04:40 98.9 05/11/20 04:32 101 19 35 05/11/20 04:00 35 05/11/20 04:00 Mechanical Ventilator 05/11/20 04:00 99.6 113 20 144/89 (107) 100 05/11/20 03:35 104 05/11/20 02:35 71 27 35 05/11/20 00:33 122 25 35 05/11/20 00:00 35 05/11/20 00:00 98.2 112 22 131/82 (98) 99 05/11/20 00:00 Mechanical Ventilator 05/10/20 23:33 101 05/10/20 22:51 110 22 35 05/10/20 21:07 96 17 35 05/10/20 20:00 Mechanical Ventilator 05/10/20 20:00 98.6 99 18 143/78 (99) 100 05/10/20 20:00 35 05/10/20 19:24 91 05/10/20 18:30 120 19 35 05/10/20 17:00 118 18 35 05/10/20 16:00 Mechanical Ventilator 05/10/20 16:00 98.0 98 19 115/61 (79) 100 05/10/20 16:00 35 05/10/20 16:00 105 05/10/20 15:16 122 21 35 05/10/20 13:20 73 19 35 05/10/20 12:00 98.0 104 19 115/70 (85) 100 05/10/20 12:00 Mechanical Ventilator 05/10/20 12:00 94 05/10/20 12:00 35 05/10/20 10:30 120 19 35 05/10/20 09:00 94 17 35 05/10/20 08:00 35 05/10/20 08:00 Mechanical Ventilator 05/10/20 08:00 94 05/10/20 07:47 97.9 94 19 100/77 (85) 99 05/10/20 06:35 116 20 35 05/10/20 05:20 94 16 35 05/10/20 04:00 98.9 80 19 101/63 (76) 100 05/10/20 04:00 87 05/10/20 04:00 Mechanical Ventilator 05/10/20 04:00 35 05/10/20 03:30 92 16 35 05/10/20 01:30 108 18 35 05/10/20 00:00 99.3 95 19 103/57 (72) 98 05/10/20 00:00 Mechanical Ventilator 05/09/20 23:32 96 05/09/20 23:23 94 16 35 05/09/20 21:00 99.9 05/09/20 20:32 58 18 35 05/09/20 20:00 Mechanical Ventilator 05/09/20 20:00 100.1 86 19 100/52 (68) 100 05/09/20 20:00 73 05/09/20 20:00 35 05/09/20 19:30 61 18 35 05/09/20 19:30 100.4 05/09/20 17:00 116 20 35 05/09/20 16:02 108 21 35 05/09/20 16:00 35 05/09/20 16:00 Mechanical Ventilator 05/09/20 16:00 98.0 86 19 119/62 (81) 99 05/09/20 16:00 88 05/09/20 13:35 120 21 35 05/09/20 12:00 97.9 74 18 121/57 (78) 99 05/09/20 12:00 35 05/09/20 12:00 65 05/09/20 12:00 Mechanical Ventilator 05/09/20 11:04 110 20 35 05/09/20 08:49 84 15 35 05/09/20 08:00 85 05/09/20 08:00 35 05/09/20 08:00 Mechanical Ventilator 05/09/20 08:00 98.6 82 18 111/55 (73) 99 05/09/20 07:17 80 13 35 Intake and Output 05/10/20 05/11/20 19:00 07:00 Intake Total 1890.0 ml 1689 ml Output Total 800 ml 550 ml Balance 1090.0 ml 1139 ml IV Total 1690.0 ml 1689 ml Other 200 ml Output Urine Total 800 ml 550 ml # Bowel Movements 2 4 Labs Test 05/08/20 10:50 05/08/20 12:00 05/08/20 13:30 05/08/20 19:45 Urine Color Yellow Urine Appearance Slightly cloudy Urine pH 5 (4.5-8.0) Urine Specific [place] 1.010 (1.005-1.035) Urine Protein Negative (NEGATIVE) Urine Glucose (UA) Negative (NEGATIVE) Urine Ketones Negative (NEGATIVE) Urine Blood 3+ (NEGATIVE) Urine Nitrite Negative (NEGATIVE) Urine Bilirubin Negative (NEGATIVE) Urine Urobilinogen Normal MG/DL (0.0-1.0) Urine Leukocyte Esterase 2+ (NEGATIVE) Urine RBC 15-20 /HPF (0 - 2) Urine WBC 20-30 /HPF (0 - 2) Urine Squamous Epithelial Cells Moderate /LPF (NONE/OCC) Urine Bacteria Moderate /HPF (NONE) Urine Yeast Many /HPF (NONE) White Blood Count 9.5 K/UL (4.8-10.8) Red Blood Count 2.01 M/UL (4.20-5.40) Hemoglobin 6.0 G/DL (12.0-16.0) Hematocrit 18.3 % (37.0-47.0) Mean Corpuscular Volume 91 FL (80-99) Mean Corpuscular Hemoglobin 29.8 PG (27.0-31.0) Mean Corpuscular Hemoglobin Concent 32.7 G/DL (32.0-36.0) Red Cell Distribution Width 12.2 % (11.6-14.8) Platelet Count 153 K/UL (150-450) Mean Platelet Volume 9.3 FL (6.5-10.1) Neutrophils (%) (Auto) % (45.0-75.0) Lymphocytes (%) (Auto) % (20.0-45.0) Monocytes (%) (Auto) % (1.0-10.0) Eosinophils (%) (Auto) % (0.0-3.0) Basophils (%) (Auto) % (0.0-2.0) Differential Total Cells Counted 100 Neutrophils % (Manual) 80 % (45-75) Lymphocytes % (Manual) 11 % (20-45) Monocytes % (Manual) 6 % (1-10) Eosinophils % (Manual) 1 % (0-3) Basophils % (Manual) 1 % (0-2) Band Neutrophils 1 % (0-8) Platelet Estimate Adequate Platelet Morphology Normal Hypochromasia 4+ Anisocytosis 1+ Spherocytes 2+ Prothrombin Time 10.2 SEC (9.30-11.50) Prothromb Time International Ratio 0.9 (0.9-1.1) Activated Partial Thromboplast Time 25 SEC (23-33) Sodium Level 125 MMOL/L (136-145) Potassium Level 3.7 MMOL/L (3.5-5.1) Chloride Level 85 MMOL/L (98-107) Carbon Dioxide Level 34 MMOL/L (21-32) Anion Gap 6 mmol/L (5-15) Blood Urea Nitrogen 112 mg/dL (7-18) Creatinine 1.8 MG/DL (0.55-1.30) Estimat Glomerular Filtration Rate 26.6 mL/min (>60) Glucose Level 127 MG/DL (74-106) Lactic Acid Level 3.20 mmol/L (0.4-2.0) 2.60 mmol/L (0.66-2.22) Calcium Level 7.3 MG/DL (8.5-10.1) Total Bilirubin 0.5 MG/DL (0.2-1.0) Aspartate Amino Transf (AST/SGOT) 62 U/L (15-37) Alanine Aminotransferase (ALT/SGPT) 46 U/L (12-78) Alkaline Phosphatase 87 U/L (46-116) Troponin I 3.205 ng/mL (0.000-0.056) 2.111 ng/mL (0.000-0.056) Pro-B-Type Natriuretic Peptide 37583 pg/mL (0-125) Total Protein 4.8 G/DL (6.4-8.2) Albumin 1.8 G/DL (3.4-5.0) Globulin 3.0 g/dL Albumin/Globulin Ratio 0.6 (1.0-2.7) Test 05/09/20 03:23 05/09/20 15:00 05/10/20 02:50 05/11/20 02:50 White Blood Count 8.0 K/UL (4.8-10.8) 6.8 K/UL (4.8-10.8) 7.2 K/UL (4.8-10.8) Red Blood Count 2.92 M/UL (4.20-5.40) 2.61 M/UL (4.20-5.40) 2.74 M/UL (4.20-5.40) Hemoglobin 8.6 G/DL (12.0-16.0) 7.7 G/DL (12.0-16.0) 8.1 G/DL (12.0-16.0) Hematocrit 25.5 % (37.0-47.0) 23.1 % (37.0-47.0) 24.6 % (37.0-47.0) Mean Corpuscular Volume 87 FL (80-99) 89 FL (80-99) 90 FL (80-99) Mean Corpuscular Hemoglobin 29.4 PG (27.0-31.0) 29.6 PG (27.0-31.0) 29.7 PG (27.0-31.0) Mean Corpuscular Hemoglobin Concent 33.6 G/DL (32.0-36.0) 33.4 G/DL (32.0-36.0) 33.0 G/DL (32.0-36.0) Red Cell Distribution Width 12.5 % (11.6-14.8) 12.8 % (11.6-14.8) 12.9 % (11.6-14.8) Platelet Count 141 K/UL (150-450) 155 K/UL (150-450) 167 K/UL (150-450) Mean Platelet Volume 8.0 FL (6.5-10.1) 8.1 FL (6.5-10.1) 6.9 FL (6.5-10.1) Neutrophils (%) (Auto) % (45.0-75.0) % (45.0-75.0) % (45.0-75.0) Lymphocytes (%) (Auto) % (20.0-45.0) % (20.0-45.0) % (20.0-45.0) Monocytes (%) (Auto) % (1.0-10.0) % (1.0-10.0) % (1.0-10.0) Eosinophils (%) (Auto) % (0.0-3.0) % (0.0-3.0) % (0.0-3.0) Basophils (%) (Auto) % (0.0-2.0) % (0.0-2.0) % (0.0-2.0) Reticulocyte Count 1.8 % (0.5-2.0) Sodium Level 130 MMOL/L (136-145) 132 MMOL/L (136-145) 137 MMOL/L (136-145) Potassium Level 3.1 MMOL/L (3.5-5.1) 3.2 MMOL/L (3.5-5.1) 3.4 MMOL/L (3.5-5.1) Chloride Level 92 MMOL/L (98-107) 98 MMOL/L (98-107) 102 MMOL/L (98-107) Carbon Dioxide Level 31 MMOL/L (21-32) 28 MMOL/L (21-32) 26 MMOL/L (21-32) Anion Gap 7 mmol/L (5-15) 6 mmol/L (5-15) 9 mmol/L (5-15) Blood Urea Nitrogen 103 mg/dL (7-18) 83 mg/dL (7-18) 62 mg/dL (7-18) Creatinine 1.5 MG/DL (0.55-1.30) 1.4 MG/DL (0.55-1.30) 1.2 MG/DL (0.55-1.30) Estimat Glomerular Filtration Rate 32.9 mL/min (>60) 35.5 mL/min (>60) 42.5 mL/min (>60) Glucose Level 128 MG/DL (74-106) 118 MG/DL (74-106) 117 MG/DL (74-106) Uric Acid 9.8 MG/DL (2.6-7.2) Calcium Level 6.8 MG/DL (8.5-10.1) 7.1 MG/DL (8.5-10.1) 7.4 MG/DL (8.5-10.1) Phosphorus Level 4.5 MG/DL (2.5-4.9) 3.5 MG/DL (2.5-4.9) 2.7 MG/DL (2.5-4.9) Magnesium Level 2.2 MG/DL (1.8-2.4) 2.2 MG/DL (1.8-2.4) 2.1 MG/DL (1.8-2.4) Iron Level 23 ug/dL (50-175) Total Iron Binding Capacity 115 ug/dL (250-450) Percent Iron Saturation 20 % (15-50) Unsaturated Iron Binding 92 ug/dL (112-346) Ferritin 1338 NG/ML (8-388) Total Bilirubin 0.6 MG/DL (0.2-1.0) 0.8 MG/DL (0.2-1.0) 1.0 MG/DL (0.2-1.0) Aspartate Amino Transf (AST/SGOT) 57 U/L (15-37) 50 U/L (15-37) 46 U/L (15-37) Alanine Aminotransferase (ALT/SGPT) 45 U/L (12-78) 45 U/L (12-78) 47 U/L (12-78) Alkaline Phosphatase 92 U/L (46-116) 123 U/L (46-116) 164 U/L (46-116) Lactate Dehydrogenase 462 U/L (81-234) Troponin I 1.928 ng/mL (0.000-0.056) C-Reactive Protein, Quantitative 9.9 mg/dL (0.00-0.90) 6.7 mg/dL (0.00-0.90) Pro-B-Type Natriuretic Peptide 15329 pg/mL (0-125) 75644 pg/mL (0-125) Total Protein 4.7 G/DL (6.4-8.2) 4.7 G/DL (6.4-8.2) 5.2 G/DL (6.4-8.2) Albumin 1.7 G/DL (3.4-5.0) 1.9 G/DL (3.4-5.0) 2.3 G/DL (3.4-5.0) Globulin 3.0 g/dL 2.8 g/dL 2.9 g/dL Albumin/Globulin Ratio 0.6 (1.0-2.7) 0.7 (1.0-2.7) 0.8 (1.0-2.7) Folate 15.5 NG/ML (8.6-58.9) Thyroid Stimulating Hormone (TSH) 1.954 uiU/mL (0.358-3.740) Cortisol AM Sample 16.5 UG/DL Stool Occult Blood Positive (NEGATIVE) Vitamin B12 Level 1289 PG/ML (193-986) Height (Feet): 5 Height (Inches): 2.00 Weight (Pounds): 155 Objective PE General: Obtunded, no spontaneous movement. No obvious distress HEENT: NC/AT. Neck: Tracheostomy appears appropriately placed Cardiovascular: RRR. S1 and S2 normal. No murmur appreciated Resp: Normal work of breathing. No cough Abdomen: Abdomen is soft, nondistended. Gastrostomy tube appears in appropriate position without surrounding signs of infection or trauma. Skin: Intact. No abrasions, laceration or rash over the exposed skin MSK: Normal tone and bulk. Neuro: Obtunded Willy Mustafa MD May 11, 2020 07:10
--- NOTE | 2020-05-11 07:12 | Anethesia Preoperative Eval ---
Anesthesia Pre-op PMH/ROS General Date of Evaluation: May 11, 2020 Time of Evaluation: 07:00 Anesthesiologist: shani ASA Score: ASA 4 Mallampati Score Class I : Soft palate, uvula, fauces, pillars visible Class II: Soft palate, uvula, fauces visible Class III: Soft palate, base of uvula visible Class IV: Only hard plate visible Mallampati Classification: Class III Surgeon: Abdulkadir Diagnosis: Anemia Surgical Procedure: EGD Anesthesia History: none Family History: no anesthesia problems Allergies: Coded Allergies: No Known Allergies (Unverified , 05/08/20) Medications: see eMAR Patient NPO?: Yes NPO Date: May 11, 2020 NPO Time: 00:01 Past Medical History Cardiovascular: Reports: HTN, CAD, [place], arrhythmia - afib; Denies: valve dz, other Pulmonary: Reports: other - Resp Failure s/p trach; Denies: asthma, COPD, MAGO Gastrointestinal/Genitourinary: Reports: GERD, CRI Neurologic/Psychiatric: Reports: dementia, other - Hx of ICH; Denies: CVA, depression/anxiety, TIA Endocrine: Denies: DM, hypothyroidism, steroids, other HEENT: Denies: cataract (L), cataract (R), glaucoma, KAW (L), KAW (R), other Hematology/Immune: Reports: anemia, other - GI bleed; Denies: DVT, bleeding disorder Musculoskeletal/Integumentary: Denies: OA, RA, DJD, DDD, edema, other PMH Narrative: # Anemia rule out underlying gi bleed # NSTEMI (non-ST elevated myocardial infarction) with trop elevation - # HIRO (acute kidney injury) --> cr 1.8-->1.5 # Hyponatremia/Hypokalemoa # Respiratory failure s/p trach # PNA on cxr # Dysphagia s/p peg Anesthesia Pre-op Phys. Exam Physician Exam Last Vital Signs Date Time Temp Pulse Resp B/P (MAP) Pulse Ox O2 Delivery O2 Flow Rate FiO2 05/11/20 06:47 98.1 05/11/20 04:32 101 19 35 05/11/20 04:00 Mechanical Ventilator 05/11/20 04:00 144/89 (107) 100 Constitutional: other - weak, demented Neurologic: other - dementia Cardiovascular: other - afib Respiratory: CTA Gastrointestinal: S/NT/ND Airway Exam Mallampati Score: Class III MO: limited ROM: limited Dentures: no upper, no lower Anesthesia Pre-op A/P Labs Hematology Test 05/11/20 02:50 White Blood Count 7.2 K/UL (4.8-10.8) Red Blood Count 2.74 M/UL (4.20-5.40) L Hemoglobin 8.1 G/DL (12.0-16.0) L Hematocrit 24.6 % (37.0-47.0) L Mean Corpuscular Volume 90 FL (80-99) Mean Corpuscular Hemoglobin 29.7 PG (27.0-31.0) Mean Corpuscular Hemoglobin Concent 33.0 G/DL (32.0-36.0) Red Cell Distribution Width 12.9 % (11.6-14.8) Platelet Count 167 K/UL (150-450) Mean Platelet Volume 6.9 FL (6.5-10.1) Neutrophils (%) (Auto) % (45.0-75.0) Lymphocytes (%) (Auto) % (20.0-45.0) Monocytes (%) (Auto) % (1.0-10.0) Eosinophils (%) (Auto) % (0.0-3.0) Basophils (%) (Auto) % (0.0-2.0) Neutrophils % (Manual) Pending Lymphocytes % (Manual) Pending Platelet Estimate Pending Platelet Morphology Pending Chemistry Test 05/11/20 02:50 Sodium Level 137 MMOL/L (136-145) Potassium Level 3.4 MMOL/L (3.5-5.1) L Chloride Level 102 MMOL/L (98-107) Carbon Dioxide Level 26 MMOL/L (21-32) Anion Gap 9 mmol/L (5-15) Blood Urea Nitrogen 62 mg/dL (7-18) H Creatinine 1.2 MG/DL (0.55-1.30) Estimat Glomerular Filtration Rate 42.5 mL/min (>60) Glucose Level 117 MG/DL (74-106) H Calcium Level 7.4 MG/DL (8.5-10.1) L Phosphorus Level 2.7 MG/DL (2.5-4.9) Magnesium Level 2.1 MG/DL (1.8-2.4) Total Bilirubin 1.0 MG/DL (0.2-1.0) Aspartate Amino Transf (AST/SGOT) 46 U/L (15-37) H Alanine Aminotransferase (ALT/SGPT) 47 U/L (12-78) Alkaline Phosphatase 164 U/L (46-116) H Total Protein 5.2 G/DL (6.4-8.2) L Albumin 2.3 G/DL (3.4-5.0) L Globulin 2.9 g/dL Albumin/Globulin Ratio 0.8 (1.0-2.7) L Cortisol AM Sample Pending Studies Pre-op Studies: EKG - Afib Risk Assessment & Plan Assessment: covid neg Plan: MAC Status Change Before Surgery: No Pre-Antibiotics Drug: none Colleen Dasilva CRNA May 11, 2020 07:12
[2020-05-11] MEDS ORDERED: Omnipaque-300 100ml vial INJ PRN (07:15)
--- NOTE | 2020-05-11 07:22 | NUR ---
NURSE HAND-OFF REPORT: Important Events on Shift:none Patient Status: stable Diet: NPO Pending Orders: Pending Results/Labs: Pending MD notification: Latest Vital Signs: Temperature 98.1 , Pulse 77 , B/P 144 /89 , Respiratory Rate 16 , O2 SAT 100 , Mechanical Ventilator, O2 Flow Rate . Vital Sign Comment: EKG Rhythm: Atrial Fibrillation Rhythm change?: N MD Notified?: N - MD Response: Latest [place] Fall Score: 70 Fall Risk: High Risk Safety Measures: Call light Within Reach, Bed Alarm Zone 1, Side Rails Side Rails x3, Bed position Low and Locked. Fall Precautions: Yellow Socks Yellow Gown Patient Fall Education Report given to Reese Rn- aware to f/u on any abnormal am labs and EGD scheduled today.
--- NOTE | 2020-05-11 07:23 | NUR ---
NURSE NOTES: Pt received from ROSALINO Campbell in no acute distress. Pt noted obtunded, trache to vent, shiley 8 AC 10 TV 400 FiO2 35% Peep5. 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 Abd is round and soft with clamped GT noted- pt currently NPO. Dr Panchal and GI personnel currently at bedside preparing for EGD procedure. Quiñonez noted draining yellow urine. Skin alterations noted. Pt has a LH 22g IV running D5NS at 100 cc/hr and a RH 22g IV saline-locked. Potassium level noted today- will f/u w/ Dr Minor for replacement. Bed in lowest position, alarm on, side rails up x 3, call light within reach. Will continue to monitor.
[2020-05-11] MEDS ORDERED: NS 500ML IVPB ONE (07:55)
[2020-05-11 08:00] VITALS: BP 111/74
--- NOTE | 2020-05-11 08:06 | Pre-Procedure Note/Attestation ---
Pre-Procedure Note/Attestation Complete Prior to Procedure Planned Procedure: not applicable Procedure Narrative: egd Indications for Procedure Pre-Operative Diagnosis: gib Attestation I attest that I discussed the nature of the procedure; its benefits; risks and complications; and alternatives (and the risks and benefits of such alternatives ), prior to the procedure, with the patient (or the patient's legal employee representative). I attest that, if there was a reasonable possibility of needing a blood transfusion, the patient (or the patient's legal employee representative) was given the [facility] standardized written summary, pursuant to the [place] Ava Blood Safety Act ([place] Health and Safety Code # 1645, as amended). I attest that I re-evaluated the patient just prior to the surgery and that there has been no change in the patient's H&P, except as documented below: Jaylon Panchal MD May 11, 2020 08:06
--- NOTE | 2020-05-11 08:26 | Endoscopy Procedure Note ---
Endoscopy Procedure Note General Indication for Procedure: gib Procedures Performed: EGD Operative Findings/Diagnosis: gastritis Specimen: yes Pt Tolerated Procedure Well: Yes Estimated Blood Loss: none Anesthesia Anesthesiologist: juana Anesthesia: MAC Inserted Devices Implant(s) used?: No GI Core Measures 50 yrs or older w/o bx or poly: Not Applicable 10yrs. F/U recommended: Not Applicable Jaylon Panchal MD May 11, 2020 08:26
--- NOTE | 2020-05-11 08:49 | Immediate Post-Op Evaluation ---
Immediate Post-Op Evalulation Immediate Post-Op Evalulation Procedure: EGD Date of Evaluation: May 11, 2020 Time of Evaluation: 08:30 IV Fluids: 100 Blood Pressure Systolic: 125 Blood Pressure Diastolic: 70 Pulse Rate: 100 Respiratory Rate: 10 O2 Sat by Pulse Oximetry: 99 Nausea: No Vomiting: No Patient Status: reacts, patent, ventilated Hydration Status: adequate Drug: none Colleen Dasilva CRNA May 11, 2020 08:49
[2020-05-11] MEDS: Docusate 100mg/10ml Liq NG SCH ×2 (09:13→17:50)
[2020-05-11] MEDS: Sucralfate 1gm tab GT SCH ×4 (09:13→20:14)
[2020-05-11] MEDS: Meropenem 500mg in NS 55ml IVPB SCH ×2 (09:13→20:13)
[2020-05-11] MEDS: Pantoprazole Inj IVP SCH ×2 (09:13→20:14)
--- NOTE | 2020-05-11 09:14 | Procedure Note ---
DATE OF PROCEDURE: 05/11/2020 SURGEON: Jaylon Panchal MD. PROCEDURE: Upper endoscopy with biopsy. ANESTHESIA: Per LABORATORY MACHINIST, Colleen Tarrillion. INSTRUMENT: Olympus adult flexible upper endoscope. INDICATION: GI bleeding. REASON FOR PROCEDURE: The procedure, risks, benefits, and possible consequences, including hemorrhage, aspiration, perforation and infection, and alternative treatments, were explained to the patient/legal guardian by Dr. Jaylon Panchal and the patient/legal guardian understood and accepted these risks. PROCEDURE IN DETAIL: After informed consent was obtained and the patient was adequately sedated, Olympus upper endoscope was advanced from mouth into the second portion of the duodenum and retroflexion was performed in the stomach. The patient has evidence of diffuse gastritis. Random biopsy from antrum was obtained to rule out H. pylori infection. Otherwise, the rest of upper endoscopic examination grossly looked within normal limits. No evidence of any ulceration. No evidence of any active bleeding. At this time, the scope was gradually removed and terminated. SUMMARY OF FINDINGS: Gastritis, otherwise normal upper endoscopic examination. RECOMMENDATIONS: Follow biopsy results and treat accordingly. Jaylon Panchal M.D. DR: NANCIE JOB#: [id number] CC:
--- NOTE | 2020-05-11 10:00 | NUR ---
NURSE NOTES: Spoke with Dr Parry- received order for venous duplex to bilateral lwoer extremities to r/o DVT- OK to place pt on SCDs if venous duplex results are negative.
[2020-05-11] MEDS: Ampicillin 2 GM in NS 110 ML IVPB SCH ×2 (10:06→17:38)
--- NOTE | 2020-05-11 10:11 | 48 Hour Post Anesthesia Eval ---
Post Anesthesia Evaluation Procedure: EGD Date of Evaluation: May 11, 2020 Time of Evaluation: 10:10 Blood Pressure Systolic: 135 0: 70 Pulse Rate: 98 Respiratory Rate: 14 O2 Sat by Pulse Oximetry: 98 Airway: other - Mech Ventilated with trach Nausea: No Vomiting: No Hydration Status: adequate Cardiopulmonary Status: stable Mental Status/LOC: patient returned to baseline Post-Anesthesia Complications: none Follow-up care needed: N/A Colleen Dasilva CRNA May 11, 2020 10:11
--- NOTE | 2020-05-11 11:00 | NUR ---
NURSE NOTES: Spoke to Dr Snyder regarding CT scan scheduled for today- per Dr Snyder, OK to reschedule ABD CT Scan after colonoscopy procedure tomorrow (if colonoscopy results are normal)- Eddie from CT dept notified.
--- NOTE | 2020-05-11 11:52 | Pulmonolgy Critical Care Note ---
Critical Care - Asmt/Plan Problems: (1) ICH (intracerebral hemorrhage) (2) Chronic vegetative state (3) Feeding by G-tube (4) Chronic respiratory failure (5) Hyponatremia Respiratory: monitor respiratory rate, adjust FIO2, CXR Cardiac: continue pressors, continue to monitor HR/BP Renal: F/U I&O, keep IV fluid, check electrolytes Gastrointestinal: continue feedings/current rate Endocrine: monitor blood sugar, continue sliding scale insulin Hematologic: monitor H/H, transfuse if hgb<8.5 Neurologic: PRN Ativan, keep patient comfortable Affect: PRN ativan Prophylaxis: Heparin Time Spent (Minutes): 40 Notes Reviewed: cardio, renal Discussed with: nurses, consultants, 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 - Objective Last 24 Hour Vital Signs Date Time Temp Pulse Resp B/P (MAP) Pulse Ox O2 Delivery O2 Flow Rate FiO2 05/11/20 10:44 84 16 35 05/11/20 10:11 98 14 98 05/11/20 08:54 86 21 35 05/11/20 08:49 100 10 99 05/11/20 08:00 35 05/11/20 08:00 98.0 98 18 111/74 (86) 100 05/11/20 07:56 90 05/11/20 07:08 77 16 35 05/11/20 06:47 98.1 05/11/20 04:40 98.9 05/11/20 04:32 101 19 35 05/11/20 04:00 35 05/11/20 04:00 Mechanical Ventilator 05/11/20 04:00 99.6 113 20 144/89 (107) 100 05/11/20 03:35 104 05/11/20 02:35 71 27 35 05/11/20 00:33 122 25 35 05/11/20 00:00 35 05/11/20 00:00 98.2 112 22 131/82 (98) 99 05/11/20 00:00 Mechanical Ventilator 05/10/20 23:33 101 05/10/20 22:51 110 22 35 05/10/20 21:07 96 17 35 05/10/20 20:00 Mechanical Ventilator 05/10/20 20:00 98.6 99 18 143/78 (99) 100 05/10/20 20:00 35 05/10/20 19:24 91 05/10/20 18:30 120 19 35 05/10/20 17:00 118 18 35 05/10/20 16:00 Mechanical Ventilator 05/10/20 16:00 98.0 98 19 115/61 (79) 100 05/10/20 16:00 35 05/10/20 16:00 105 05/10/20 15:16 122 21 35 05/10/20 13:20 73 19 35 05/10/20 12:00 98.0 104 19 115/70 (85) 100 05/10/20 12:00 Mechanical Ventilator 05/10/20 12:00 94 05/10/20 12:00 35 Status: sedated Condition: critical HEENT: atraumatic, normocephalic Lungs: clear Heart: HR/BP stable Abdomen: soft, non-tender Extremities: no C/C/E Decubiti: location Micro: Microbiology Date/Time Source Procedure Growth Status 05/08/20 12:15 Blood Blood Culture - Preliminary YEAST Resulted 05/08/20 12:00 Blood Blood Culture - Final Enterococcus Faecalis Complete 05/09/20 09:05 Nasopharynx SARS-CoV-2 RdRp Gene Assay - Final Complete 05/08/20 12:00 Nasal Nares MRSA Culture - Final NO METHICILLIN RESISTANT STAPH AUREUS... Complete 05/09/20 15:00 Stool Clostridium difficile Toxin Assay - Final Complete 05/08/20 12:00 Rectum - Final NO CARBAPENEM-RESISTANT ENTEROBACTERI... Complete 05/08/20 12:00 Rectum VRE Culture - Final Enterococcus Faecium - Vre Complete Critical Care - Subjective ROS Limited/Unobtainable: Yes Condition: critical EKG Rhythm: Sinus Rhythm FI02: 35 Vent Support Breath Rate: 10 Vent Support Mode: AC Vent Tidal Volume: 400 Sputum Amount: Small PEEP: 5.0 PIP: 33 I&O: Intake and Output 05/10/20 05/11/20 19:00 07:00 Intake Total 1890.0 ml 1689 ml Output Total 800 ml 550 ml Balance 1090.0 ml 1139 ml IV Total 1690.0 ml 1689 ml Other 200 ml Output Urine Total 800 ml 550 ml # Bowel Movements 2 4 CXR: worsening infiltrate and /or edema Labs: Laboratory Tests Test 05/11/20 02:50 05/11/20 09:30 White Blood Count 7.2 K/UL (4.8-10.8) Red Blood Count 2.74 M/UL (4.20-5.40) L Hemoglobin 8.1 G/DL (12.0-16.0) L Hematocrit 24.6 % (37.0-47.0) L Mean Corpuscular Volume 90 FL (80-99) Mean Corpuscular Hemoglobin 29.7 PG (27.0-31.0) Mean Corpuscular Hemoglobin Concent 33.0 G/DL (32.0-36.0) Red Cell Distribution Width 12.9 % (11.6-14.8) Platelet Count 167 K/UL (150-450) Mean Platelet Volume 6.9 FL (6.5-10.1) Neutrophils (%) (Auto) % (45.0-75.0) Lymphocytes (%) (Auto) % (20.0-45.0) Monocytes (%) (Auto) % (1.0-10.0) Eosinophils (%) (Auto) % (0.0-3.0) Basophils (%) (Auto) % (0.0-2.0) Differential Total Cells Counted 100 Neutrophils % (Manual) 87 % (45-75) H Lymphocytes % (Manual) 4 % (20-45) L Monocytes % (Manual) 7 % (1-10) Eosinophils % (Manual) 1 % (0-3) Basophils % (Manual) 1 % (0-2) Band Neutrophils 0 % (0-8) Platelet Estimate Adequate Platelet Morphology Normal Hypochromasia 1+ Sodium Level 137 MMOL/L (136-145) Potassium Level 3.4 MMOL/L (3.5-5.1) L Chloride Level 102 MMOL/L (98-107) Carbon Dioxide Level 26 MMOL/L (21-32) Anion Gap 9 mmol/L (5-15) Blood Urea Nitrogen 62 mg/dL (7-18) H Creatinine 1.2 MG/DL (0.55-1.30) Estimat Glomerular Filtration Rate 42.5 mL/min (>60) Glucose Level 117 MG/DL (74-106) H Calcium Level 7.4 MG/DL (8.5-10.1) L Phosphorus Level 2.7 MG/DL (2.5-4.9) Magnesium Level 2.1 MG/DL (1.8-2.4) Total Bilirubin 1.0 MG/DL (0.2-1.0) Aspartate Amino Transf (AST/SGOT) 46 U/L (15-37) H Alanine Aminotransferase (ALT/SGPT) 47 U/L (12-78) Alkaline Phosphatase 164 U/L (46-116) H Total Protein 5.2 G/DL (6.4-8.2) L Albumin 2.3 G/DL (3.4-5.0) L Globulin 2.9 g/dL Albumin/Globulin Ratio 0.8 (1.0-2.7) L Cortisol AM Sample Pending Stool Occult Blood Pending Chadwick Parry MD May 11, 2020 11:52
[2020-05-11 12:00] VITALS: BP 134/83
--- NOTE | 2020-05-11 13:01 | Surgery Progress Note ---
Surgery Progress Note Subjective Additional Comments scope today gastritis confused comfortable appearing no n/v/f Objective Last 24 Hour Vital Signs Date Time Temp Pulse Resp B/P (MAP) Pulse Ox O2 Delivery O2 Flow Rate FiO2 05/11/20 12:00 35 05/11/20 12:00 79 05/11/20 12:00 97.5 91 17 134/83 (100) 100 05/11/20 10:44 84 16 35 05/11/20 10:11 98 14 98 05/11/20 08:54 86 21 35 05/11/20 08:49 100 10 99 05/11/20 08:00 35 05/11/20 08:00 98.0 98 18 111/74 (86) 100 05/11/20 07:56 90 05/11/20 07:08 77 16 35 05/11/20 06:47 98.1 05/11/20 04:40 98.9 05/11/20 04:32 101 19 35 05/11/20 04:00 35 05/11/20 04:00 Mechanical Ventilator 05/11/20 04:00 99.6 113 20 144/89 (107) 100 05/11/20 03:35 104 05/11/20 02:35 71 27 35 05/11/20 00:33 122 25 35 05/11/20 00:00 35 05/11/20 00:00 98.2 112 22 131/82 (98) 99 05/11/20 00:00 Mechanical Ventilator 05/10/20 23:33 101 05/10/20 22:51 110 22 35 05/10/20 21:07 96 17 35 05/10/20 20:00 Mechanical Ventilator 05/10/20 20:00 98.6 99 18 143/78 (99) 100 05/10/20 20:00 35 05/10/20 19:24 91 05/10/20 18:30 120 19 35 05/10/20 17:00 118 18 35 05/10/20 16:00 Mechanical Ventilator 05/10/20 16:00 98.0 98 19 115/61 (79) 100 05/10/20 16:00 35 05/10/20 16:00 105 05/10/20 15:16 122 21 35 05/10/20 13:20 73 19 35 I&O Intake and Output 05/10/20 05/11/20 19:00 07:00 Intake Total 1890.0 ml 1789 ml Output Total 800 ml 550 ml Balance 1090.0 ml 1239 ml IV Total 1690.0 ml 1789 ml Other 200 ml Output Urine Total 800 ml 550 ml # Bowel Movements 2 4 Dressing: other Wound: other Cardiovascular: RSR Respiratory: decreased breath sounds Abdomen: soft, non-tender, present bowel sounds Extremities: no tenderness, no cyanosis Laboratory Tests Test 05/11/20 02:50 05/11/20 09:30 White Blood Count 7.2 K/UL (4.8-10.8) Red Blood Count 2.74 M/UL (4.20-5.40) L Hemoglobin 8.1 G/DL (12.0-16.0) L Hematocrit 24.6 % (37.0-47.0) L Mean Corpuscular Volume 90 FL (80-99) Mean Corpuscular Hemoglobin 29.7 PG (27.0-31.0) Mean Corpuscular Hemoglobin Concent 33.0 G/DL (32.0-36.0) Red Cell Distribution Width 12.9 % (11.6-14.8) Platelet Count 167 K/UL (150-450) Mean Platelet Volume 6.9 FL (6.5-10.1) Neutrophils (%) (Auto) % (45.0-75.0) Lymphocytes (%) (Auto) % (20.0-45.0) Monocytes (%) (Auto) % (1.0-10.0) Eosinophils (%) (Auto) % (0.0-3.0) Basophils (%) (Auto) % (0.0-2.0) Differential Total Cells Counted 100 Neutrophils % (Manual) 87 % (45-75) H Lymphocytes % (Manual) 4 % (20-45) L Monocytes % (Manual) 7 % (1-10) Eosinophils % (Manual) 1 % (0-3) Basophils % (Manual) 1 % (0-2) Band Neutrophils 0 % (0-8) Platelet Estimate Adequate Platelet Morphology Normal Hypochromasia 1+ Sodium Level 137 MMOL/L (136-145) Potassium Level 3.4 MMOL/L (3.5-5.1) L Chloride Level 102 MMOL/L (98-107) Carbon Dioxide Level 26 MMOL/L (21-32) Anion Gap 9 mmol/L (5-15) Blood Urea Nitrogen 62 mg/dL (7-18) H Creatinine 1.2 MG/DL (0.55-1.30) Estimat Glomerular Filtration Rate 42.5 mL/min (>60) Glucose Level 117 MG/DL (74-106) H Calcium Level 7.4 MG/DL (8.5-10.1) L Phosphorus Level 2.7 MG/DL (2.5-4.9) Magnesium Level 2.1 MG/DL (1.8-2.4) Total Bilirubin 1.0 MG/DL (0.2-1.0) Aspartate Amino Transf (AST/SGOT) 46 U/L (15-37) H Alanine Aminotransferase (ALT/SGPT) 47 U/L (12-78) Alkaline Phosphatase 164 U/L (46-116) H Total Protein 5.2 G/DL (6.4-8.2) L Albumin 2.3 G/DL (3.4-5.0) L Globulin 2.9 g/dL Albumin/Globulin Ratio 0.8 (1.0-2.7) L Cortisol AM Sample Pending Stool Occult Blood Pending Plan Problems: (1) Sepsis (2) Nosocomial pneumonia (3) Hyponatremia (4) UTI (urinary tract infection) (5) Hypotension (6) Chronic respiratory failure Assessment & Plan: 89F ill appearing trach on vent trach evaluated and 8f xlt noted sutures in place causing tension and breakdown sutures removed at bedside trach stoma evaluated and with breakdown. dressings applied trach in place and functional cont vent support will monitor and follow with recs thank you Pt presented on admission with Tracheostomy ,Generalized edema, Multiple Pressure injuries. DTPI that is de-capped L Scapula(L)3.4cmx (W)7.3cm. Base of wound is 90% slough 10% Loose purpuric base and edges. Surrounding non-blanching erythema. Inferior L scapula ,but in close proximity is DTPI (L)1.9cm x (W)4.4cm. Base of wound is purpuric with Maroon borders. Within close proximity to both wounds #3 linear purpuric areas that fans from scapula area outward towards thoracic spine. DTPI Sacrococcygeal to L Buttocks (L)7.4cm x (W)4.3cm.Base of wound is purpuric and indurated with surrounding non-blanching erythema. Two Partial thickness pressure injuries noted to L buttocks(Proximal)2.5cm x (W) 4.6cm. Base of wound is moist and viable.Surrounding Non-Blanching erythema.( Distal)1cm x (W)1cm. Base of wound is moist and viable.Surrounding Non- Blanching erythema. Perineal area is erythematous and moist . A purpuric area that is fluctuant noted at Perineum. Bilat lower ext are edematous. 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 A second smaller serous Bulla noted to dorso/lateral R foot (L)2cm x(W)2.2cm.Scattered small purpuric areas noted to heads of 2nd ,3rd,4th metatarsals. Multiple purpuric areas noted to distal/lateral L tibia and L foot. Elongated Purpuric Area with Marginal erythema along edges noted to distal/ Lateral L tibia(L)7cm x (W)1.8cm. L Heel /L Foot is an irregular shaped Purpuric area with marginal erythema without fluctuance/induration (L)3cm x (W)9.5cm. L Lateral Malleolus DTPI(L)1.5cm x (W)1.9cm.. Base of injury is fluctuant, purpuric with Maroon borders. DTPI distal/lateral L foot (L)1.5cm x (W)1.5cm. Base of injury is maroon with fluctuance. L Heel is boggy with non-blanchable erythema. Tx.Plan: Cleanse wound L Scapula with Saline. Apply Therahoney. Apply Cavilon Skin Barrier Periwound. Cover with Optifoam Drsg every 3 days and prn. Apply Cavilon Skin Barrier to Purpuric areas L Scapula. Cover with Optifoam drsg every 3 days and prn. Apply Moisture Barrier Paste to Sacrum and L Buttocks. Cover each site with Optifoam drsgs. Change every 3 days and PRN. Apply Cavilon Skin Barrier [place] to Blisters R foot. Cover with ABD Pads and wrap with Kerlix every 3 days and prn. Apply Cavilon Barrier [place] To Purpuric areas Distal L tibia and L foot. Cover with ABD Pads and wrap with Kerlix every 3 days and prn. Reposition at least every 2hors or as tolerated . Off-load heels with Pillow. Place Pillow between knees. APM/CAILIN Mattress. (7) Anemia (8) NSTEMI (non-ST elevated myocardial infarction) (9) Feeding by G-tube Assessment & Plan: DAILY ESTIMATED NEEDS: Needs based on wound, critical care 47.5kg abw 25-30 kcals/kg [id number] total kcals 1.25-2 g protein/kg 59-95 g total protein 25-30ml/kcal mL/kg 7587-0311 total fluid mLs NUTRITION DIAGNOSIS: Swallowing difficulty r/t respiratory status as evidenced by pt is trach and peg dep. CURRENT TF: NPO for EGD ENTERAL NUTRITION RECOMMENDATIONS: Osmolite 1.2 goal of 45ml/hr x24 hrs + Prosource 1 pack daily to provide 1080ml, 1296 kcal, 60g + 11g pro, 886ml free H2O - As medically able, start Osmolite low fiber TF @low rate 25ml/hr for 6 hrs. - Advance as tolerated 10ml/hr q4-6 hrs to goal - Flush per MD/ HOB over 30 degrees - Add Prosource 1 pack daily to better meet est pro needs. ADDITIONAL RECOMMENDATIONS: 1) F/up w/ WC eval, add GOLDIE BID w/ TF order 2) Per SNF : 4'8" (56 inches) and 142 lbs/64.55kg 3) Monitor renal function, lytes; need for renal TF formula 4) Monitor BG and need for carb control formula -> rec accuchecks + niss (10) HIRO (acute kidney injury) (11) Chronic vegetative state (12) ICH (intracerebral hemorrhage) Vickey Galvez May 11, 2020 13:01
--- NOTE | 2020-05-11 13:20 | Cardiac Electrophysiology PN ---
Assessment/Plan Assessment/Plan 1. Non-ST elevation myocardial infarction with troponin of 3.2, down to 2 and 1.9. Due to demand ischemia in view hemoglobin of only 6 as well as renal failure. Her EKG shows sinus rhythm with nonspecific ST-T wave abnormality and no ST elevation. 2. Volume overload. BNP of 19,000 as well as 4+ edema. However, the patient is likely intravascularly depleted as her BUN is 112 and creatinine 1.8. Improved to 62/1.2. Fu by Dr. Minor. 3. Severe hyponatremia, sodium 125. 4. S/P Septic shock with lactic acidosis and Hb 6. Got PRBC and is on IV antibiotic per ID. S/P EGD. Colonscopy in am pending 5. 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 6. Dysphagia, status post PEG placement. 7. Acute renal failure. CLARIBEL RN and Dr Kauffman Subjective Subjective Remained in atrial fib in 70s.Had rachel down to 30s and tachy episodes as well. On 35% Fio2 on Vent via Trach. EGD today was negative. Colonoscopy now pending tomorrow Objective Last 24 Hour Vital Signs Date Time Temp Pulse Resp B/P (MAP) Pulse Ox O2 Delivery O2 Flow Rate FiO2 05/11/20 13:05 122 26 35 05/11/20 12:00 35 05/11/20 12:00 79 05/11/20 12:00 97.5 91 17 134/83 (100) 100 05/11/20 10:44 84 16 35 05/11/20 10:11 98 14 98 05/11/20 08:54 86 21 35 05/11/20 08:49 100 10 99 05/11/20 08:00 35 05/11/20 08:00 98.0 98 18 111/74 (86) 100 05/11/20 07:56 90 05/11/20 07:08 77 16 35 05/11/20 06:47 98.1 05/11/20 04:40 98.9 05/11/20 04:32 101 19 35 05/11/20 04:00 35 05/11/20 04:00 Mechanical Ventilator 05/11/20 04:00 99.6 113 20 144/89 (107) 100 05/11/20 03:35 104 05/11/20 02:35 71 27 35 05/11/20 00:33 122 25 35 05/11/20 00:00 35 05/11/20 00:00 98.2 112 22 131/82 (98) 99 05/11/20 00:00 Mechanical Ventilator 05/10/20 23:33 101 05/10/20 22:51 110 22 35 05/10/20 21:07 96 17 35 05/10/20 20:00 Mechanical Ventilator 05/10/20 20:00 98.6 99 18 143/78 (99) 100 05/10/20 20:00 35 05/10/20 19:24 91 05/10/20 18:30 120 19 35 05/10/20 17:00 118 18 35 05/10/20 16:00 Mechanical Ventilator 05/10/20 16:00 98.0 98 19 115/61 (79) 100 05/10/20 16:00 35 05/10/20 16:00 105 05/10/20 15:16 122 21 35 05/10/20 13:20 73 19 35 Intake and Output 05/10/20 05/11/20 19:00 07:00 Intake Total 1890.0 ml 1789 ml Output Total 800 ml 550 ml Balance 1090.0 ml 1239 ml IV Total 1690.0 ml 1789 ml Other 200 ml Output Urine Total 800 ml 550 ml # Bowel Movements 2 4 Laboratory Tests Test 05/11/20 02:50 05/11/20 09:30 White Blood Count 7.2 K/UL (4.8-10.8) Red Blood Count 2.74 M/UL (4.20-5.40) L Hemoglobin 8.1 G/DL (12.0-16.0) L Hematocrit 24.6 % (37.0-47.0) L Mean Corpuscular Volume 90 FL (80-99) Mean Corpuscular Hemoglobin 29.7 PG (27.0-31.0) Mean Corpuscular Hemoglobin Concent 33.0 G/DL (32.0-36.0) Red Cell Distribution Width 12.9 % (11.6-14.8) Platelet Count 167 K/UL (150-450) Mean Platelet Volume 6.9 FL (6.5-10.1) Neutrophils (%) (Auto) % (45.0-75.0) Lymphocytes (%) (Auto) % (20.0-45.0) Monocytes (%) (Auto) % (1.0-10.0) Eosinophils (%) (Auto) % (0.0-3.0) Basophils (%) (Auto) % (0.0-2.0) Differential Total Cells Counted 100 Neutrophils % (Manual) 87 % (45-75) H Lymphocytes % (Manual) 4 % (20-45) L Monocytes % (Manual) 7 % (1-10) Eosinophils % (Manual) 1 % (0-3) Basophils % (Manual) 1 % (0-2) Band Neutrophils 0 % (0-8) Platelet Estimate Adequate Platelet Morphology Normal Hypochromasia 1+ Sodium Level 137 MMOL/L (136-145) Potassium Level 3.4 MMOL/L (3.5-5.1) L Chloride Level 102 MMOL/L (98-107) Carbon Dioxide Level 26 MMOL/L (21-32) Anion Gap 9 mmol/L (5-15) Blood Urea Nitrogen 62 mg/dL (7-18) H Creatinine 1.2 MG/DL (0.55-1.30) Estimat Glomerular Filtration Rate 42.5 mL/min (>60) Glucose Level 117 MG/DL (74-106) H Calcium Level 7.4 MG/DL (8.5-10.1) L Phosphorus Level 2.7 MG/DL (2.5-4.9) Magnesium Level 2.1 MG/DL (1.8-2.4) Total Bilirubin 1.0 MG/DL (0.2-1.0) Aspartate Amino Transf (AST/SGOT) 46 U/L (15-37) H Alanine Aminotransferase (ALT/SGPT) 47 U/L (12-78) Alkaline Phosphatase 164 U/L (46-116) H Total Protein 5.2 G/DL (6.4-8.2) L Albumin 2.3 G/DL (3.4-5.0) L Globulin 2.9 g/dL Albumin/Globulin Ratio 0.8 (1.0-2.7) L Cortisol AM Sample Pending Stool Occult Blood Pending Microbiology Date/Time Source Procedure Growth Status 05/09/20 09:05 Nasopharynx SARS-CoV-2 RdRp Gene Assay - Final Complete 05/09/20 15:00 Stool Clostridium difficile Toxin Assay - Final Complete Objective HEAD AND NECK: Status post tracheostomy, which is fresh. LUNGS: Coarse rhonchi. CARDIOVASCULAR: Regular S1 and S2 with no gallop. ABDOMEN: Status post G-tube. EXTREMITIES: 3+ pitting edema. Renard Erickson MD May 11, 2020 13:20
--- NOTE | 2020-05-11 14:12 | Nephrology Progress Note ---
Assessment/Plan Problem List: (1) HIRO (acute kidney injury) (2) NSTEMI (non-ST elevated myocardial infarction) (3) Anemia (4) Chronic respiratory failure (5) Hypotension (6) Hyponatremia (7) ICH (intracerebral hemorrhage) (8) Sepsis Assessment Acute renal failure, mainly prerenal picture Non-STEMI: Troponin 2.1 Chronic ventilatory dependent respiratory failure, history of intracranial bleed Septic shock with lactic acidosis, possible UTI, possible pneumonia Severe hyponatremia Severe anemia, history of GI bleed Hypertension GERD Plan May 11: Labs reviewed. Serum creatinine normalized. Patient edematous. Will decrease IV fluid. Will give Lasix IV 20 mg daily. Potassium supplement. Continue to monitor renal parameters. Discussed with ROSALINO [place]. Hydrate Hold BP medications, blood pressure is low IV Protonix, Carafate Antibiotics per ID Monitor renal parameters and electrolytes Potassium supplement as needed Transfusion as needed Per consultants Subjective ROS Limited/Unobtainable: Yes Objective Objective Last 24 Hour Vital Signs Date Time Temp Pulse Resp B/P (MAP) Pulse Ox O2 Delivery O2 Flow Rate FiO2 05/11/20 13:05 122 26 35 05/11/20 12:00 35 05/11/20 12:00 79 05/11/20 12:00 97.5 91 17 134/83 (100) 100 05/11/20 10:44 84 16 35 05/11/20 10:11 98 14 98 05/11/20 08:54 86 21 35 05/11/20 08:49 100 10 99 05/11/20 08:00 35 05/11/20 08:00 98.0 98 18 111/74 (86) 100 05/11/20 07:56 90 05/11/20 07:08 77 16 35 05/11/20 06:47 98.1 05/11/20 04:40 98.9 05/11/20 04:32 101 19 35 05/11/20 04:00 35 05/11/20 04:00 Mechanical Ventilator 05/11/20 04:00 99.6 113 20 144/89 (107) 100 05/11/20 03:35 104 05/11/20 02:35 71 27 35 05/11/20 00:33 122 25 35 05/11/20 00:00 35 05/11/20 00:00 98.2 112 22 131/82 (98) 99 05/11/20 00:00 Mechanical Ventilator 05/10/20 23:33 101 05/10/20 22:51 110 22 35 05/10/20 21:07 96 17 35 05/10/20 20:00 Mechanical Ventilator 05/10/20 20:00 98.6 99 18 143/78 (99) 100 05/10/20 20:00 35 05/10/20 19:24 91 05/10/20 18:30 120 19 35 05/10/20 17:00 118 18 35 05/10/20 16:00 Mechanical Ventilator 05/10/20 16:00 98.0 98 19 115/61 (79) 100 05/10/20 16:00 35 05/10/20 16:00 105 05/10/20 15:16 122 21 35 Intake and Output 05/10/20 05/11/20 19:00 07:00 Intake Total 1890.0 ml 1789 ml Output Total 800 ml 550 ml Balance 1090.0 ml 1239 ml IV Total 1690.0 ml 1789 ml Other 200 ml Output Urine Total 800 ml 550 ml # Bowel Movements 2 4 Laboratory Tests 05/11/20 02:50: White Blood Count 7.2, Red Blood Count 2.74L, Hemoglobin 8.1L, Hematocrit 24.6L , Mean Corpuscular Volume 90, Mean Corpuscular Hemoglobin 29.7, Mean Corpuscular Hemoglobin Concent 33.0, Red Cell Distribution Width 12.9, Platelet Count 167, Mean Platelet Volume 6.9, Neutrophils (%) (Auto) , Lymphocytes (%) ( Auto) , Monocytes (%) (Auto) , Eosinophils (%) (Auto) , Basophils (%) (Auto) , Differential Total Cells Counted 100, Neutrophils % (Manual) 87H, Lymphocytes % (Manual) 4L, Monocytes % (Manual) 7, Eosinophils % (Manual) 1, Basophils % ( Manual) 1, Band Neutrophils 0, Platelet Estimate Adequate, Platelet Morphology Normal, Hypochromasia 1+, Sodium Level 137, Potassium Level 3.4L, Chloride Level 102, Carbon Dioxide Level 26, Anion Gap 9, Blood Urea Nitrogen 62H, Creatinine 1.2, Estimat Glomerular Filtration Rate 42.5, Glucose Level 117H, Calcium Level 7.4L, Phosphorus Level 2.7, Magnesium Level 2.1, Total Bilirubin 1.0, Aspartate Amino Transf (AST/SGOT) 46H, Alanine Aminotransferase (ALT/SGPT) 47, Alkaline Phosphatase 164H, Total Protein 5.2L, Albumin 2.3L, Globulin 2.9, Albumin/Globulin Ratio 0.8L, Cortisol AM Sample [Pending] 05/11/20 09:30: Stool Occult Blood [Pending] Height (Feet): 5 Height (Inches): 2.00 Weight (Pounds): 155 General Appearance: no apparent distress, lethargic EENT: other - Trach to vent Cardiovascular: tachycardia Respiratory/Chest: decreased breath sounds Abdomen: distended Dov Minor MD May 11, 2020 14:12
[2020-05-11 16:00] VITALS: BP 120/96
[2020-05-11] MEDS ORDERED: Nulytely 4L ORAL SCH (16:00)
--- NOTE | 2020-05-11 16:00 | NUR ---
CASE MANAGEMENT: REVIEW SI: ANEMIA . HIRO . PNA T 97.5 HR 122 RR 26 BP 134/83 SAT 98% MECH VENT FIO2 35 WBC 8.1/24.6 K 3.4 BUN 62 IS: LASIX IV QD K-DUR 40MEQ MICAFUNGIN IV Q24HR MEROPENEM IV Q12HR PROTONIX IV Q12HR D5 NS IVF @ 100ML/HR COLONOSCOPY PENDING STEP DOWN UNIT DCP: PATIENT IS FROM [facility]
--- NOTE | 2020-05-11 16:16 | NUR ---
[facility] [phone]
--- NOTE | 2020-05-11 16:17 | Diagnostic Imaging Report ---
Indication: Shortness of breath. Bilateral lower extremity edema Technique: Grayscale and duplex images of the bilateral lower extremity veins Comparison: None Findings: Bilaterally, grayscale and duplex images demonstrate no evidence of intraluminal thrombus. Normal phasic Doppler waveforms, demonstrating normal augmentation response and no evidence of valvular insufficiency. Greater saphenous vein(s) and tibial veins are patent. Normal compressibility. Impression: Negative for evidence of lower extremity deep venous thrombosis bilaterally
--- NOTE | 2020-05-11 19:32 | NUR ---
NURSE HAND-OFF REPORT: Important Events on Shift: EGD performed today. Pt currently NPO pending colonoscopy procedure tomorrow morning- Bowel prep initiated. Potassium was replaced per Dr Minor. IVF rate was reduced d/t pitting edema. Patient Status: Pt is stable - no acute events occured today- Dr Erickson aware of cardiac rhythm (controlled Afib) - no pharmacological DVT prophylaxis at this time d/t active GI bleed (OBS +) - venous duplex results confirmed negative today - pt placed on SCDs to both lower extremities. Diet: currently NPO - will resume TF after colonoscopy tomorrow per Dr Panchal Pending Orders: ABD CT scheduled for tomorrow (if colonoscopy results are WNL) per Dr Snyder. Pending Results/Labs: Blood culture and 2nd OBS sent today. Pending MD notification: N Latest Vital Signs: Temperature 98.2 , Pulse 115 , B/P 120 /96 , Respiratory Rate 26 , O2 SAT 100 , Mechanical Ventilator (via trahce) , FiO2 35%. Vital Sign Comment: stable EKG Rhythm: Atrial Fibrillation Rhythm change?: N MD Notified?: Dr Erickson aware MD Response: n/a Latest [place] Fall Score: 70 Fall Risk: High Risk Safety Measures: Call light Within Reach, Bed Alarm Zone 1, Side Rails Side Rails x3, Bed position Low and Locked. Fall Precautions: Yellow Socks Yellow Gown Patient Fall Education Report given to ROSALINO Salomon.
--- NOTE | 2020-05-11 19:33 | NUR ---
NURSE NOTES: Received report from ROSALINO Padron. A/O x 0. Obtunded and unable to make needs known. s2 s3 heart sounds. EKG shows Afib with bpm of 134. Bilateral radial pulses bounding. +3 pitting edema on all bilateral extremities and >3 cap refill. Crackles heard throughout bilateral lower lobes upon auscultation. G-tube site intact with 20 mL residual. no drainage noted. abdomen distended and bowel prep initiated for colonoscopy tomorrow. Left and right hand IV intact. Quiñonez draining well to gravity. Bed left in lowest and locked position. bed alarm on and call light within reach. will continue monitoring. Addendum: 05/12/20 at 0150 by Debra Bautista RN NURSE NOTES: s1s2 heart sounds heart throughout APETM points. Pt in stable condition with no respiratory or cardiac distress.
[2020-05-11 20:00] VITALS: BP 136/89
[2020-05-11] MEDS: Micafungin 100 MG in NS 110 ML IVPB SCH (20:13)
[2020-05-12] VITALS (7 sets, daily range): BP systolic 116–157; BP diastolic 81–104
[2020-05-12] MEDS: Ampicillin 2 GM in NS 110 ML IVPB SCH ×3 (02:54→18:36)
[2020-05-12] MEDS: D5NS 1,000 ML IV SCH (02:55)
[2020-05-12 05:22] LABS: BASOPHILS % (AUTO) 0.8 % (0.0-2.0); EOSINOPHILS % (AUTO) 2.6 % (0.0-3.0); HEMATOCRIT 24.5 % (37.0-47.0); MEAN CORPUSCULAR VOLUME 90 FL (80-99); MONOCYTES % (AUTO) 4.5 % (1.0-10.0); NEUTROPHILS % (AUTO) 82.1 % (45.0-75.0); PLATELET COUNT 172 K/UL (150-450); RED BLOOD COUNT 2.72 M/UL (4.20-5.40); RED CELL DISTRIBUTION WIDTH 13.2 % (11.6-14.8); WHITE BLOOD COUNT 5.7 K/UL (4.8-10.8)
[2020-05-12 05:26] LABS: ANION GAP 6 mmol/L (5-15); BLOOD UREA NITROGEN 48 mg/dL (7-18); CALCIUM 7.6 MG/DL (8.5-10.1); CARBON DIOXIDE 25 MMOL/L (21-32); CHLORIDE 106 MMOL/L (98-107); POTASSIUM 3.5 MMOL/L (3.5-5.1); SODIUM 137 MMOL/L (136-145)
--- NOTE | 2020-05-12 06:47 | Infectious Diseases Prog Note ---
Assessment/Plan 89yo F with: Hypotension in setting of anemia to 6.0 Normal WBC Afebrile, Tmax 99.7 --> Febrile to 100.4 Fungemia 05/08 BCx +C.parapsilosis 05/08 TTE wo apparent vegetations 05/10 R fem CVC removed 05/11 BCx p 05/12 BCx p GPC Bacteremia 05/08 BCx 1/2 +E.faecalis (S-amp) MRSA nares neg Possible UTI 05/08 UA+, UCx >100k ESBL Kleb pna (R-levo @1) Possible pna, vent dependent via trach 05/08 CXR: Patchy opacities throughout the lungs which may represent pulmonary edema versus infectious/inflammatory process. Possible small pleural effusions. 05/08 COVID rapid Ag neg x1 05/09 COVID rapid Ag neg x1 Volume OL? 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 H/o GIB H/o ICH, now non-verbal, not interactive PMH: GIB, ICH, trach and vent dependent, HTN, GERD Plan: Cont ampicillin #2 (abx day #5/14) for E.faecalis bacteremia Cont micafungin #3 for fungemia, duration TBD pending repeat BCx Cont meropenem #3/3 (abx day #5/5) for ESBL Kleb in UCx - will stop tomorrow 05/11 SP vanco #1 05/10 SP Zosyn #2 ?Source of polymicrobial bacteremia/fungemia, likely gut source given organisms Going for colonoscopy today, if this is unremarkable then will need CT A/P w con to eval for source of bacteremia/fungemia F/u repeat BCx Ensure all lines removed, PIVs exchanged F/u BCx Trend HIRO, improving Monitor CBC/CMP Monitor resp status Monitor temp curve D/w RN Thank you for this consult. [facility] will continue to follow. Subjective Allergies: Coded Allergies: No Known Allergies (Unverified , 05/08/20) Tmax 100.4 Remains on vent, FiO2 35% satting 99% NAD Objective Last 24 Hour Vital Signs Date Time Temp Pulse Resp B/P (MAP) Pulse Ox O2 Delivery O2 Flow Rate FiO2 05/12/20 05:20 122 21 35 05/12/20 04:00 35 05/12/20 04:00 99 05/12/20 03:04 128 28 35 05/12/20 00:32 78 15 35 05/12/20 00:00 Mechanical Ventilator 05/12/20 00:00 80 05/12/20 00:00 98.1 100 18 141/81 (101) 100 05/11/20 23:11 111 21 35 05/11/20 21:08 109 21 35 05/11/20 20:44 99.9 05/11/20 20:00 102 05/11/20 20:00 35 05/11/20 20:00 Mechanical Ventilator 05/11/20 20:00 100.4 110 20 136/89 (105) 100 05/11/20 18:33 115 26 35 05/11/20 17:05 124 23 35 05/11/20 16:00 98.2 95 21 120/96 (104) 100 05/11/20 16:00 Mechanical Ventilator 05/11/20 16:00 95 05/11/20 16:00 35 05/11/20 15:15 70 19 35 05/11/20 13:05 122 26 35 05/11/20 12:00 35 05/11/20 12:00 79 05/11/20 12:00 Mechanical Ventilator 05/11/20 12:00 97.5 91 17 134/83 (100) 100 05/11/20 10:44 84 16 35 05/11/20 10:11 98 14 98 05/11/20 08:54 86 21 35 05/11/20 08:49 100 10 99 05/11/20 08:00 35 05/11/20 08:00 98.0 98 18 111/74 (86) 100 05/11/20 08:00 Mechanical Ventilator 05/11/20 07:56 90 05/11/20 07:08 77 16 35 05/11/20 06:47 98.1 Height (Feet): 5 Height (Inches): 1.00 Weight (Pounds): 155 Gen: Older woman, on vent, NAD HEENT: Trach CV: RRR Pulm: CTAB on vent Abd: Soft, NTND, +PEG Neuro: Non-responsive Lines: PIVs in BL hands Microbiology Date/Time Source Procedure Growth Status 05/09/20 09:05 Nasopharynx SARS-CoV-2 RdRp Gene Assay - Final Complete 05/09/20 15:00 Stool Clostridium difficile Toxin Assay - Final Complete Laboratory Tests Test 05/11/20 09:30 05/12/20 03:20 Stool Occult Blood Pending White Blood Count 5.7 K/UL (4.8-10.8) Red Blood Count 2.72 M/UL (4.20-5.40) L Hemoglobin 8.0 G/DL (12.0-16.0) L Hematocrit 24.5 % (37.0-47.0) L Mean Corpuscular Volume 90 FL (80-99) Mean Corpuscular Hemoglobin 29.5 PG (27.0-31.0) Mean Corpuscular Hemoglobin Concent 32.8 G/DL (32.0-36.0) Red Cell Distribution Width 13.2 % (11.6-14.8) Platelet Count 172 K/UL (150-450) Mean Platelet Volume 6.6 FL (6.5-10.1) Neutrophils (%) (Auto) 82.1 % (45.0-75.0) H Lymphocytes (%) (Auto) 10.0 % (20.0-45.0) L Monocytes (%) (Auto) 4.5 % (1.0-10.0) Eosinophils (%) (Auto) 2.6 % (0.0-3.0) Basophils (%) (Auto) 0.8 % (0.0-2.0) Sodium Level 137 MMOL/L (136-145) Potassium Level 3.5 MMOL/L (3.5-5.1) Chloride Level 106 MMOL/L (98-107) Carbon Dioxide Level 25 MMOL/L (21-32) Anion Gap 6 mmol/L (5-15) Blood Urea Nitrogen 48 mg/dL (7-18) H Creatinine 1.0 MG/DL (0.55-1.30) Estimat Glomerular Filtration Rate 52.5 mL/min (>60) Glucose Level 83 MG/DL (74-106) Calcium Level 7.6 MG/DL (8.5-10.1) L Current Medications Medications (Trade) Dose Ordered Sig/Sherie Route PRN Reason Start Time Stop Time Status Last Admin Dose Admin Acetaminophen (Tylenol) 650 mg Q6H PRN GT For Headache 8/17/20 20:30 06/08/20 20:29 05/11/20 20:14 Ampicillin 2 gm/ Sodium Chloride 110 ml @ 220 mls/hr Q8H IVPB 05/11/20 10:00 05/18/20 09:59 05/12/20 02:54 Barium Sulfate (Readi-Cat 2) 450 ml NOW PRN ORAL Radiology Procedure 05/11/20 07:15 05/13/20 07:07 Dextrose/Sodium Chloride 1,000 ml @ 50 mls/hr Q20H IV 05/11/20 11:00 06/07/20 10:59 05/12/20 02:55 Docusate Sodium (Colace) 100 mg TWICE A DAY NG 05/09/20 18:00 06/08/20 17:59 05/11/20 09:13 Furosemide (Lasix) 20 mg DAILY IV 05/12/20 09:00 06/11/20 08:59 Iohexol (OMNIPAQUE-300 100ml) 100 ml NOW PRN INJ Radiology Procedure 05/11/20 07:15 05/13/20 07:07 Meropenem 500 mg/ Sodium Chloride 55 ml @ 110 mls/hr EVERY 12 HOURS IVPB 05/10/20 13:00 05/15/20 12:59 05/11/20 20:13 Micafungin Sodium 100 mg/Sodium Chloride 110 ml @ 110 mls/hr Q24H IVPB 05/10/20 20:00 05/17/20 19:59 05/11/20 20:13 Pantoprazole (Protonix) 40 mg EVERY 12 HOURS IVP 05/08/20 21:00 06/07/20 20:59 05/11/20 20:14 Potassium Chloride (K-Dur) 40 meq TWICE A DAY GT 05/11/20 18:00 08/09/20 17:59 05/11/20 17:48 Sucralfate (Carafate) 1 gm FOUR TIMES A DAY GT 05/08/20 18:00 08/06/20 17:59 05/11/20 20:14 Ashley Snyder M.D. May 12, 2020 06:47
--- NOTE | 2020-05-12 06:55 | Hematology/Onc Progress Note ---
Assessment/Plan Assessment/Plan Assessment and Recs # Anemia rule out underlying gi bleed --> anemia panel has been ordered, esr, ferritin, tibc, occult --> s/p transfusion prbc 05/08 --> gi service if h/h downtrends --> triple lumen has been placed --> hgb 7.7-->8.1->8 # NSTEMI (non-ST elevated myocardial infarction) with trop elevation -> on bb, off asa --> seen by Dr. Erickson --> volume management as per cards/renal --> trop downtrended # HIRO (acute kidney injury) --> cr 1.8-->1.5-->1 # Hyponatremia/Hypokalemoa --> per renal recs # Respiratory failure s/p trach --> consulted pulm # PNA on cxr --> as per id recs --> ABX amp/micaf/elaine # Dysphagia s/p peg # Dvt ppx scds Appreciate store consultant care, will follow Subjective Constitutional: Denies: no symptoms, chills, fever, malaise, weakness, other HEENT: Denies: no symptoms, eye pain, blurred vision, tearing, double vision, ear pain, ear discharge, nose pain, nose congestion, throat pain, throat swelling, mouth pain, mouth swelling, other Cardiovascular: Denies: no symptoms, chest pain, edema, irregular heart rate, lightheadedness, palpitations, syncope, other Gastrointestinal/Abdominal: Denies: no symptoms, abdomen distended, abdominal pain, black stools, tarry stools, blood in stool, constipated, diarrhea, difficulty swallowing, nausea, poor appetite, poor fluid intake, rectal bleeding , vomiting, other Genitourinary: Denies: no symptoms, burning, discharge, frequency, flank pain, hematuria, incontinence, pain, urgency, other Neurologic/Psychiatric: Denies: no symptoms, anxiety, depressed, emotional problems, headache, numbness, paresthesia, pre-existing deficit, seizure, tingling, tremors, weakness, other Endocrine: Denies: no symptoms, excessive sweating, flushing, intolerance to cold, intolerance to heat, increased hunger, increased thirst, increased urine, unexplained weight gain, unexplained weight loss, other Hematologic/Lymphatic: Denies: no symptoms, anemia, easy bleeding, easy bruising, adenopathy, other Allergies: Coded Allergies: No Known Allergies (Unverified , 05/08/20) Subjective 05/10 remains obtunded, michelle rn, labs are noted, on vanc/zosyn, mild temp overnight 05/11 no bleeding or chills, on abx, remains confused, no night swaets 05/12 labs are noted, no bleeding, meds noted, cbc reviewed, no heoptysis Objective Objective Current Medications Medications (Trade) Dose Ordered Sig/Sherie Route PRN Reason Start Time Stop Time Status Last Admin Dose Admin Acetaminophen (Tylenol) 650 mg Q6H PRN GT For Headache 05/09/20 20:30 06/08/20 20:29 05/11/20 20:14 Ampicillin 2 gm/ Sodium Chloride 110 ml @ 220 mls/hr Q8H IVPB 05/11/20 10:00 05/18/20 09:59 05/12/20 02:54 Barium Sulfate (Readi-Cat 2) 450 ml NOW PRN ORAL Radiology Procedure 05/11/20 07:15 05/13/20 07:07 Dextrose/Sodium Chloride 1,000 ml @ 50 mls/hr Q20H IV 05/11/20 11:00 06/07/20 10:59 05/12/20 02:55 Docusate Sodium (Colace) 100 mg TWICE A DAY NG 05/09/20 18:00 06/08/20 17:59 05/11/20 09:13 Furosemide (Lasix) 20 mg DAILY IV 05/12/20 09:00 06/11/20 08:59 Iohexol (OMNIPAQUE-300 100ml) 100 ml NOW PRN INJ Radiology Procedure 05/11/20 07:15 05/13/20 07:07 Meropenem 500 mg/ Sodium Chloride 55 ml @ 110 mls/hr EVERY 12 HOURS IVPB 05/10/20 13:00 05/15/20 12:59 05/11/20 20:13 Micafungin Sodium 100 mg/Sodium Chloride 110 ml @ 110 mls/hr Q24H IVPB 05/10/20 20:00 05/17/20 19:59 05/11/20 20:13 Pantoprazole (Protonix) 40 mg EVERY 12 HOURS IVP 8/16/20 21:00 06/07/20 20:59 05/11/20 20:14 Potassium Chloride (K-Dur) 40 meq TWICE A DAY GT 05/11/20 18:00 08/09/20 17:59 05/11/20 17:48 Sucralfate (Carafate) 1 gm FOUR TIMES A DAY GT 05/08/20 18:00 08/06/20 17:59 05/11/20 20:14 Last 24 Hour Vital Signs Date Time Temp Pulse Resp B/P (MAP) Pulse Ox O2 Delivery O2 Flow Rate FiO2 05/12/20 05:20 122 21 35 05/12/20 04:00 35 05/12/20 04:00 99 05/12/20 03:04 128 28 35 05/12/20 00:32 78 15 35 05/12/20 00:00 Mechanical Ventilator 05/12/20 00:00 80 05/12/20 00:00 98.1 100 18 141/81 (101) 100 05/11/20 23:11 111 21 35 05/11/20 21:08 109 21 35 05/11/20 20:44 99.9 05/11/20 20:00 102 05/11/20 20:00 35 05/11/20 20:00 Mechanical Ventilator 05/11/20 20:00 100.4 110 20 136/89 (105) 100 05/11/20 18:33 115 26 35 05/11/20 17:05 124 23 35 05/11/20 16:00 98.2 95 21 120/96 (104) 100 05/11/20 16:00 Mechanical Ventilator 05/11/20 16:00 95 05/11/20 16:00 35 05/11/20 15:15 70 19 35 05/11/20 13:05 122 26 35 05/11/20 12:00 35 05/11/20 12:00 79 05/11/20 12:00 Mechanical Ventilator 05/11/20 12:00 97.5 91 17 134/83 (100) 100 05/11/20 10:44 84 16 35 05/11/20 10:11 98 14 98 05/11/20 08:54 86 21 35 05/11/20 08:49 100 10 99 05/11/20 08:00 35 05/11/20 08:00 98.0 98 18 111/74 (86) 100 05/11/20 08:00 Mechanical Ventilator 05/11/20 07:56 90 05/11/20 07:08 77 16 35 05/11/20 06:47 98.1 05/11/20 04:32 101 19 35 05/11/20 04:00 35 05/11/20 04:00 Mechanical Ventilator 05/11/20 04:00 99.6 113 20 144/89 (107) 100 05/11/20 03:35 104 05/11/20 02:35 71 27 35 05/11/20 00:33 122 25 35 05/11/20 00:00 35 05/11/20 00:00 98.2 112 22 131/82 (98) 99 05/11/20 00:00 Mechanical Ventilator 05/10/20 23:33 101 05/10/20 22:51 110 22 35 05/10/20 21:07 96 17 35 05/10/20 20:00 Mechanical Ventilator 05/10/20 20:00 98.6 99 18 143/78 (99) 100 05/10/20 20:00 35 05/10/20 19:24 91 05/10/20 18:30 120 19 35 05/10/20 17:00 118 18 35 05/10/20 16:00 Mechanical Ventilator 05/10/20 16:00 98.0 98 19 115/61 (79) 100 05/10/20 16:00 35 05/10/20 16:00 105 05/10/20 15:16 122 21 35 05/10/20 13:20 73 19 35 05/10/20 12:00 98.0 104 19 115/70 (85) 100 05/10/20 12:00 Mechanical Ventilator 05/10/20 12:00 94 05/10/20 12:00 35 05/10/20 10:30 120 19 35 05/10/20 09:00 94 17 35 05/10/20 08:00 35 05/10/20 08:00 Mechanical Ventilator 05/10/20 08:00 94 05/10/20 07:47 97.9 94 19 100/77 (85) 99 Intake and Output 05/11/20 05/12/20 19:00 07:00 Intake Total 1275 ml 409.2 ml Output Total 400 ml Balance 875 ml 409.2 ml IV Total 1275 ml 409.2 ml Output Urine Total 400 ml # Bowel Movements 6 2 Labs Test 05/09/20 15:00 05/10/20 02:50 05/11/20 02:50 05/11/20 09:30 Stool Occult Blood Positive (NEGATIVE) White Blood Count 6.8 K/UL (4.8-10.8) 7.2 K/UL (4.8-10.8) Red Blood Count 2.61 M/UL (4.20-5.40) 2.74 M/UL (4.20-5.40) Hemoglobin 7.7 G/DL (12.0-16.0) 8.1 G/DL (12.0-16.0) Hematocrit 23.1 % (37.0-47.0) 24.6 % (37.0-47.0) Mean Corpuscular Volume 89 FL (80-99) 90 FL (80-99) Mean Corpuscular Hemoglobin 29.6 PG (27.0-31.0) 29.7 PG (27.0-31.0) Mean Corpuscular Hemoglobin Concent 33.4 G/DL (32.0-36.0) 33.0 G/DL (32.0-36.0) Red Cell Distribution Width 12.8 % (11.6-14.8) 12.9 % (11.6-14.8) Platelet Count 155 K/UL (150-450) 167 K/UL (150-450) Mean Platelet Volume 8.1 FL (6.5-10.1) 6.9 FL (6.5-10.1) Neutrophils (%) (Auto) % (45.0-75.0) % (45.0-75.0) Lymphocytes (%) (Auto) % (20.0-45.0) % (20.0-45.0) Monocytes (%) (Auto) % (1.0-10.0) % (1.0-10.0) Eosinophils (%) (Auto) % (0.0-3.0) % (0.0-3.0) Basophils (%) (Auto) % (0.0-2.0) % (0.0-2.0) Sodium Level 132 MMOL/L (136-145) 137 MMOL/L (136-145) Potassium Level 3.2 MMOL/L (3.5-5.1) 3.4 MMOL/L (3.5-5.1) Chloride Level 98 MMOL/L (98-107) 102 MMOL/L (98-107) Carbon Dioxide Level 28 MMOL/L (21-32) 26 MMOL/L (21-32) Anion Gap 6 mmol/L (5-15) 9 mmol/L (5-15) Blood Urea Nitrogen 83 mg/dL (7-18) 62 mg/dL (7-18) Creatinine 1.4 MG/DL (0.55-1.30) 1.2 MG/DL (0.55-1.30) Estimat Glomerular Filtration Rate 35.5 mL/min (>60) 42.5 mL/min (>60) Glucose Level 118 MG/DL (74-106) 117 MG/DL (74-106) Calcium Level 7.1 MG/DL (8.5-10.1) 7.4 MG/DL (8.5-10.1) Phosphorus Level 3.5 MG/DL (2.5-4.9) 2.7 MG/DL (2.5-4.9) Magnesium Level 2.2 MG/DL (1.8-2.4) 2.1 MG/DL (1.8-2.4) Total Bilirubin 0.8 MG/DL (0.2-1.0) 1.0 MG/DL (0.2-1.0) Aspartate Amino Transf (AST/SGOT) 50 U/L (15-37) 46 U/L (15-37) Alanine Aminotransferase (ALT/SGPT) 45 U/L (12-78) 47 U/L (12-78) Alkaline Phosphatase 123 U/L (46-116) 164 U/L (46-116) C-Reactive Protein, Quantitative 6.7 mg/dL (0.00-0.90) Pro-B-Type Natriuretic Peptide 82954 pg/mL (0-125) Total Protein 4.7 G/DL (6.4-8.2) 5.2 G/DL (6.4-8.2) Albumin 1.9 G/DL (3.4-5.0) 2.3 G/DL (3.4-5.0) Globulin 2.8 g/dL 2.9 g/dL Albumin/Globulin Ratio 0.7 (1.0-2.7) 0.8 (1.0-2.7) Vitamin B12 Level 1289 PG/ML (193-986) Differential Total Cells Counted 100 Neutrophils % (Manual) 87 % (45-75) Lymphocytes % (Manual) 4 % (20-45) Monocytes % (Manual) 7 % (1-10) Eosinophils % (Manual) 1 % (0-3) Basophils % (Manual) 1 % (0-2) Band Neutrophils 0 % (0-8) Platelet Estimate Adequate Platelet Morphology Normal Hypochromasia 1+ Test 05/12/20 03:20 White Blood Count 5.7 K/UL (4.8-10.8) Red Blood Count 2.72 M/UL (4.20-5.40) Hemoglobin 8.0 G/DL (12.0-16.0) Hematocrit 24.5 % (37.0-47.0) Mean Corpuscular Volume 90 FL (80-99) Mean Corpuscular Hemoglobin 29.5 PG (27.0-31.0) Mean Corpuscular Hemoglobin Concent 32.8 G/DL (32.0-36.0) Red Cell Distribution Width 13.2 % (11.6-14.8) Platelet Count 172 K/UL (150-450) Mean Platelet Volume 6.6 FL (6.5-10.1) Neutrophils (%) (Auto) 82.1 % (45.0-75.0) Lymphocytes (%) (Auto) 10.0 % (20.0-45.0) Monocytes (%) (Auto) 4.5 % (1.0-10.0) Eosinophils (%) (Auto) 2.6 % (0.0-3.0) Basophils (%) (Auto) 0.8 % (0.0-2.0) Sodium Level 137 MMOL/L (136-145) Potassium Level 3.5 MMOL/L (3.5-5.1) Chloride Level 106 MMOL/L (98-107) Carbon Dioxide Level 25 MMOL/L (21-32) Anion Gap 6 mmol/L (5-15) Blood Urea Nitrogen 48 mg/dL (7-18) Creatinine 1.0 MG/DL (0.55-1.30) Estimat Glomerular Filtration Rate 52.5 mL/min (>60) Glucose Level 83 MG/DL (74-106) Calcium Level 7.6 MG/DL (8.5-10.1) Height (Feet): 5 Height (Inches): 1.00 Weight (Pounds): 155 Objective PE General: Obtunded, no spontaneous movement. No obvious distress HEENT: NC/AT. Neck: Tracheostomy appears appropriately placed Cardiovascular: RRR. S1 and S2 normal. No murmur appreciated Resp: Normal work of breathing. No cough Abdomen: Abdomen is soft, nondistended. Gastrostomy tube appears in appropriate position without surrounding signs of infection or trauma. Skin: Intact. No abrasions, laceration or rash over the exposed skin MSK: Normal tone and bulk. Neuro: Obtunded Willy Mustafa MD May 12, 2020 06:55
--- NOTE | 2020-05-12 07:30 | NUR ---
NURSE NOTES: Made aware of plan for abx CT, per Dr. Snyder, if colonoscopy is normal. Dr. Mustafa at nurses station; Clarified orders to transfuse 1 pRBC if Hgb <8.5. patient prepped for GI colonoscopy. x3 yellow-green liquid exuded after colon cleanse. Endorsed plan to day nurse.
--- NOTE | 2020-05-12 07:51 | NUR ---
NURSE HAND-OFF REPORT: Important Events on Shift: colon prep for colonoscopy in AM; possible CT abx Patient Status: Stable Diet: Npo Pending Orders: N Pending Results/Labs:N Pending notification:N Latest Vital Signs: Temperature 97.9 , Pulse 122 , B/P 116 /82 , Respiratory Rate 21 , O2 SAT 100 , Mechanical Ventilator, O2 Flow Rate . Vital Sign Comment: EKG Rhythm: Atrial Fibrillation with RVR with VC Rhythm change?: Y MD Notified?: Yes MD Response: Left message Latest [place] Fall Score: 70 Fall Risk: High Risk Safety Measures: Call light Within Reach, Bed Alarm Zone 1, Side Rails Side Rails x3, Bed position Low and Locked. Fall Precautions: Yellow Socks Yellow Gown Patient Fall Education Report given to ROSALINO Leigh.
--- NOTE | 2020-05-12 08:54 | Nephrology Progress Note ---
Assessment/Plan Problem List: (1) HIRO (acute kidney injury) (2) NSTEMI (non-ST elevated myocardial infarction) (3) Anemia (4) Chronic respiratory failure (5) Hypotension (6) Hyponatremia (7) ICH (intracerebral hemorrhage) (8) Sepsis Assessment Acute renal failure, mainly prerenal picture Non-STEMI: Troponin 2.1 Chronic ventilatory dependent respiratory failure, history of intracranial bleed Septic shock with lactic acidosis, possible UTI, possible pneumonia Severe hyponatremia Severe anemia, history of GI bleed Hypertension GERD Plan May 12: Lab reviewed. Serum creatinine normal. Patient on Lasix. Will stop IV fluid. Will monitor renal parameters and electrolytes. May 11: Labs reviewed. Serum creatinine normalized. Patient edematous. Will decrease IV fluid. Will give Lasix IV 20 mg daily. Potassium supplement. Continue to monitor renal parameters. Discussed with ROSALINO Park. Hydrate Hold BP medications, blood pressure is low IV Protonix, Carafate Antibiotics per ID Monitor renal parameters and electrolytes Potassium supplement as needed Transfusion as needed Per consultants Subjective ROS Limited/Unobtainable: Yes Objective Objective Last 24 Hour Vital Signs Date Time Temp Pulse Resp B/P (MAP) Pulse Ox O2 Delivery O2 Flow Rate FiO2 05/12/20 05:20 122 21 35 05/12/20 04:00 35 05/12/20 04:00 99 05/12/20 04:00 Mechanical Ventilator 05/12/20 04:00 97.9 114 18 116/82 (93) 100 05/12/20 03:04 128 28 35 05/12/20 00:32 78 15 35 05/12/20 00:00 Mechanical Ventilator 05/12/20 00:00 80 05/12/20 00:00 98.1 100 18 141/81 (101) 100 05/11/20 23:11 111 21 35 05/11/20 21:08 109 21 35 05/11/20 20:44 99.9 05/11/20 20:00 102 05/11/20 20:00 35 05/11/20 20:00 Mechanical Ventilator 05/11/20 20:00 100.4 110 20 136/89 (105) 100 05/11/20 18:33 115 26 35 05/11/20 17:05 124 23 35 05/11/20 16:00 98.2 95 21 120/96 (104) 100 05/11/20 16:00 Mechanical Ventilator 05/11/20 16:00 95 05/11/20 16:00 35 05/11/20 15:15 70 19 35 05/11/20 13:05 122 26 35 05/11/20 12:00 35 05/11/20 12:00 79 05/11/20 12:00 Mechanical Ventilator 05/11/20 12:00 97.5 91 17 134/83 (100) 100 05/11/20 10:44 84 16 35 05/11/20 10:11 98 14 98 05/11/20 08:54 86 21 35 Intake and Output 05/11/20 05/12/20 19:00 07:00 Intake Total 1275 ml 713.4 ml Output Total 400 ml 850 ml Balance 875 ml -136.6 ml IV Total 1275 ml 713.4 ml Output Urine Total 400 ml 850 ml # Bowel Movements 6 4 Laboratory Tests 05/11/20 09:30: Stool Occult Blood [Pending] 05/12/20 03:20: White Blood Count 5.7, Red Blood Count 2.72L, Hemoglobin 8.0L, Hematocrit 24.5L , Mean Corpuscular Volume 90, Mean Corpuscular Hemoglobin 29.5, Mean Corpuscular Hemoglobin Concent 32.8, Red Cell Distribution Width 13.2, Platelet Count 172, Mean Platelet Volume 6.6, Neutrophils (%) (Auto) 82.1H, Lymphocytes ( %) (Auto) 10.0L, Monocytes (%) (Auto) 4.5, Eosinophils (%) (Auto) 2.6, Basophils (%) (Auto) 0.8, Sodium Level 137, Potassium Level 3.5, Chloride Level 106, Carbon Dioxide Level 25, Anion Gap 6, Blood Urea Nitrogen 48H, Creatinine 1.0, Estimat Glomerular Filtration Rate 52.5, Glucose Level 83, Calcium Level 7.6L Height (Feet): 5 Height (Inches): 1.00 Weight (Pounds): 154 General Appearance: no apparent distress, lethargic EENT: other - Trach to vent Cardiovascular: tachycardia Respiratory/Chest: decreased breath sounds Abdomen: distended, other - PEG in place Dov Minor MD May 12, 2020 08:54
[2020-05-12] MEDS: Sucralfate 1gm tab GT SCH ×4 (09:00→21:26)
--- NOTE | 2020-05-12 09:02 | NUR ---
RD ASSESSMENT & RECOMMENDATIONS SEE CARE ACTIVITY FOR COMPLETE ASSESSMENT DAILY ESTIMATED NEEDS: Needs based on wound, critical care 47.5kg abw 25-30 kcals/kg 3561-0422 total kcals 1.25-2 g protein/kg 59-95 g total protein 25-30ml/kcal mL/kg 5735-0149 total fluid mLs NUTRITION DIAGNOSIS: Swallowing difficulty r/t respiratory status as evidenced by pt is trach and peg dep. CURRENT TF--->>> NPO for EGD, now for colonoscopy ENTERAL NUTRITION RECOMMENDATIONS: Osmolite 1.2 goal of 45ml/hr x24 hrs + Prosource 1 pack daily to provide 1080ml, 1296 kcal, 60g + 11g pro, 886ml free H2O - As medically able, start Osmolite low fiber TF @low rate 25ml/hr for 6 hrs. - Advance as tolerated 10ml/hr q4-6 hrs to goal - Flush per MD/ HOB over 30 degrees - Add Prosource 1 pack daily to better meet est pro needs. ADDITIONAL RECOMMENDATIONS: 1) Wound care: add GOLDIE BID w/ TF order + Vit C 250mg qdaily 2) Per SNF : 4'8" (56 inches) and 142 lbs/64.55kg 3) Monitor renal function, lytes; need for renal TF formula 4) Monitor BG and need for carb control formula -> rec accuchecks + niss
--- NOTE | 2020-05-12 09:13 | NUR ---
CASE MANAGEMENT: REVIEW 05/12/20 SI: ANEMIA . HIRO . PNA . TRACH 97.9 99 114 18 116/82 100% MECH VENT FIO2 35 H/H 8/24.5 BUN 48 CA+7.6 OB STOOL ~IN PROCESS OB STOOL + IS: LASIX IV QD IV AMPICILLIN TID IV MEROPENEM BID IV MYCAMINE QD K-DUR GT BID IV PROTONIX BID ~COLONOSCOPY TODAY \2w step down unit DCP:SHAGGY MENDENHALL WHEN STABLE
[2020-05-12] MEDS: Docusate 100mg/10ml Liq NG SCH ×2 (09:33→18:37)
[2020-05-12] MEDS: Pantoprazole Inj IVP SCH ×2 (09:34→21:26)
[2020-05-12] MEDS: Meropenem 500mg in NS 55ml IVPB SCH ×2 (10:03→21:28)
--- NOTE | 2020-05-12 10:48 | Pulmonolgy Critical Care Note ---
Critical Care - Asmt/Plan Problems: (1) ICH (intracerebral hemorrhage) (2) Chronic vegetative state (3) Feeding by G-tube (4) Chronic respiratory failure (5) Hyponatremia (6) Bacteremia (7) Fungemia Respiratory: monitor respiratory rate, adjust FIO2, CXR Cardiac: stop pressors, continue to monitor HR/BP Renal: F/U I&O, keep IV fluid, check electrolytes Infectious Disease: check cultures Gastrointestinal: continue feedings/current rate Endocrine: monitor blood sugar, continue sliding scale insulin Hematologic: monitor H/H Neurologic: PRN Ativan, PRN Morphine, keep patient comfortable Prophylaxis: Protonix Disposition: keep in ICU Time Spent (Minutes): 40 Notes Reviewed: cardio, renal Discussed with: nurses, consultants, case advocatesustainable products marketing manager - Objective Last 24 Hour Vital Signs Date Time Temp Pulse Resp B/P (MAP) Pulse Ox O2 Delivery O2 Flow Rate FiO2 05/12/20 05:20 122 21 35 05/12/20 04:00 35 05/12/20 04:00 99 05/12/20 04:00 Mechanical Ventilator 05/12/20 04:00 97.9 114 18 116/82 (93) 100 05/12/20 03:04 128 28 35 05/12/20 00:32 78 15 35 05/12/20 00:00 Mechanical Ventilator 05/12/20 00:00 80 05/12/20 00:00 98.1 100 18 141/81 (101) 100 05/11/20 23:11 111 21 35 05/11/20 21:08 109 21 35 05/11/20 20:44 99.9 05/11/20 20:00 102 05/11/20 20:00 35 05/11/20 20:00 Mechanical Ventilator 05/11/20 20:00 100.4 110 20 136/89 (105) 100 05/11/20 18:33 115 26 35 05/11/20 17:05 124 23 35 05/11/20 16:00 98.2 95 21 120/96 (104) 100 05/11/20 16:00 Mechanical Ventilator 05/11/20 16:00 95 05/11/20 16:00 35 05/11/20 15:15 70 19 35 05/11/20 13:05 122 26 35 05/11/20 12:00 35 05/11/20 12:00 79 05/11/20 12:00 Mechanical Ventilator 05/11/20 12:00 97.5 91 17 134/83 (100) 100 Status: awake Condition: grave Neck: full ROM Heart: HR/BP stable, HR/BP unstable Abdomen: soft, non-tender Extremities: no C/C/E Micro: Microbiology Date/Time Source Procedure Growth Status 05/09/20 15:00 Stool Clostridium difficile Toxin Assay - Final Complete Critical Care - Subjective FI02: 35 Vent Support Breath Rate: 10 Vent Support Mode: AC Vent Tidal Volume: 400 Sputum Amount: Small PEEP: 5.0 PIP: 25 I&O: Intake and Output 05/11/20 05/12/20 19:00 07:00 Intake Total 1275 ml 713.4 ml Output Total 400 ml 850 ml Balance 875 ml -136.6 ml IV Total 1275 ml 713.4 ml Output Urine Total 400 ml 850 ml # Bowel Movements 6 4 Labs: Laboratory Tests Test 05/12/20 03:20 White Blood Count 5.7 K/UL (4.8-10.8) Red Blood Count 2.72 M/UL (4.20-5.40) L Hemoglobin 8.0 G/DL (12.0-16.0) L Hematocrit 24.5 % (37.0-47.0) L Mean Corpuscular Volume 90 FL (80-99) Mean Corpuscular Hemoglobin 29.5 PG (27.0-31.0) Mean Corpuscular Hemoglobin Concent 32.8 G/DL (32.0-36.0) Red Cell Distribution Width 13.2 % (11.6-14.8) Platelet Count 172 K/UL (150-450) Mean Platelet Volume 6.6 FL (6.5-10.1) Neutrophils (%) (Auto) 82.1 % (45.0-75.0) H Lymphocytes (%) (Auto) 10.0 % (20.0-45.0) L Monocytes (%) (Auto) 4.5 % (1.0-10.0) Eosinophils (%) (Auto) 2.6 % (0.0-3.0) Basophils (%) (Auto) 0.8 % (0.0-2.0) Sodium Level 137 MMOL/L (136-145) Potassium Level 3.5 MMOL/L (3.5-5.1) Chloride Level 106 MMOL/L (98-107) Carbon Dioxide Level 25 MMOL/L (21-32) Anion Gap 6 mmol/L (5-15) Blood Urea Nitrogen 48 mg/dL (7-18) H Creatinine 1.0 MG/DL (0.55-1.30) Estimat Glomerular Filtration Rate 52.5 mL/min (>60) Glucose Level 83 MG/DL (74-106) Calcium Level 7.6 MG/DL (8.5-10.1) L Chadwick Parry MD May 12, 2020 10:48
--- NOTE | 2020-05-12 11:07 | General Progress Note ---
Assessment/Plan Problem List: (1) Feeding by G-tube ICD Codes: Z93.1 - Gastrostomy status SNOMED: 035383061, 445790563, 724791377 (2) Chronic respiratory failure ICD Codes: J96.10 - Chronic respiratory failure, unspecified whether with hypoxia or hypercapnia SNOMED: 70477129 (3) Hyponatremia ICD Codes: E87.1 - Hypo-osmolality and hyponatremia SNOMED: 31431234 (4) UTI (urinary tract infection) ICD Codes: N39.0 - Urinary tract infection, site not specified SNOMED: 64060348 (5) Hypotension ICD Codes: I95.9 - Hypotension, unspecified SNOMED: 51597820 (6) NSTEMI (non-ST elevated myocardial infarction) ICD Codes: I21.4 - Non-ST elevation (NSTEMI) myocardial infarction SNOMED: 34464108 (7) Anemia ICD Codes: D64.9 - Anemia, unspecified SNOMED: 419918964 (8) HIRO (acute kidney injury) ICD Codes: N17.9 - Acute kidney failure, unspecified SNOMED: 72237146, 3328903 Assessment/Plan: ppi abx per ID monitor H&H s/p EGD stool ob positive pending CT today plan for colonoscopy tomorrow Subjective ROS Limited/Unobtainable: No Allergies: Coded Allergies: No Known Allergies (Unverified , 05/08/20) Objective Last 24 Hour Vital Signs Date Time Temp Pulse Resp B/P (MAP) Pulse Ox O2 Delivery O2 Flow Rate FiO2 05/12/20 05:20 122 21 35 05/12/20 04:00 35 05/12/20 04:00 99 05/12/20 04:00 Mechanical Ventilator 05/12/20 04:00 97.9 114 18 116/82 (93) 100 05/12/20 03:04 128 28 35 05/12/20 00:32 78 15 35 05/12/20 00:00 Mechanical Ventilator 05/12/20 00:00 80 05/12/20 00:00 98.1 100 18 141/81 (101) 100 05/11/20 23:11 111 21 35 05/11/20 21:08 109 21 35 05/11/20 20:44 99.9 05/11/20 20:00 102 05/11/20 20:00 35 05/11/20 20:00 Mechanical Ventilator 05/11/20 20:00 100.4 110 20 136/89 (105) 100 05/11/20 18:33 115 26 35 05/11/20 17:05 124 23 35 05/11/20 16:00 98.2 95 21 120/96 (104) 100 05/11/20 16:00 Mechanical Ventilator 05/11/20 16:00 95 05/11/20 16:00 35 05/11/20 15:15 70 19 35 05/11/20 13:05 122 26 35 05/11/20 12:00 35 05/11/20 12:00 79 05/11/20 12:00 Mechanical Ventilator 05/11/20 12:00 97.5 91 17 134/83 (100) 100 Intake and Output 05/11/20 05/12/20 19:00 07:00 Intake Total 1275 ml 713.4 ml Output Total 400 ml 850 ml Balance 875 ml -136.6 ml IV Total 1275 ml 713.4 ml Output Urine Total 400 ml 850 ml # Bowel Movements 6 4 Laboratory Tests 05/12/20 03:20: White Blood Count 5.7, Red Blood Count 2.72L, Hemoglobin 8.0L, Hematocrit 24.5L , Mean Corpuscular Volume 90, Mean Corpuscular Hemoglobin 29.5, Mean Corpuscular Hemoglobin Concent 32.8, Red Cell Distribution Width 13.2, Platelet Count 172, Mean Platelet Volume 6.6, Neutrophils (%) (Auto) 82.1H, Lymphocytes ( %) (Auto) 10.0L, Monocytes (%) (Auto) 4.5, Eosinophils (%) (Auto) 2.6, Basophils (%) (Auto) 0.8, Sodium Level 137, Potassium Level 3.5, Chloride Level 106, Carbon Dioxide Level 25, Anion Gap 6, Blood Urea Nitrogen 48H, Creatinine 1.0, Estimat Glomerular Filtration Rate 52.5, Glucose Level 83, Calcium Level 7.6L Height (Feet): 5 Height (Inches): 1.00 Weight (Pounds): 154 General Appearance: no apparent distress EENT: normal ENT inspection Neck: supple Cardiovascular: normal rate Respiratory/Chest: decreased breath sounds Abdomen: normal bowel sounds, non tender, soft Extremities: non-tender Jaylon Panchal MD May 12, 2020 11:07
--- NOTE | 2020-05-12 11:58 | NUR ---
*-* INSURANCE *-* UPDATED CLINICALS AND REVIEWS HAVE BEEN FAXED TO: [facility] FAX CLINICALS TO [facility] P:[phone] F:[phone]
--- NOTE | 2020-05-12 12:22 | NUR ---
NURSE NOTES: Left a message with Dr. Mustafa to transfuse 1 unit of blood.
--- NOTE | 2020-05-12 15:00 | NUR ---
NURSE NOTES: Dr Kauffman and Georgina at bed side. I unit of blood ordered by Dr. Kauffman.
--- NOTE | 2020-05-12 16:16 | Cardiac Electrophysiology PN ---
Assessment/Plan Assessment/Plan 1. Non-ST elevation myocardial infarction with troponin of 3.2, down to 2 and 1.9. Due to demand ischemia in view hemoglobin of only 6 as well as renal failure. Her EKG shows sinus rhythm with nonspecific ST-T wave abnormality and no ST elevation. 2. Volume overload. BNP of 19,000 as well as 4+ edema. Likely intravascularly depleted as her BUN is 112 and creatinine 1.8. Improved to 62/1.2. Fu by Dr. Minor. 3. Severe hyponatremia, Sodium 125. 4. S/P Septic shock with lactic acidosis and Hb 6. 5. 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 6. Dysphagia, status post PEG placement. 7. Acute renal failure. 8. Severe Anemia. Got PRBC and is on IV antibiotic per ID. S/P EGD. Colonscopy rescheduled for tomorrow DW RN and Dr Kauffman Subjective Subjective Remained in atrial fib in 70s. Had rachel down to 30s and tachy episodes as well. On 35% Fio2 on Vent via Trach. EGD yesterday was negative. Colonoscopy rescheduled for tomorrow. Abd CT pending. Objective Last 24 Hour Vital Signs Date Time Temp Pulse Resp B/P (MAP) Pulse Ox O2 Delivery O2 Flow Rate FiO2 05/12/20 15:20 114 20 35 05/12/20 13:25 114 25 35 05/12/20 12:30 111 20 150/98 (115) 100 05/12/20 12:00 35 05/12/20 12:00 Mechanical Ventilator 05/12/20 12:00 98.2 109 22 149/102 (118) 100 05/12/20 11:47 123 05/12/20 09:10 132 21 35 05/12/20 08:00 97.9 134 24 139/94 (109) 100 05/12/20 08:00 Mechanical Ventilator 05/12/20 08:00 35 05/12/20 07:56 124 05/12/20 07:30 142 22 35 05/12/20 05:20 122 21 35 05/12/20 04:00 35 05/12/20 04:00 99 05/12/20 04:00 Mechanical Ventilator 05/12/20 04:00 97.9 114 18 116/82 (93) 100 05/12/20 03:04 128 28 35 05/12/20 00:32 78 15 35 05/12/20 00:00 Mechanical Ventilator 05/12/20 00:00 80 05/12/20 00:00 98.1 100 18 141/81 (101) 100 05/11/20 23:11 111 21 35 05/11/20 21:08 109 21 35 05/11/20 20:44 99.9 05/11/20 20:00 102 05/11/20 20:00 35 05/11/20 20:00 Mechanical Ventilator 05/11/20 20:00 100.4 110 20 136/89 (105) 100 05/11/20 18:33 115 26 35 05/11/20 17:05 124 23 35 Intake and Output 05/11/20 05/12/20 19:00 07:00 Intake Total 1275 ml 713.4 ml Output Total 400 ml 850 ml Balance 875 ml -136.6 ml IV Total 1275 ml 713.4 ml Output Urine Total 400 ml 850 ml # Bowel Movements 6 4 Laboratory Tests Test 05/12/20 03:20 White Blood Count 5.7 K/UL (4.8-10.8) Red Blood Count 2.72 M/UL (4.20-5.40) L Hemoglobin 8.0 G/DL (12.0-16.0) L Hematocrit 24.5 % (37.0-47.0) L Mean Corpuscular Volume 90 FL (80-99) Mean Corpuscular Hemoglobin 29.5 PG (27.0-31.0) Mean Corpuscular Hemoglobin Concent 32.8 G/DL (32.0-36.0) Red Cell Distribution Width 13.2 % (11.6-14.8) Platelet Count 172 K/UL (150-450) Mean Platelet Volume 6.6 FL (6.5-10.1) Neutrophils (%) (Auto) 82.1 % (45.0-75.0) H Lymphocytes (%) (Auto) 10.0 % (20.0-45.0) L Monocytes (%) (Auto) 4.5 % (1.0-10.0) Eosinophils (%) (Auto) 2.6 % (0.0-3.0) Basophils (%) (Auto) 0.8 % (0.0-2.0) Sodium Level 137 MMOL/L (136-145) Potassium Level 3.5 MMOL/L (3.5-5.1) Chloride Level 106 MMOL/L (98-107) Carbon Dioxide Level 25 MMOL/L (21-32) Anion Gap 6 mmol/L (5-15) Blood Urea Nitrogen 48 mg/dL (7-18) H Creatinine 1.0 MG/DL (0.55-1.30) Estimat Glomerular Filtration Rate 52.5 mL/min (>60) Glucose Level 83 MG/DL (74-106) Calcium Level 7.6 MG/DL (8.5-10.1) L Microbiology Date/Time Source Procedure Growth Status 05/09/20 17:30 Femoral Right Lower Lobe Catheter Tip Culture - Preliminary Gram Negative Bacillus 1 Resulted Objective HEAD AND NECK: Status post tracheostomy, which is fresh. LUNGS: Coarse rhonchi. CARDIOVASCULAR: Regular S1 and S2 with no gallop. ABDOMEN: Status post G-tube. EXTREMITIES: 3+ pitting edema. Renard Erickson MD May 12, 2020 16:16
--- NOTE | 2020-05-12 16:20 | Surgery Progress Note ---
Surgery Progress Note Subjective Additional Comments leukocytosis improved labs noted exam stable comfortable no n/v/f/c Objective Last 24 Hour Vital Signs Date Time Temp Pulse Resp B/P (MAP) Pulse Ox O2 Delivery O2 Flow Rate FiO2 05/12/20 15:20 114 20 35 05/12/20 13:25 114 25 35 05/12/20 12:30 111 20 150/98 (115) 100 05/12/20 12:00 35 05/12/20 12:00 Mechanical Ventilator 05/12/20 12:00 98.2 109 22 149/102 (118) 100 05/12/20 11:47 123 05/12/20 09:10 132 21 35 05/12/20 08:00 97.9 134 24 139/94 (109) 100 05/12/20 08:00 Mechanical Ventilator 05/12/20 08:00 35 05/12/20 07:56 124 05/12/20 07:30 142 22 35 05/12/20 05:20 122 21 35 05/12/20 04:00 35 05/12/20 04:00 99 05/12/20 04:00 Mechanical Ventilator 05/12/20 04:00 97.9 114 18 116/82 (93) 100 05/12/20 03:04 128 28 35 05/12/20 00:32 78 15 35 05/12/20 00:00 Mechanical Ventilator 05/12/20 00:00 80 05/12/20 00:00 98.1 100 18 141/81 (101) 100 05/11/20 23:11 111 21 35 05/11/20 21:08 109 21 35 05/11/20 20:44 99.9 05/11/20 20:00 102 05/11/20 20:00 35 05/11/20 20:00 Mechanical Ventilator 05/11/20 20:00 100.4 110 20 136/89 (105) 100 05/11/20 18:33 115 26 35 05/11/20 17:05 124 23 35 I&O Intake and Output 05/11/20 05/12/20 19:00 07:00 Intake Total 1275 ml 713.4 ml Output Total 400 ml 850 ml Balance 875 ml -136.6 ml IV Total 1275 ml 713.4 ml Output Urine Total 400 ml 850 ml # Bowel Movements 6 4 Dressing: other Wound: other Drains: other Cardiovascular: RSR Respiratory: decreased breath sounds Abdomen: soft, non-tender, present bowel sounds, non-distended Extremities: no cyanosis Laboratory Tests Test 05/12/20 03:20 White Blood Count 5.7 K/UL (4.8-10.8) Red Blood Count 2.72 M/UL (4.20-5.40) L Hemoglobin 8.0 G/DL (12.0-16.0) L Hematocrit 24.5 % (37.0-47.0) L Mean Corpuscular Volume 90 FL (80-99) Mean Corpuscular Hemoglobin 29.5 PG (27.0-31.0) Mean Corpuscular Hemoglobin Concent 32.8 G/DL (32.0-36.0) Red Cell Distribution Width 13.2 % (11.6-14.8) Platelet Count 172 K/UL (150-450) Mean Platelet Volume 6.6 FL (6.5-10.1) Neutrophils (%) (Auto) 82.1 % (45.0-75.0) H Lymphocytes (%) (Auto) 10.0 % (20.0-45.0) L Monocytes (%) (Auto) 4.5 % (1.0-10.0) Eosinophils (%) (Auto) 2.6 % (0.0-3.0) Basophils (%) (Auto) 0.8 % (0.0-2.0) Sodium Level 137 MMOL/L (136-145) Potassium Level 3.5 MMOL/L (3.5-5.1) Chloride Level 106 MMOL/L (98-107) Carbon Dioxide Level 25 MMOL/L (21-32) Anion Gap 6 mmol/L (5-15) Blood Urea Nitrogen 48 mg/dL (7-18) H Creatinine 1.0 MG/DL (0.55-1.30) Estimat Glomerular Filtration Rate 52.5 mL/min (>60) Glucose Level 83 MG/DL (74-106) Calcium Level 7.6 MG/DL (8.5-10.1) L Plan Problems: (1) Sepsis (2) Nosocomial pneumonia (3) Hyponatremia (4) UTI (urinary tract infection) (5) Hypotension (6) Chronic respiratory failure Assessment & Plan: 89F ill appearing trach on vent trach evaluated and 8f xlt noted sutures in place causing tension and breakdown sutures removed at bedside trach stoma evaluated and with breakdown. dressings applied trach in place and functional cont vent support will monitor and follow with recs thank you Pt presented on admission with Tracheostomy ,Generalized edema, Multiple Pressure injuries. DTPI that is de-capped L Scapula(L)3.4cmx (W)7.3cm. Base of wound is 90% slough 10% Loose purpuric base and edges. Surrounding non-blanching erythema. Inferior L scapula ,but in close proximity is DTPI (L)1.9cm x (W)4.4cm. Base of wound is purpuric with Maroon borders. Within close proximity to both wounds #3 linear purpuric areas that fans from scapula area outward towards thoracic spine. DTPI Sacrococcygeal to L Buttocks (L)7.4cm x (W)4.3cm.Base of wound is purpuric and indurated with surrounding non-blanching erythema. Two Partial thickness pressure injuries noted to L buttocks(Proximal)2.5cm x (W) 4.6cm. Base of wound is moist and viable.Surrounding Non-Blanching erythema.( Distal)1cm x (W)1cm. Base of wound is moist and viable.Surrounding Non- Blanching erythema. Perineal area is erythematous and moist . A purpuric area that is fluctuant noted at Perineum. Bilat lower ext are edematous. 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 A second smaller serous Bulla noted to dorso/lateral R foot (L)2cm x(W)2.2cm.Scattered small purpuric areas noted to heads of 2nd ,3rd,4th metatarsals. Multiple purpuric areas noted to distal/lateral L tibia and L foot. Elongated Purpuric Area with Marginal erythema along edges noted to distal/ Lateral L tibia(L)7cm x (W)1.8cm. L Heel /L Foot is an irregular shaped Purpuric area with marginal erythema without fluctuance/induration (L)3cm x (W)9.5cm. L Lateral Malleolus DTPI(L)1.5cm x (W)1.9cm.. Base of injury is fluctuant, purpuric with Maroon borders. DTPI distal/lateral L foot (L)1.5cm x (W)1.5cm. Base of injury is maroon with fluctuance. L Heel is boggy with non-blanchable erythema. Tx.Plan: Cleanse wound L Scapula with Saline. Apply Therahoney. Apply Cavilon Skin Barrier Periwound. Cover with Optifoam Drsg every 3 days and prn. Apply Cavilon Skin Barrier to Purpuric areas L Scapula. Cover with Optifoam drsg every 3 days and prn. Apply Moisture Barrier Paste to Sacrum and L Buttocks. Cover each site with Optifoam drsgs. Change every 3 days and PRN. Apply Cavilon Skin Barrier [place] to Blisters R foot. Cover with ABD Pads and wrap with Kerlix every 3 days and prn. Apply Cavilon Barrier [place] To Purpuric areas Distal L tibia and L foot. Cover with ABD Pads and wrap with Kerlix every 3 days and prn. Reposition at least every 2hors or as tolerated . Off-load heels with Pillow. Place Pillow between knees. APM/CAILIN Mattress. (7) Anemia (8) NSTEMI (non-ST elevated myocardial infarction) (9) Feeding by G-tube Assessment & Plan: DAILY ESTIMATED NEEDS: Needs based on wound, critical care 47.5kg abw 25-30 kcals/kg 2056-9991 total kcals 1.25-2 g protein/kg 59-95 g total protein 25-30ml/kcal mL/kg 0266-3429 total fluid mLs NUTRITION DIAGNOSIS: Swallowing difficulty r/t respiratory status as evidenced by pt is trach and peg dep. CURRENT TF: NPO for EGD ENTERAL NUTRITION RECOMMENDATIONS: Osmolite 1.2 goal of 45ml/hr x24 hrs + Prosource 1 pack daily to provide 1080ml, 1296 kcal, 60g + 11g pro, 886ml free H2O - As medically able, start Osmolite low fiber TF @low rate 25ml/hr for 6 hrs. - Advance as tolerated 10ml/hr q4-6 hrs to goal - Flush per MD/ HOB over 30 degrees - Add Prosource 1 pack daily to better meet est pro needs. ADDITIONAL RECOMMENDATIONS: 1) F/up w/ WC eval, add GOLDIE BID w/ TF order 2) Per SNF : 4'8" (56 inches) and 142 lbs/64.55kg 3) Monitor renal function, lytes; need for renal TF formula 4) Monitor BG and need for carb control formula -> rec accuchecks + niss (10) HIRO (acute kidney injury) (11) Chronic vegetative state (12) ICH (intracerebral hemorrhage) Vickey Galvez May 12, 2020 16:20
--- NOTE | 2020-05-12 17:53 | NUR ---
NURSE NOTES: Called Dr. Erickson for medication for elevated blood pressure, BP 133/104. Waiting for call back.
--- NOTE | 2020-05-12 19:29 | NUR ---
NURSE HAND-OFF REPORT: Important Events on Shift:Elevated BP, 1 Unit blood ordered Patient Status: Full code stable Diet: NPO Pending Orders: 1u PRBC Pending Results/Labs:N/A Pending MD notification:1u PRBC with elevated BP Latest Vital Signs: Temperature 98.2 , Pulse 120 , B/P 133 /104 , Respiratory Rate 20 , O2 SAT 100 , Mechanical Ventilator, O2 Flow Rate . Vital Sign Comment: Elevated BP reported to Dr Erickson. Waiting for call back. EKG Rhythm: Atrial Fibrillation Rhythm change?: N MD Notified?: N - MD Response: Latest Madison Fall Score: 70 Fall Risk: High Risk Safety Measures: Call light Within Reach, Bed Alarm Zone 1, Side Rails Side Rails x3, Bed position Low and Locked. Fall Precautions: Yellow Socks Yellow Gown Patient Fall Education Report given to ROSALINO Richardson.
--- NOTE | 2020-05-12 19:30 | NUR ---
"NURSE NOTES: Received report from ROSALINO Leigh with update. Pt obtunded. unable to make needs known. contracted and passive to care. 157/96 | 141 bpm | 100% O2 sat | 98.9 axil | 20 RR No respiratory distress noted on vent: T:V S8 | A/C 10 | Vt 400 | FiO2 35% and P5 Pt g-tube intact with 20 cc residual. Observed running NPO for the past 4 days. Edema noted. Alterations in skin noted. Aware of plans to rescheduled colonoscopy tomorrow. Will contact Val in regards to clarifying to hold 1 PRBC. Bed placed in lowest and locked position. Bed alarm on and will continue to monitor."
[2020-05-12] MEDS ORDERED: Nulytely 4L GT SCH (20:00)
--- NOTE | 2020-05-12 20:20 | NUR ---
NURSE NOTES: Left message for Dr. Rodriguez in regards to HR of 141-156 bpm. No PRN orders observed. Advised by CN to hold PRBC until vitals are stable. Notified and left message for Dr. Kauffman. Awaiting call back.
[2020-05-12] MEDS: Acetaminophen 650mg/20.3ml GT PRN (21:27)
[2020-05-12] MEDS: Micafungin 100 MG in NS 110 ML IVPB SCH (21:28)
[2020-05-13] VITALS: BP 145/99
[2020-05-13] MEDS: Metoprolol Tartrate 12.5mg TAB ORAL SCH ×2 (00:04→09:49)
--- NOTE | 2020-05-13 01:00 | NUR ---
NURSE NOTES: Stat EKG ordered for HR of [address] with RVR. Metoprolol BID ordered. Patient remains in stable condition. Clearance from cardio to transfuse PRBC despite high blood pressure of 157/95, per Dr. Erickson. New orders from [facility] to transfuse only for hgb <7.5. Will notify Daly in AM pending CBC lab results. D/w lab, [facility], about missing STAT type and cross results. Per counter intelligence technician, "patient is too edematous and was unable to draw." Per [facility], lab is also unable to release PRB's for Hgb levels LESS THAN 8.0 during after-hours without approval from pathologist. Will endorse to charge nurse and leave message for Daly in AM.
[2020-05-13] MEDS: Ampicillin 2 GM in NS 110 ML IVPB SCH ×3 (02:19→18:10)
--- NOTE | 2020-05-13 03:30 | NUR ---
NURSE NOTES: Nulytely completed via PEG for colonoscopy at 1300. Approx 1,700 of yellow/green output. Pt HR stabilized at 98 bpm, BP 137/94. No cardiac or respiratory distress noted.
[2020-05-13 04:00] VITALS: BP 156/97
[2020-05-13 04:41] LABS: BASOPHILS % (AUTO) 0.8 % (0.0-2.0); HEMOGLOBIN 8.7 G/DL (12.0-16.0); LYMPHOCYTES % (AUTO) 15.6 % (20.0-45.0); MEAN CORPUSCULAR VOLUME 90 FL (80-99); MONOCYTES % (AUTO) 4.7 % (1.0-10.0); NEUTROPHILS % (AUTO) 77.9 % (45.0-75.0); PLATELET COUNT 182 K/UL (150-450); RED BLOOD COUNT 2.88 M/UL (4.20-5.40); RED CELL DISTRIBUTION WIDTH 13.4 % (11.6-14.8)
[2020-05-13 04:58] LABS: ALANINE AMINOTRANSFERASE 40 U/L (12-78); ALBUMIN/GLOBULIN RATIO 0.6 (1.0-2.7); ALKALINE PHOSPHATASE 113 U/L (46-116); ANION GAP 11 mmol/L (5-15); ASPARTATE AMINO TRANSFERASE 38 U/L (15-37); BILIRUBIN,TOTAL 0.8 MG/DL (0.2-1.0); BLOOD UREA NITROGEN 43 mg/dL (7-18); CALCIUM 8.1 MG/DL (8.5-10.1); CARBON DIOXIDE 24 MMOL/L (21-32); CHLORIDE 108 MMOL/L (98-107); CREATININE 1.1 MG/DL (0.55-1.30); POTASSIUM 4.2 MMOL/L (3.5-5.1); SODIUM 142 MMOL/L (136-145)
--- NOTE | 2020-05-13 07:06 | NUR ---
NURSE HAND-OFF REPORT: Important Events on Shift: BID Metoprolol ordered for Tacchycardia/HTN Patient Status: Stable Diet: NPO Pending Orders: N Pending Results/Labs:N Pending MD notification:Nicky pettit to d/c PRBC order Latest Vital Signs: Temperature 98.2 , Pulse 121 , B/P 156 /97 , Respiratory Rate 19 , O2 SAT 100 , Mechanical Ventilator, O2 Flow Rate . Vital Sign Comment: EKG Rhythm: Atrial Fibrillation Rhythm change?: N MD Notified?: N - MD Response: Latest Madison Fall Score: 70 Fall Risk: High Risk Safety Measures: Call light Within Reach, Bed Alarm Zone 1, Side Rails Side Rails x3, Bed position Low and Locked. Fall Precautions: Yellow Socks Yellow Gown Patient Fall Education Report given to ROSALINO Leigh.
--- NOTE | 2020-05-13 07:07 | NUR ---
NURSE NOTES: Received patient from ROSALINO Barriga. Patient is alert to shaking, non-verbal, on monitor car operator, and no acute distress. Patient is clean and in bed. Trach Shiely 8, AC 10, TV 10, TV 400, PEEP of 5. Patient is NPO pending procedure and has a G-tube. Quiñonez draining to gravity. Wounds noted with pictures. IV sites left habf 24g, right hand 22g patent with no signs of infection. Bed at its lowest position, call light in reach, and x3 bed rails are up. Will continue to monitor.
--- NOTE | 2020-05-13 07:33 | Infectious Diseases Prog Note ---
Assessment/Plan 89yo F with: Hypotension in setting of anemia to 6.0 Normal WBC Afebrile, Tmax 99.7 --> Febrile to 100.4 Fungemia 05/08 BCx +C.parapsilosis 05/08 TTE wo apparent vegetations 05/10 R fem CVC removed, tip cx + GNRs + yeast 05/11 BCx NTD 05/12 BCx NTD GPC Bacteremia 05/08 BCx 1/2 +E.faecalis (S-amp) MRSA nares neg Possible UTI 05/08 UA+, UCx >100k ESBL Kleb pna (R-levo @1) Possible pna, vent dependent via trach 05/08 CXR: Patchy opacities throughout the lungs which may represent pulmonary edema versus infectious/inflammatory process. Possible small pleural effusions. 05/08 COVID rapid Ag neg x1 05/09 COVID rapid Ag neg x1 Volume OL? 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 PMH: GIB, ICH, trach and vent dependent, HTN, GERD Plan: Stop meropenem, s/p 5d for ESBL Kleb pna UTI Cont ampicillin #3/11 (abx day #6/) for E.faecalis bacteremia Cont micafungin #4/14 for Candidemia (possibly from fem CVC, removed 05/10, needs 2 wk course from then, so through 05/23 05/13 SP elaine #5 for ESBL UTI 05/11 SP vanco #1 05/10 SP Zosyn #2 ?Source of polymicrobial bacteremia/fungemia, likely gut source given organisms F/u colonoscopy results (to be done today), if this is unremarkable then will consider CT A/P w con to eval for source of bacteremia/fungemia F/u BCx Trend HIRO, improving Monitor CBC/CMP Monitor resp status Monitor temp curve D/w RN Thank you for this consult. [facility] will continue to follow. Subjective Allergies: Coded Allergies: No Known Allergies (Unverified , 05/08/20) AF WBC 7 Remains on vent, FiO2 35% PEEP 5 satting 100% NAD Going for colonoscopy today Objective Last 24 Hour Vital Signs Date Time Temp Pulse Resp B/P (MAP) Pulse Ox O2 Delivery O2 Flow Rate FiO2 05/13/20 06:40 124 22 35 05/13/20 05:17 121 19 35 05/13/20 04:00 35 05/13/20 04:00 Mechanical Ventilator 05/13/20 04:00 98.2 113 17 156/97 (116) 100 05/13/20 03:36 118 05/13/20 03:20 113 19 35 05/13/20 01:20 117 20 35 05/13/20 00:04 128 145/99 05/13/20 00:00 125 05/13/20 00:00 35 05/13/20 00:00 Mechanical Ventilator 05/13/20 00:00 97.7 117 22 145/99 (114) 100 05/12/20 22:33 130 19 35 05/12/20 21:57 98.7 05/12/20 21:10 125 19 35 05/12/20 20:15 112 19 35 05/12/20 20:00 98.9 151 27 157/95 (115) 100 05/12/20 20:00 Mechanical Ventilator 05/12/20 19:26 120 05/12/20 17:07 120 20 35 05/12/20 16:00 35 05/12/20 16:00 98.2 121 27 133/104 (114) 100 05/12/20 16:00 Mechanical Ventilator 05/12/20 16:00 106 05/12/20 15:20 114 20 35 05/12/20 13:25 114 25 35 05/12/20 12:30 111 20 150/98 (115) 100 05/12/20 12:00 35 05/12/20 12:00 Mechanical Ventilator 05/12/20 12:00 98.2 109 22 149/102 (118) 100 05/12/20 11:47 123 05/12/20 09:10 132 21 35 05/12/20 08:00 97.9 134 24 139/94 (109) 100 05/12/20 08:00 Mechanical Ventilator 05/12/20 08:00 35 05/12/20 07:56 124 Height (Feet): 5 Height (Inches): 1.00 Weight (Pounds): 161 Gen: Older woman, on vent, NAD HEENT: Trach CV: RRR Pulm: CTAB on vent Abd: Soft, NTND, +PEG Neuro: Non-responsive Lines: PIVs in BL hands Microbiology Date/Time Source Procedure Growth Status 05/12/20 03:20 Blood Blood Culture - Preliminary NO GROWTH AFTER 24 HOURS Resulted 05/11/20 09:30 Blood Blood Culture - Preliminary NO GROWTH AFTER 24 HOURS Resulted Laboratory Tests Test 05/13/20 03:57 White Blood Count 7.0 K/UL (4.8-10.8) Red Blood Count 2.88 M/UL (4.20-5.40) L Hemoglobin 8.7 G/DL (12.0-16.0) L Hematocrit 26.0 % (37.0-47.0) L Mean Corpuscular Volume 90 FL (80-99) Mean Corpuscular Hemoglobin 30.2 PG (27.0-31.0) Mean Corpuscular Hemoglobin Concent 33.4 G/DL (32.0-36.0) Red Cell Distribution Width 13.4 % (11.6-14.8) Platelet Count 182 K/UL (150-450) Mean Platelet Volume 6.7 FL (6.5-10.1) Neutrophils (%) (Auto) 77.9 % (45.0-75.0) H Lymphocytes (%) (Auto) 15.6 % (20.0-45.0) L Monocytes (%) (Auto) 4.7 % (1.0-10.0) Eosinophils (%) (Auto) 1.0 % (0.0-3.0) Basophils (%) (Auto) 0.8 % (0.0-2.0) Sodium Level 142 MMOL/L (136-145) Potassium Level 4.2 MMOL/L (3.5-5.1) Chloride Level 108 MMOL/L (98-107) H Carbon Dioxide Level 24 MMOL/L (21-32) Anion Gap 11 mmol/L (5-15) Blood Urea Nitrogen 43 mg/dL (7-18) H Creatinine 1.1 MG/DL (0.55-1.30) Estimat Glomerular Filtration Rate 47.0 mL/min (>60) Glucose Level 72 MG/DL (74-106) L Calcium Level 8.1 MG/DL (8.5-10.1) L Total Bilirubin 0.8 MG/DL (0.2-1.0) Aspartate Amino Transf (AST/SGOT) 38 U/L (15-37) H Alanine Aminotransferase (ALT/SGPT) 40 U/L (12-78) Alkaline Phosphatase 113 U/L (46-116) Pro-B-Type Natriuretic Peptide 66557 pg/mL (0-125) H Total Protein 5.1 G/DL (6.4-8.2) L Albumin 2.0 G/DL (3.4-5.0) L Globulin 3.1 g/dL Albumin/Globulin Ratio 0.6 (1.0-2.7) L Current Medications Medications (Trade) Dose Ordered Sig/Sherie Route PRN Reason Start Time Stop Time Status Last Admin Dose Admin Acetaminophen (Tylenol) 650 mg Q6H PRN GT For Headache 05/09/20 20:30 06/08/20 20:29 05/12/20 21:27 Ampicillin 2 gm/ Sodium Chloride 110 ml @ 220 mls/hr Q8H IVPB 05/11/20 10:00 05/18/20 09:59 05/13/20 02:19 Docusate Sodium (Colace) 100 mg TWICE A DAY NG 05/09/20 18:00 06/08/20 17:59 05/12/20 18:37 Furosemide (Lasix) 20 mg DAILY IV 05/12/20 09:00 06/11/20 08:59 05/12/20 09:33 Meropenem 500 mg/ Sodium Chloride 55 ml @ 110 mls/hr EVERY 12 HOURS IVPB 05/10/20 13:00 05/15/20 12:59 05/12/20 21:28 Metoprolol Tartrate (Lopressor) 12.5 mg Q12HR ORAL 05/12/20 22:15 08/10/20 22:14 05/13/20 00:04 Micafungin Sodium 100 mg/Sodium Chloride 110 ml @ 110 mls/hr Q24H IVPB 05/10/20 20:00 05/17/20 19:59 05/12/20 21:28 Pantoprazole (Protonix) 40 mg EVERY 12 HOURS IVP 05/08/20 21:00 06/07/20 20:59 05/12/20 21:26 Potassium Chloride (K-Dur) 40 meq TWICE A DAY GT 8/19/20 18:00 08/09/20 17:59 05/12/20 18:37 Sucralfate (Carafate) 1 gm FOUR TIMES A DAY GT 05/08/20 18:00 08/06/20 17:59 05/12/20 21:26 Ashley Snyder M.D. May 13, 2020 07:33
[2020-05-13 08:00] VITALS: BP 140/96
--- NOTE | 2020-05-13 08:42 | Hematology/Onc Progress Note ---
Assessment/Plan Assessment/Plan Assessment and Recs # Anemia rule out underlying gi bleed --> anemia panel has been ordered, esr, ferritin, tibc, occult --> s/p transfusion prbc 05/08 --> gi service if h/h downtrends --> triple lumen has been placed --> hgb 7.7-->8.1->8-->8.7 # NSTEMI (non-ST elevated myocardial infarction) with trop elevation --> on bb, off asa --> seen by Dr. Erickson --> volume management as per cards/renal --> trop downtrended # HIRO (acute kidney injury) --> cr 1.8-->1.5-->1 # Hyponatremia/Hypokalemoa --> per renal recs # Respiratory failure s/p trach --> consulted pulm # PNA on cxr --> as per id recs --> ABX amp/micaf/elaine # Dysphagia s/p peg # Dvt ppx scds Appreciate inbound sales consultant care, will follow Subjective HEENT: Denies: no symptoms, eye pain, blurred vision, tearing, double vision, ear pain, ear discharge, nose pain, nose congestion, throat pain, throat swelling, mouth pain, mouth swelling, other Cardiovascular: Denies: no symptoms, chest pain, edema, irregular heart rate, lightheadedness, palpitations, syncope, other Respiratory: Denies: no symptoms, cough, shortness of breath, SOB with excertion, SOB at rest, sputum, wheezing, other Genitourinary: Denies: no symptoms, burning, discharge, frequency, flank pain, hematuria, incontinence, pain, urgency, other Neurologic/Psychiatric: Denies: no symptoms, anxiety, depressed, emotional problems, headache, numbness, paresthesia, pre-existing deficit, seizure, tingling, tremors, weakness, other Endocrine: Denies: no symptoms, excessive sweating, flushing, intolerance to cold, intolerance to heat, increased hunger, increased thirst, increased urine, unexplained weight gain, unexplained weight loss, other Hematologic/Lymphatic: Denies: no symptoms, anemia, easy bleeding, easy bruising, adenopathy, other Allergies: Coded Allergies: No Known Allergies (Unverified , 05/08/20) Subjective 05/10 remains obtunded, dw rn, labs are noted, on vanc/zosyn, mild temp overnight 05/11 no bleeding or chills, on abx, remains confused, no night swaets 05/12 labs are noted, no bleeding, meds noted, cbc reviewed, no heoptysis 05/13 hgb 8.7, no hemolysis, no bleeding, dw rn, without change Objective Objective Current Medications Medications (Trade) Dose Ordered Sig/Sherie Route PRN Reason Start Time Stop Time Status Last Admin Dose Admin Acetaminophen (Tylenol) 650 mg Q6H PRN GT For Headache 05/09/20 20:30 06/08/20 20:29 05/12/20 21:27 Ampicillin 2 gm/ Sodium Chloride 110 ml @ 220 mls/hr Q8H IVPB 05/11/20 10:00 05/18/20 09:59 05/13/20 02:19 Docusate Sodium (Colace) 100 mg TWICE A DAY NG 05/09/20 18:00 06/08/20 17:59 05/12/20 18:37 Furosemide (Lasix) 20 mg DAILY IV 05/12/20 09:00 06/11/20 08:59 05/12/20 09:33 Meropenem 500 mg/ Sodium Chloride 55 ml @ 110 mls/hr EVERY 12 HOURS IVPB 05/10/20 13:00 05/15/20 12:59 05/12/20 21:28 Metoprolol Tartrate (Lopressor) 12.5 mg Q12HR ORAL 05/12/20 22:15 08/10/20 22:14 05/13/20 00:04 Micafungin Sodium 100 mg/Sodium Chloride 110 ml @ 110 mls/hr Q24H IVPB 05/10/20 20:00 05/17/20 19:59 05/12/20 21:28 Pantoprazole (Protonix) 40 mg EVERY 12 HOURS IVP 05/08/20 21:00 06/07/20 20:59 05/12/20 21:26 Potassium Chloride (K-Dur) 40 meq TWICE A DAY GT 05/11/20 18:00 08/09/20 17:59 05/12/20 18:37 Sucralfate (Carafate) 1 gm FOUR TIMES A DAY GT 05/08/20 18:00 08/06/20 17:59 05/12/20 21:26 Last 24 Hour Vital Signs Date Time Temp Pulse Resp B/P (MAP) Pulse Ox O2 Delivery O2 Flow Rate FiO2 05/13/20 06:40 124 22 35 05/13/20 05:17 121 19 35 05/13/20 04:00 35 05/13/20 04:00 Mechanical Ventilator 05/13/20 04:00 98.2 113 17 156/97 (116) 100 05/13/20 03:36 118 05/13/20 03:20 113 19 35 05/13/20 01:20 117 20 35 05/13/20 00:04 128 145/99 05/13/20 00:00 125 05/13/20 00:00 35 05/13/20 00:00 Mechanical Ventilator 05/13/20 00:00 97.7 117 22 145/99 (114) 100 05/12/20 22:33 130 19 35 05/12/20 21:57 98.7 05/12/20 21:10 125 19 35 05/12/20 20:15 112 19 35 05/12/20 20:00 98.9 151 27 157/95 (115) 100 05/12/20 20:00 Mechanical Ventilator 05/12/20 19:26 120 05/12/20 17:07 120 20 35 05/12/20 16:00 35 05/12/20 16:00 98.2 121 27 133/104 (114) 100 05/12/20 16:00 Mechanical Ventilator 05/12/20 16:00 106 05/12/20 15:20 114 20 35 05/12/20 13:25 114 25 35 05/12/20 12:30 111 20 150/98 (115) 100 05/12/20 12:00 35 05/12/20 12:00 Mechanical Ventilator 05/12/20 12:00 98.2 109 22 149/102 (118) 100 05/12/20 11:47 123 05/12/20 09:10 132 21 35 05/12/20 08:00 97.9 134 24 139/94 (109) 100 05/12/20 08:00 Mechanical Ventilator 05/12/20 08:00 35 05/12/20 07:56 124 05/12/20 07:30 142 22 35 05/12/20 05:20 122 21 35 05/12/20 04:00 35 05/12/20 04:00 99 05/12/20 04:00 Mechanical Ventilator 05/12/20 04:00 97.9 114 18 116/82 (93) 100 05/12/20 03:04 128 28 35 05/12/20 00:32 78 15 35 05/12/20 00:00 Mechanical Ventilator 05/12/20 00:00 80 05/12/20 00:00 98.1 100 18 141/81 (101) 100 05/11/20 23:11 111 21 35 05/11/20 21:08 109 21 35 05/11/20 20:00 102 05/11/20 20:00 35 05/11/20 20:00 Mechanical Ventilator 05/11/20 20:00 100.4 110 20 136/89 (105) 100 05/11/20 18:33 115 26 35 05/11/20 17:05 124 23 35 05/11/20 16:00 98.2 95 21 120/96 (104) 100 05/11/20 16:00 Mechanical Ventilator 05/11/20 16:00 95 05/11/20 16:00 35 05/11/20 15:15 70 19 35 05/11/20 13:05 122 26 35 05/11/20 12:00 35 05/11/20 12:00 79 05/11/20 12:00 Mechanical Ventilator 05/11/20 12:00 97.5 91 17 134/83 (100) 100 05/11/20 10:44 84 16 35 05/11/20 10:11 98 14 98 05/11/20 08:54 86 21 35 05/11/20 08:49 100 10 99 Intake and Output 05/12/20 05/13/20 19:00 07:00 Intake Total 215 ml 440 ml Output Total 750 ml 600 ml Balance -535 ml -160 ml IV Total 215 ml 440 ml Output Urine Total 750 ml 600 ml # Bowel Movements 1 Labs Test 05/11/20 02:50 05/11/20 09:30 05/12/20 03:20 05/13/20 03:57 White Blood Count 7.2 K/UL (4.8-10.8) 5.7 K/UL (4.8-10.8) 7.0 K/UL (4.8-10.8) Red Blood Count 2.74 M/UL (4.20-5.40) 2.72 M/UL (4.20-5.40) 2.88 M/UL (4.20-5.40) Hemoglobin 8.1 G/DL (12.0-16.0) 8.0 G/DL (12.0-16.0) 8.7 G/DL (12.0-16.0) Hematocrit 24.6 % (37.0-47.0) 24.5 % (37.0-47.0) 26.0 % (37.0-47.0) Mean Corpuscular Volume 90 FL (80-99) 90 FL (80-99) 90 FL (80-99) Mean Corpuscular Hemoglobin 29.7 PG (27.0-31.0) 29.5 PG (27.0-31.0) 30.2 PG (27.0-31.0) Mean Corpuscular Hemoglobin Concent 33.0 G/DL (32.0-36.0) 32.8 G/DL (32.0-36.0) 33.4 G/DL (32.0-36.0) Red Cell Distribution Width 12.9 % (11.6-14.8) 13.2 % (11.6-14.8) 13.4 % (11.6-14.8) Platelet Count 167 K/UL (150-450) 172 K/UL (150-450) 182 K/UL (150-450) Mean Platelet Volume 6.9 FL (6.5-10.1) 6.6 FL (6.5-10.1) 6.7 FL (6.5-10.1) Neutrophils (%) (Auto) % (45.0-75.0) 82.1 % (45.0-75.0) 77.9 % (45.0-75.0) Lymphocytes (%) (Auto) % (20.0-45.0) 10.0 % (20.0-45.0) 15.6 % (20.0-45.0) Monocytes (%) (Auto) % (1.0-10.0) 4.5 % (1.0-10.0) 4.7 % (1.0-10.0) Eosinophils (%) (Auto) % (0.0-3.0) 2.6 % (0.0-3.0) 1.0 % (0.0-3.0) Basophils (%) (Auto) % (0.0-2.0) 0.8 % (0.0-2.0) 0.8 % (0.0-2.0) Differential Total Cells Counted 100 Neutrophils % (Manual) 87 % (45-75) Lymphocytes % (Manual) 4 % (20-45) Monocytes % (Manual) 7 % (1-10) Eosinophils % (Manual) 1 % (0-3) Basophils % (Manual) 1 % (0-2) Band Neutrophils 0 % (0-8) Platelet Estimate Adequate Platelet Morphology Normal Hypochromasia 1+ Sodium Level 137 MMOL/L (136-145) 137 MMOL/L (136-145) 142 MMOL/L (136-145) Potassium Level 3.4 MMOL/L (3.5-5.1) 3.5 MMOL/L (3.5-5.1) 4.2 MMOL/L (3.5-5.1) Chloride Level 102 MMOL/L (98-107) 106 MMOL/L (98-107) 108 MMOL/L (98-107) Carbon Dioxide Level 26 MMOL/L (21-32) 25 MMOL/L (21-32) 24 MMOL/L (21-32) Anion Gap 9 mmol/L (5-15) 6 mmol/L (5-15) 11 mmol/L (5-15) Blood Urea Nitrogen 62 mg/dL (7-18) 48 mg/dL (7-18) 43 mg/dL (7-18) Creatinine 1.2 MG/DL (0.55-1.30) 1.0 MG/DL (0.55-1.30) 1.1 MG/DL (0.55-1.30) Estimat Glomerular Filtration Rate 42.5 mL/min (>60) 52.5 mL/min (>60) 47.0 mL/min (>60) Glucose Level 117 MG/DL (74-106) 83 MG/DL (74-106) 72 MG/DL (74-106) Calcium Level 7.4 MG/DL (8.5-10.1) 7.6 MG/DL (8.5-10.1) 8.1 MG/DL (8.5-10.1) Phosphorus Level 2.7 MG/DL (2.5-4.9) Magnesium Level 2.1 MG/DL (1.8-2.4) Total Bilirubin 1.0 MG/DL (0.2-1.0) 0.8 MG/DL (0.2-1.0) Aspartate Amino Transf (AST/SGOT) 46 U/L (15-37) 38 U/L (15-37) Alanine Aminotransferase (ALT/SGPT) 47 U/L (12-78) 40 U/L (12-78) Alkaline Phosphatase 164 U/L (46-116) 113 U/L (46-116) Total Protein 5.2 G/DL (6.4-8.2) 5.1 G/DL (6.4-8.2) Albumin 2.3 G/DL (3.4-5.0) 2.0 G/DL (3.4-5.0) Globulin 2.9 g/dL 3.1 g/dL Albumin/Globulin Ratio 0.8 (1.0-2.7) 0.6 (1.0-2.7) Stool Occult Blood Positive (NEGATIVE) Pro-B-Type Natriuretic Peptide 05838 pg/mL (0-125) Height (Feet): 5 Height (Inches): 1.00 Weight (Pounds): 161 Objective PE General: Obtunded, no spontaneous movement. No obvious distress HEENT: NC/AT. Neck: Tracheostomy appears appropriately placed Cardiovascular: RRR. S1 and S2 normal. No murmur appreciated Resp: Normal work of breathing. No cough Abdomen: Abdomen is soft, nondistended. Gastrostomy tube appears in appropriate position without surrounding signs of infection or trauma. Skin: Intact. No abrasions, laceration or rash over the exposed skin MSK: Normal tone and bulk. Neuro: Obtunded Willy Mustafa MD May 13, 2020 08:42
[2020-05-13] MEDS: Meropenem 500mg in NS 55ml IVPB SCH (09:46)
[2020-05-13] MEDS: Docusate 100mg/10ml Liq NG SCH ×2 (09:49→18:10)
[2020-05-13] MEDS: Sucralfate 1gm tab GT SCH ×3 (09:49→18:10)
[2020-05-13] MEDS: Pantoprazole Inj IVP SCH (09:50)
--- NOTE | 2020-05-13 09:57 | NUR ---
RADIOLOGY DEPT., CHEST X-RAY DONE.-P.DYE
[2020-05-13] MEDS ORDERED: D5NS 1000ml IV ONE ×2 (10:05→11:47)
[2020-05-13] MEDS ORDERED: D5 1/2NS 1000ml IV ONE ×2 (10:05→11:47)
--- NOTE | 2020-05-13 11:15 | NUR ---
NURSE NOTES: Dr Erickson at bed side, BP from pervious day as well as today reported. No now orders at this tme.
--- NOTE | 2020-05-13 11:34 | Surgery Progress Note ---
Surgery Progress Note Subjective Additional Comments no acute events h/h stable comfortable appearing Objective Last 24 Hour Vital Signs Date Time Temp Pulse Resp B/P (MAP) Pulse Ox O2 Delivery O2 Flow Rate FiO2 05/13/20 10:57 109 21 35 05/13/20 09:49 120 140/95 05/13/20 08:00 97.5 106 17 140/96 (111) 99 106 160 106 05/13/20 07:54 121 05/13/20 06:40 124 22 35 05/13/20 05:17 121 19 35 05/13/20 04:00 35 05/13/20 04:00 Mechanical Ventilator 05/13/20 04:00 98.2 113 17 156/97 (116) 100 05/13/20 03:36 118 05/13/20 03:20 113 19 35 05/13/20 01:20 117 20 35 05/13/20 00:04 128 145/99 05/13/20 00:00 125 05/13/20 00:00 35 05/13/20 00:00 Mechanical Ventilator 05/13/20 00:00 97.7 117 22 145/99 (114) 100 05/12/20 22:33 130 19 35 05/12/20 21:57 98.7 05/12/20 21:10 125 19 35 05/12/20 20:15 112 19 35 05/12/20 20:00 98.9 151 27 157/95 (115) 100 05/12/20 20:00 Mechanical Ventilator 05/12/20 19:26 120 05/12/20 17:07 120 20 35 05/12/20 16:00 35 05/12/20 16:00 98.2 121 27 133/104 (114) 100 05/12/20 16:00 Mechanical Ventilator 05/12/20 16:00 106 05/12/20 15:20 114 20 35 05/12/20 13:25 114 25 35 05/12/20 12:30 111 20 150/98 (115) 100 05/12/20 12:00 35 05/12/20 12:00 Mechanical Ventilator 05/12/20 12:00 98.2 109 22 149/102 (118) 100 05/12/20 11:47 123 I&O Intake and Output 05/12/20 05/13/20 19:00 07:00 Intake Total 215 ml 440 ml Output Total 750 ml 600 ml Balance -535 ml -160 ml IV Total 215 ml 440 ml Output Urine Total 750 ml 600 ml # Bowel Movements 1 Dressing: saturated Cardiovascular: RSR Respiratory: decreased breath sounds Abdomen: soft, non-tender, present bowel sounds Extremities: edema, no tenderness, no cyanosis Laboratory Tests Test 05/13/20 03:57 White Blood Count 7.0 K/UL (4.8-10.8) Red Blood Count 2.88 M/UL (4.20-5.40) L Hemoglobin 8.7 G/DL (12.0-16.0) L Hematocrit 26.0 % (37.0-47.0) L Mean Corpuscular Volume 90 FL (80-99) Mean Corpuscular Hemoglobin 30.2 PG (27.0-31.0) Mean Corpuscular Hemoglobin Concent 33.4 G/DL (32.0-36.0) Red Cell Distribution Width 13.4 % (11.6-14.8) Platelet Count 182 K/UL (150-450) Mean Platelet Volume 6.7 FL (6.5-10.1) Neutrophils (%) (Auto) 77.9 % (45.0-75.0) H Lymphocytes (%) (Auto) 15.6 % (20.0-45.0) L Monocytes (%) (Auto) 4.7 % (1.0-10.0) Eosinophils (%) (Auto) 1.0 % (0.0-3.0) Basophils (%) (Auto) 0.8 % (0.0-2.0) Sodium Level 142 MMOL/L (136-145) Potassium Level 4.2 MMOL/L (3.5-5.1) Chloride Level 108 MMOL/L (98-107) H Carbon Dioxide Level 24 MMOL/L (21-32) Anion Gap 11 mmol/L (5-15) Blood Urea Nitrogen 43 mg/dL (7-18) H Creatinine 1.1 MG/DL (0.55-1.30) Estimat Glomerular Filtration Rate 47.0 mL/min (>60) Glucose Level 72 MG/DL (74-106) L Calcium Level 8.1 MG/DL (8.5-10.1) L Total Bilirubin 0.8 MG/DL (0.2-1.0) Aspartate Amino Transf (AST/SGOT) 38 U/L (15-37) H Alanine Aminotransferase (ALT/SGPT) 40 U/L (12-78) Alkaline Phosphatase 113 U/L (46-116) Pro-B-Type Natriuretic Peptide 77859 pg/mL (0-125) H Total Protein 5.1 G/DL (6.4-8.2) L Albumin 2.0 G/DL (3.4-5.0) L Globulin 3.1 g/dL Albumin/Globulin Ratio 0.6 (1.0-2.7) L Plan Problems: (1) Sepsis (2) Nosocomial pneumonia (3) Hyponatremia (4) UTI (urinary tract infection) (5) Hypotension (6) Chronic respiratory failure Assessment & Plan: 89F ill appearing trach on vent trach evaluated and 8f xlt noted sutures in place causing tension and breakdown sutures removed at bedside trach stoma evaluated and with breakdown. dressings applied trach in place and functional cont vent support will monitor and follow with recs thank you Pt presented on admission with Tracheostomy ,Generalized edema, Multiple Pressure injuries. DTPI that is de-capped L Scapula(L)3.4cmx (W)7.3cm. Base of wound is 90% slough 10% Loose purpuric base and edges. Surrounding non-blanching erythema. Inferior L scapula ,but in close proximity is DTPI (L)1.9cm x (W)4.4cm. Base of wound is purpuric with Maroon borders. Within close proximity to both wounds #3 linear purpuric areas that fans from scapula area outward towards thoracic spine. DTPI Sacrococcygeal to L Buttocks (L)7.4cm x (W)4.3cm.Base of wound is purpuric and indurated with surrounding non-blanching erythema. Two Partial thickness pressure injuries noted to L buttocks(Proximal)2.5cm x (W) 4.6cm. Base of wound is moist and viable.Surrounding Non-Blanching erythema.( Distal)1cm x (W)1cm. Base of wound is moist and viable.Surrounding Non- Blanching erythema. Perineal area is erythematous and moist . A purpuric area that is fluctuant noted at Perineum. Bilat lower ext are edematous. 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 A second smaller serous [place] noted to dorso/lateral R foot (L)2cm x(W)2.2cm.Scattered small purpuric areas noted to heads of 2nd ,3rd,4th metatarsals. Multiple purpuric areas noted to distal/lateral L tibia and L foot. Elongated Purpuric Area with Marginal erythema along edges noted to distal/ Lateral L tibia(L)7cm x (W)1.8cm. L Heel /L Foot is an irregular shaped Purpuric area with marginal erythema without fluctuance/induration (L)3cm x (W)9.5cm. L Lateral Malleolus DTPI(L)1.5cm x (W)1.9cm.. Base of injury is fluctuant, purpuric with Maroon borders. DTPI distal/lateral L foot (L)1.5cm x (W)1.5cm. Base of injury is maroon with fluctuance. L Heel is boggy with non-blanchable erythema. Tx.Plan: Cleanse wound L Scapula with Saline. Apply Therahoney. Apply Cavilon Skin Barrier Periwound. Cover with Optifoam Drsg every 3 days and prn. Apply Cavilon Skin Barrier to Purpuric areas L Scapula. Cover with Optifoam drsg every 3 days and prn. Apply Moisture Barrier Paste to Sacrum and L Buttocks. Cover each site with Optifoam drsgs. Change every 3 days and PRN. Apply Cavilon Skin Barrier [place] to Blisters R foot. Cover with ABD Pads and wrap with Kerlix every 3 days and prn. Apply Cavilon Barrier [place] To Purpuric areas Distal L tibia and L foot. Cover with ABD Pads and wrap with Kerlix every 3 days and prn. Reposition at least every 2hors or as tolerated . Off-load heels with Pillow. Place Pillow between knees. APM/CAILIN Mattress. (7) Anemia (8) NSTEMI (non-ST elevated myocardial infarction) (9) Feeding by G-tube Assessment & Plan: DAILY ESTIMATED NEEDS: Needs based on wound, critical care 47.5kg abw 25-30 kcals/kg [id number] total kcals 1.25-2 g protein/kg 59-95 g total protein 25-30ml/kcal mL/kg [id number] total fluid mLs NUTRITION DIAGNOSIS: Swallowing difficulty r/t respiratory status as evidenced by pt is trach and peg dep. CURRENT TF: NPO for EGD ENTERAL NUTRITION RECOMMENDATIONS: Osmolite 1.2 goal of 45ml/hr x24 hrs + Prosource 1 pack daily to provide 1080ml, 1296 kcal, 60g + 11g pro, 886ml free H2O - As medically able, start Osmolite low fiber TF @low rate 25ml/hr for 6 hrs. - Advance as tolerated 10ml/hr q4-6 hrs to goal - Flush per MD/ HOB over 30 degrees - Add Prosource 1 pack daily to better meet est pro needs. ADDITIONAL RECOMMENDATIONS: 1) F/up w/ WC eval, add GOLDIE BID w/ TF order 2) Per SN[facility] : 4'8" (56 inches) and 142 lbs/64.55kg 3) Monitor renal function, lytes; need for renal TF formula 4) Monitor BG and need for carb control formula -> rec accuchecks + niss (10) HIRO (acute kidney injury) (11) Chronic vegetative state (12) ICH (intracerebral hemorrhage) Vickey Galvez May 13, 2020 11:34
[2020-05-13] MEDS ORDERED: Tubing IV Secondary IV ONE (11:47)
[2020-05-13] MEDS ORDERED: NS 275ml ONE (11:47)
--- NOTE | 2020-05-13 11:53 | Diagnostic Imaging Report ---
Procedure: XRAY Chest 1v Reason for study: Reason For Exam: [id number] Comparison films: 05/10/2020. FINDINGS: Tracheostomy remains in place. Extensive bilateral alveolar airspace disease unchanged. Cardiomegaly and effusions unchanged. The bony thorax appear unremarkable. IMPRESSION: NO SIGNIFICANT CHANGE COMPARED TO PREVIOUS EXAM.
--- NOTE | 2020-05-13 11:53 | Cardiac Electrophysiology PN ---
Assessment/Plan Assessment/Plan 1. Non-ST elevation myocardial infarction with troponin of 3.2, down to 2 and 1.9. Due to demand ischemia in view hemoglobin of only 6 as well as renal failure. Her EKG shows sinus rhythm with nonspecific ST-T wave abnormality and no ST elevation. Added Lopressor 12.5 bid 2. Atrial fib with tachy rachel syndrome. HR 30s and up to 150s. Had to resume Lopressor 12.5 bid yesterday in view of tachy to 150s. 3. Volume overload. BNP of 19,000 as well as 4+ edema. Likely intravascularly depleted as her BUN is 112 and creatinine 1.8. Improved to 62/1.2. Fu by Dr. Minor. 4. Severe hyponatremia, Sodium 125. 5. 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 6. Dysphagia, status post PEG placement. 7. Acute renal failure. 8. Severe Anemia. Got PRBC and is on IV antibiotic per ID. S/P EGD. Colonscopy rescheduled for today 9. S/P Septic shock with lactic acidosis and Hb 6. DW RN and Dr Kauffman Subjective Subjective Remained in atrial fib but had RVR episode up to 150s and started on Lopressor 12.5 bid. On 35% Fio2 on Vent via Trach. EGD was negative. Colonoscopy rescheduled for 1 pm today. S/P Abd CT yesterday Objective Last 24 Hour Vital Signs Date Time Temp Pulse Resp B/P (MAP) Pulse Ox O2 Delivery O2 Flow Rate FiO2 05/13/20 10:57 109 21 35 05/13/20 09:49 120 140/95 05/13/20 08:00 97.5 106 17 140/96 (111) 99 106 160 106 05/13/20 07:54 121 05/13/20 06:40 124 22 35 05/13/20 05:17 121 19 35 05/13/20 04:00 35 05/13/20 04:00 Mechanical Ventilator 05/13/20 04:00 98.2 113 17 156/97 (116) 100 05/13/20 03:36 118 05/13/20 03:20 113 19 35 05/13/20 01:20 117 20 35 05/13/20 00:04 128 145/99 05/13/20 00:00 125 05/13/20 00:00 35 05/13/20 00:00 Mechanical Ventilator 05/13/20 00:00 97.7 117 22 145/99 (114) 100 05/12/20 22:33 130 19 35 05/12/20 21:57 98.7 05/12/20 21:10 125 19 35 05/12/20 20:15 112 19 35 05/12/20 20:00 98.9 151 27 157/95 (115) 100 05/12/20 20:00 Mechanical Ventilator 05/12/20 19:26 120 05/12/20 17:07 120 20 35 05/12/20 16:00 35 05/12/20 16:00 98.2 121 27 133/104 (114) 100 05/12/20 16:00 Mechanical Ventilator 05/12/20 16:00 106 05/12/20 15:20 114 20 35 05/12/20 13:25 114 25 35 05/12/20 12:30 111 20 150/98 (115) 100 05/12/20 12:00 35 05/12/20 12:00 Mechanical Ventilator 05/12/20 12:00 98.2 109 22 149/102 (118) 100 Intake and Output 05/12/20 05/13/20 19:00 07:00 Intake Total 215 ml 440 ml Output Total 750 ml 600 ml Balance -535 ml -160 ml IV Total 215 ml 440 ml Output Urine Total 750 ml 600 ml # Bowel Movements 1 Laboratory Tests Test 05/13/20 03:57 White Blood Count 7.0 K/UL (4.8-10.8) Red Blood Count 2.88 M/UL (4.20-5.40) L Hemoglobin 8.7 G/DL (12.0-16.0) L Hematocrit 26.0 % (37.0-47.0) L Mean Corpuscular Volume 90 FL (80-99) Mean Corpuscular Hemoglobin 30.2 PG (27.0-31.0) Mean Corpuscular Hemoglobin Concent 33.4 G/DL (32.0-36.0) Red Cell Distribution Width 13.4 % (11.6-14.8) Platelet Count 182 K/UL (150-450) Mean Platelet Volume 6.7 FL (6.5-10.1) Neutrophils (%) (Auto) 77.9 % (45.0-75.0) H Lymphocytes (%) (Auto) 15.6 % (20.0-45.0) L Monocytes (%) (Auto) 4.7 % (1.0-10.0) Eosinophils (%) (Auto) 1.0 % (0.0-3.0) Basophils (%) (Auto) 0.8 % (0.0-2.0) Sodium Level 142 MMOL/L (136-145) Potassium Level 4.2 MMOL/L (3.5-5.1) Chloride Level 108 MMOL/L (98-107) H Carbon Dioxide Level 24 MMOL/L (21-32) Anion Gap 11 mmol/L (5-15) Blood Urea Nitrogen 43 mg/dL (7-18) H Creatinine 1.1 MG/DL (0.55-1.30) Estimat Glomerular Filtration Rate 47.0 mL/min (>60) Glucose Level 72 MG/DL (74-106) L Calcium Level 8.1 MG/DL (8.5-10.1) L Total Bilirubin 0.8 MG/DL (0.2-1.0) Aspartate Amino Transf (AST/SGOT) 38 U/L (15-37) H Alanine Aminotransferase (ALT/SGPT) 40 U/L (12-78) Alkaline Phosphatase 113 U/L (46-116) Pro-B-Type Natriuretic Peptide 31849 pg/mL (0-125) H Total Protein 5.1 G/DL (6.4-8.2) L Albumin 2.0 G/DL (3.4-5.0) L Globulin 3.1 g/dL Albumin/Globulin Ratio 0.6 (1.0-2.7) L Microbiology Date/Time Source Procedure Growth Status 05/12/20 03:20 Blood Blood Culture - Preliminary NO GROWTH AFTER 24 HOURS Resulted 05/11/20 09:30 Blood Blood Culture - Preliminary NO GROWTH AFTER 24 HOURS Resulted Objective HEAD AND NECK: Status post tracheostomy, which is fresh. LUNGS: Coarse rhonchi. CARDIOVASCULAR: Regular S1 and S2 with no gallop. ABDOMEN: Status post G-tube. EXTREMITIES: 3+ pitting edema. Renard Erickson MD May 13, 2020 11:53
--- NOTE | 2020-05-13 11:56 | Diagnostic Imaging Report ---
Clinical Indication: Abdominal pain, bacteremia, fungemia Technique: Patient given enteric contrast via gastrostomy. IV administration nonionic contrast. Venous phase spiral acquisition obtained through the abdomen and pelvis. Multiplanar reconstructions were generated. Total dose length product 474 mGycm. CTDIvol(s) 9 mGy. Dose reduction achieved using automated exposure control Comparison: none Findings: There are colonic diverticula. There also may be a small diverticulum coming off of the terminal ileum. The appendix is not definitely identified, but no findings to suggest acute appendicitis are evident. No small bowel distention. Ingested contrast is seen throughout the entirety of the GI tract. No small bowel wall thickening. There is a small amount of ascites fluid present, seen within the pelvis and over the dome of the liver. No free intraperitoneal gas. There is a gastrostomy tube in place. The gastrostomy tents the superior wall of the gastric body cephalad and the bumper is located immediately anterior to the left hepatic lobe. However, the tube tip is clearly intraluminal as all of the provided contrast is intraluminal and there is no evidence of contrast extravasation. There is equivocal mild wall thickening of the distal gastric antrum, which is nondistended. The distal esophagus and duodenum are unremarkable. The gallbladder wall appears very edematous. Small gallstones are seen within the gallbladder lumen. The liver, bile ducts, pancreas, spleen, adrenals are unremarkable. The kidneys demonstrate numerous cysts. There also appears to be heterogeneous renal parenchymal opacification bilaterally. No renal or ureteral calculi, hydronephrosis, or hydroureter. The uterus demonstrates multiple calcifications, presumably old degenerated fibroids. The bladder is empty, contains a Quiñonez catheter. The included lower thorax demonstrates that the heart is enlarged. There are large bilateral pleural effusions there there is resultant compressive atelectasis of much of both lower lobes. There is also some lower lobe consolidation bilaterally. Hazy parenchymal opacities are also seen in the aerated portions of the lower lungs. The bones demonstrate degenerative spondylosis changes. There is extensive diffuse edema of the subcutaneous fat and a lesser extent the abdominal and retroperitoneal fat. Impression: Heterogeneous bilateral renal parenchymal opacification, suspicious for nephritis Cardiomegaly Evidence of anasarca, with large bilateral pleural effusions, mild ascites, edema of the subcutaneous fat. Hazy pulmonary parenchymal opacity likely also reflects pulmonary edema Bilateral pulmonary parenchymal compressive atelectasis and likely consolidation Colonic diverticulosis. No evidence of diverticulitis Gastrostomy Cholelithiasis. Edematous gallbladder wall is probably a manifestation of anasarca, but possibility of acute cholecystitis should also be considered. Correlate with clinical findings. Equivocal mild wall thickening of the distal gastric antrum, probably artifact of under distention, gastritis also possible. Other findings noted, including Quiñonez catheter, evidence of old degenerated fibroids, numerous renal cysts The CT scanner at [facility] is accredited by the [employer] and the scans are performed using protocols designed to limit radiation exposure to as low as reasonably achievable to attain images of sufficient resolution adequate for diagnostic evaluation.
[2020-05-13 12:00] VITALS: BP 173/113
--- NOTE | 2020-05-13 12:08 | Pre-Procedure Note/Attestation ---
Pre-Procedure Note/Attestation Complete Prior to Procedure Planned Procedure: not applicable Procedure Narrative: colonoscopy Indications for Procedure Pre-Operative Diagnosis: gib Attestation I attest that I discussed the nature of the procedure; its benefits; risks and complications; and alternatives (and the risks and benefits of such alternatives ), prior to the procedure, with the patient (or the patient's legal sales representative printing paper). I attest that, if there was a reasonable possibility of needing a blood transfusion, the patient (or the patient's legal sales representative printing paper) was given the [facility] standardized written summary, pursuant to the [employer] Blood Safety Act ([place] Health and Safety Code # 1645, as amended). I attest that I re-evaluated the patient just prior to the surgery and that there has been no change in the patient's H&P, except as documented below: Jaylon Panchal MD May 13, 2020 12:08
--- NOTE | 2020-05-13 12:54 | NUR ---
DISCHARGE PLANNING: NOTE DC REQUESTED PENDING EGD/COLO RESULTS CLINICALS FAXED TO [facility] AT [place] AWAITING REVIEW
--- NOTE | 2020-05-13 13:04 | Nephrology Progress Note ---
Assessment/Plan Problem List: (1) HIRO (acute kidney injury) (2) NSTEMI (non-ST elevated myocardial infarction) (3) Anemia (4) Chronic respiratory failure (5) Hypotension (6) Hyponatremia (7) ICH (intracerebral hemorrhage) (8) Sepsis Assessment Acute renal failure, mainly prerenal picture Non-STEMI: Troponin 2.1 Chronic ventilatory dependent respiratory failure, history of intracranial bleed Septic shock with lactic acidosis, possible UTI, possible pneumonia Severe hyponatremia Severe anemia, history of GI bleed Hypertension GERD Plan May 13: Lab reviewed. Renal parameters within normal limit. Continue to monitor electrolytes. Continue per consultants. May 12: Lab reviewed. Serum creatinine normal. Patient on Lasix. Will stop IV fluid. Will monitor renal parameters and electrolytes. May 11: Labs reviewed. Serum creatinine normalized. Patient edematous. Will decrease IV fluid. Will give Lasix IV 20 mg daily. Potassium supplement. Continue to monitor renal parameters. Discussed with [place]. Hydrate Hold BP medications, blood pressure is low IV Protonix, Carafate Antibiotics per ID Monitor renal parameters and electrolytes Potassium supplement as needed Transfusion as needed Per consultants Subjective ROS Limited/Unobtainable: Yes Objective Objective Last 24 Hour Vital Signs Date Time Temp Pulse Resp B/P (MAP) Pulse Ox O2 Delivery O2 Flow Rate FiO2 05/13/20 10:57 109 21 35 05/13/20 09:49 120 140/95 05/13/20 08:00 97.5 106 17 140/96 (111) 99 106 160 106 05/13/20 07:54 121 05/13/20 06:40 124 22 35 05/13/20 05:17 121 19 35 05/13/20 04:00 35 05/13/20 04:00 Mechanical Ventilator 05/13/20 04:00 98.2 113 17 156/97 (116) 100 05/13/20 03:36 118 05/13/20 03:20 113 19 35 05/13/20 01:20 117 20 35 05/13/20 00:04 128 145/99 05/13/20 00:00 125 05/13/20 00:00 35 05/13/20 00:00 Mechanical Ventilator 05/13/20 00:00 97.7 117 22 145/99 (114) 100 05/12/20 22:33 130 19 35 05/12/20 21:57 98.7 05/12/20 21:10 125 19 35 05/12/20 20:15 112 19 35 05/12/20 20:00 98.9 151 27 157/95 (115) 100 05/12/20 20:00 Mechanical Ventilator 05/12/20 19:26 120 05/12/20 17:07 120 20 35 05/12/20 16:00 35 05/12/20 16:00 98.2 121 27 133/104 (114) 100 05/12/20 16:00 Mechanical Ventilator 05/12/20 16:00 106 05/12/20 15:20 114 20 35 05/12/20 13:25 114 25 35 Intake and Output 05/12/20 05/13/20 19:00 07:00 Intake Total 215 ml 440 ml Output Total 750 ml 600 ml Balance -535 ml -160 ml IV Total 215 ml 440 ml Output Urine Total 750 ml 600 ml # Bowel Movements 1 Laboratory Tests 05/13/20 03:57: White Blood Count 7.0, Red Blood Count 2.88L, Hemoglobin 8.7L, Hematocrit 26.0L , Mean Corpuscular Volume 90, Mean Corpuscular Hemoglobin 30.2, Mean Corpuscular Hemoglobin Concent 33.4, Red Cell Distribution Width 13.4, Platelet Count 182, Mean Platelet Volume 6.7, Neutrophils (%) (Auto) 77.9H, Lymphocytes ( %) (Auto) 15.6L, Monocytes (%) (Auto) 4.7, Eosinophils (%) (Auto) 1.0, Basophils (%) (Auto) 0.8, Sodium Level 142, Potassium Level 4.2, Chloride Level 108H, Carbon Dioxide Level 24, Anion Gap 11, Blood Urea Nitrogen 43H, Creatinine 1.1, Estimat Glomerular Filtration Rate 47.0, Glucose Level 72L, Calcium Level 8.1L, Total Bilirubin 0.8, Aspartate Amino Transf (AST/SGOT) 38H, Alanine Aminotransferase (ALT/SGPT) 40, Alkaline Phosphatase 113, Pro-B-Type Natriuretic Peptide 96104N, Total Protein 5.1L, Albumin 2.0L, Globulin 3.1, Albumin/Globulin Ratio 0.6L Height (Feet): 5 Height (Inches): 1.00 Weight (Pounds): 161 General Appearance: no apparent distress EENT: other - Trach and vent Cardiovascular: tachycardia Respiratory/Chest: decreased breath sounds Abdomen: distended Dov Minor MD May 13, 2020 13:04
--- NOTE | 2020-05-13 13:18 | Pulmonolgy Critical Care Note ---
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 Discussed with: nurses, consultants, 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 - Objective Last 24 Hour Vital Signs Date Time Temp Pulse Resp B/P (MAP) Pulse Ox O2 Delivery O2 Flow Rate FiO2 05/13/20 11:29 112 05/13/20 10:57 109 21 35 05/13/20 09:49 120 140/95 05/13/20 08:00 97.5 106 17 140/96 (111) 99 106 160 106 05/13/20 07:54 121 05/13/20 06:40 124 22 35 05/13/20 05:17 121 19 35 05/13/20 04:00 35 05/13/20 04:00 Mechanical Ventilator 05/13/20 04:00 98.2 113 17 156/97 (116) 100 05/13/20 03:36 118 05/13/20 03:20 113 19 35 05/13/20 01:20 117 20 35 05/13/20 00:04 128 145/99 05/13/20 00:00 125 05/13/20 00:00 35 05/13/20 00:00 Mechanical Ventilator 05/13/20 00:00 97.7 117 22 145/99 (114) 100 05/12/20 22:33 130 19 35 05/12/20 21:57 98.7 05/12/20 21:10 125 19 35 05/12/20 20:15 112 19 35 05/12/20 20:00 98.9 151 27 157/95 (115) 100 05/12/20 20:00 Mechanical Ventilator 05/12/20 19:26 120 05/12/20 17:07 120 20 35 05/12/20 16:00 35 8/20/20 16:00 98.2 121 27 133/104 (114) 100 05/12/20 16:00 Mechanical Ventilator 05/12/20 16:00 106 05/12/20 15:20 114 20 35 05/12/20 13:25 114 25 35 Status: awake Condition: critical HEENT: atraumatic Heart: HR/BP unstable, regular Abdomen: non-tender Extremities: no C/C/E Decubiti: location Micro: Microbiology Date/Time Source Procedure Growth Status 05/12/20 03:20 Blood Blood Culture - Preliminary NO GROWTH AFTER 24 HOURS Resulted 05/11/20 09:30 Blood Blood Culture - Preliminary NO GROWTH AFTER 24 HOURS Resulted Critical Care - Subjective FI02: 35 Vent Support Breath Rate: 10 Vent Support Mode: AC Vent Tidal Volume: 400 Sputum Amount: Small PEEP: 5.0 PIP: 33 I&O: Intake and Output 05/12/20 05/13/20 19:00 07:00 Intake Total 215 ml 440 ml Output Total 750 ml 600 ml Balance -535 ml -160 ml IV Total 215 ml 440 ml Output Urine Total 750 ml 600 ml # Bowel Movements 1 Labs: Laboratory Tests Test 05/13/20 03:57 White Blood Count 7.0 K/UL (4.8-10.8) Red Blood Count 2.88 M/UL (4.20-5.40) L Hemoglobin 8.7 G/DL (12.0-16.0) L Hematocrit 26.0 % (37.0-47.0) L Mean Corpuscular Volume 90 FL (80-99) Mean Corpuscular Hemoglobin 30.2 PG (27.0-31.0) Mean Corpuscular Hemoglobin Concent 33.4 G/DL (32.0-36.0) Red Cell Distribution Width 13.4 % (11.6-14.8) Platelet Count 182 K/UL (150-450) Mean Platelet Volume 6.7 FL (6.5-10.1) Neutrophils (%) (Auto) 77.9 % (45.0-75.0) H Lymphocytes (%) (Auto) 15.6 % (20.0-45.0) L Monocytes (%) (Auto) 4.7 % (1.0-10.0) Eosinophils (%) (Auto) 1.0 % (0.0-3.0) Basophils (%) (Auto) 0.8 % (0.0-2.0) Sodium Level 142 MMOL/L (136-145) Potassium Level 4.2 MMOL/L (3.5-5.1) Chloride Level 108 MMOL/L (98-107) H Carbon Dioxide Level 24 MMOL/L (21-32) Anion Gap 11 mmol/L (5-15) Blood Urea Nitrogen 43 mg/dL (7-18) H Creatinine 1.1 MG/DL (0.55-1.30) Estimat Glomerular Filtration Rate 47.0 mL/min (>60) Glucose Level 72 MG/DL (74-106) L Calcium Level 8.1 MG/DL (8.5-10.1) L Total Bilirubin 0.8 MG/DL (0.2-1.0) Aspartate Amino Transf (AST/SGOT) 38 U/L (15-37) H Alanine Aminotransferase (ALT/SGPT) 40 U/L (12-78) Alkaline Phosphatase 113 U/L (46-116) Pro-B-Type Natriuretic Peptide 84253 pg/mL (0-125) H Total Protein 5.1 G/DL (6.4-8.2) L Albumin 2.0 G/DL (3.4-5.0) L Globulin 3.1 g/dL Albumin/Globulin Ratio 0.6 (1.0-2.7) L Chadwick Parry MD May 13, 2020 13:18
--- NOTE | 2020-05-13 14:18 | Endoscopy Procedure Note ---
Endoscopy Procedure Note General Indication for Procedure: GIB Procedures Performed: colonoscopy Operative Findings/Diagnosis: DIVERTICULOSIS Specimen: none Pt Tolerated Procedure Well: Yes Estimated Blood Loss: none Anesthesia Anesthesiologist: DAVID Anesthesia: MAC Inserted Devices Implant(s) used?: No GI Core Measures 50 yrs or older w/o bx or poly: Not Applicable 10yrs. F/U recommended: Not Applicable Jaylon Panchal MD May 13, 2020 14:18
--- NOTE | 2020-05-13 14:28 | Anethesia Preoperative Eval ---
Anesthesia Pre-op PMH/ROS General Date of Evaluation: May 13, 2020 Time of Evaluation: 14:00 Anesthesiologist: shani ASA Score: ASA 4 Mallampati Score Class I : Soft palate, uvula, fauces, pillars visible Class II: Soft palate, uvula, fauces visible Class III: Soft palate, base of uvula visible Class IV: Only hard plate visible Mallampati Classification: Class III Surgeon: brian Diagnosis: anemia Surgical Procedure: colonoscopy Anesthesia History: none Family History: no anesthesia problems Allergies: Coded Allergies: No Known Allergies (Unverified , 05/08/20) Medications: see eMAR Patient NPO?: Yes NPO Date: May 11, 2020 NPO Time: 00:01 Past Medical History Cardiovascular: Reports: HTN, CAD, [place], arrhythmia Pulmonary: Reports: other - Resp Failure, trach, mech ventilated; Denies: asthma, COPD, MAGO Gastrointestinal/Genitourinary: Reports: GERD, CRI; Denies: ESRD, other Neurologic/Psychiatric: Reports: dementia; Denies: CVA, depression/anxiety, TIA, other Endocrine: Denies: DM, hypothyroidism, steroids, other HEENT: Denies: cataract (L), cataract (R), glaucoma, [place] (L), [place] (R), other Hematology/Immune: Reports: anemia; Denies: DVT, bleeding disorder, other Musculoskeletal/Integumentary: Denies: OA, RA, DJD, DDD, edema, other Other: obesity PMH Narrative: # Anemia rule out underlying gi bleed # NSTEMI (non-ST elevated myocardial infarction) with trop elevation - # HIRO (acute kidney injury) --> cr 1.8-->1.5 # Hyponatremia/Hypokalemoa # Respiratory failure s/p trach # PNA on cxr # Dysphagia s/p peg Anesthesia Pre-op Phys. Exam Physician Exam Last Vital Signs Date Time Temp Pulse Resp B/P (MAP) Pulse Ox O2 Delivery O2 Flow Rate FiO2 05/13/20 11:29 112 05/13/20 10:57 21 35 05/13/20 09:49 140/95 05/13/20 08:00 97.5 99 05/13/20 04:00 Mechanical Ventilator Constitutional: other - weakness, dementia, anemia, Neurologic: other - demented Cardiovascular: other - afib Respiratory: CTA Gastrointestinal: S/NT/ND Airway Exam Mallampati Classification 3 Mallampati Score: Class III MO: limited ROM: limited Anesthesia Pre-op A/P Labs Hematology Test 05/13/20 03:57 White Blood Count 7.0 K/UL (4.8-10.8) Red Blood Count 2.88 M/UL (4.20-5.40) L Hemoglobin 8.7 G/DL (12.0-16.0) L Hematocrit 26.0 % (37.0-47.0) L Mean Corpuscular Volume 90 FL (80-99) Mean Corpuscular Hemoglobin 30.2 PG (27.0-31.0) Mean Corpuscular Hemoglobin Concent 33.4 G/DL (32.0-36.0) Red Cell Distribution Width 13.4 % (11.6-14.8) Platelet Count 182 K/UL (150-450) Mean Platelet Volume 6.7 FL (6.5-10.1) Neutrophils (%) (Auto) 77.9 % (45.0-75.0) H Lymphocytes (%) (Auto) 15.6 % (20.0-45.0) L Monocytes (%) (Auto) 4.7 % (1.0-10.0) Eosinophils (%) (Auto) 1.0 % (0.0-3.0) Basophils (%) (Auto) 0.8 % (0.0-2.0) Chemistry Test 05/13/20 03:57 Sodium Level 142 MMOL/L (136-145) Potassium Level 4.2 MMOL/L (3.5-5.1) Chloride Level 108 MMOL/L (98-107) H Carbon Dioxide Level 24 MMOL/L (21-32) Anion Gap 11 mmol/L (5-15) Blood Urea Nitrogen 43 mg/dL (7-18) H Creatinine 1.1 MG/DL (0.55-1.30) Estimat Glomerular Filtration Rate 47.0 mL/min (>60) Glucose Level 72 MG/DL (74-106) L Calcium Level 8.1 MG/DL (8.5-10.1) L Total Bilirubin 0.8 MG/DL (0.2-1.0) Aspartate Amino Transf (AST/SGOT) 38 U/L (15-37) H Alanine Aminotransferase (ALT/SGPT) 40 U/L (12-78) Alkaline Phosphatase 113 U/L (46-116) Pro-B-Type Natriuretic Peptide 42785 pg/mL (0-125) H Total Protein 5.1 G/DL (6.4-8.2) L Albumin 2.0 G/DL (3.4-5.0) L Globulin 3.1 g/dL Albumin/Globulin Ratio 0.6 (1.0-2.7) L Studies Pre-op Studies: EKG - afib hr 100 Risk Assessment & Plan Assessment: covid neg Plan: mac Status Change Before Surgery: No Pre-Antibiotics Drug: none Colleen Dasilva SMT TECHNICIAN May 13, 2020 14:28
--- NOTE | 2020-05-13 14:29 | Immediate Post-Op Evaluation ---
Immediate Post-Op Evalulation Immediate Post-Op Evalulation Procedure: EGD Date of Evaluation: May 13, 2020 Time of Evaluation: 14:29 IV Fluids: 200 Blood Pressure Systolic: 125 Blood Pressure Diastolic: 70 Pulse Rate: 100 Respiratory Rate: 10 O2 Sat by Pulse Oximetry: 98 Nausea: No Vomiting: No Complications none Patient Status: reacts, patent, ventilated - back to oringal settings; AC 35% 10 400 Peep 5 Hydration Status: adequate Drug: none Colleen Dasilva CRNA May 13, 2020 14:29
--- NOTE | 2020-05-13 15:35 | 48 Hour Post Anesthesia Eval ---
Post Anesthesia Evaluation Procedure: colonscopy Date of Evaluation: May 13, 2020 Time of Evaluation: 15:35 Blood Pressure Systolic: 145 0: 60 Pulse Rate: 100 Respiratory Rate: 20 O2 Sat by Pulse Oximetry: 98 Airway: patent, other - mech vent - see chart Nausea: No Vomiting: No Hydration Status: adequate Cardiopulmonary Status: stable Mental Status/LOC: patient returned to baseline Follow-up Care/Observations: na Post-Anesthesia Complications: none Follow-up care needed: N/A Colleen Dasilva CRNA May 13, 2020 15:35
--- NOTE | 2020-05-13 15:49 | NUR ---
INSURANCE PROGRESS NOTES FOR 05/13 FAXED TO [facility] FAX CLINICALS TO [facility] P:[phone] F:[phone] COVER LETTER INDICATES PT IS BEING DC TODAY
--- NOTE | 2020-05-13 15:52 | NUR ---
DISCHARGE DISPOSITION: PLEASE READ PATIENT TO BE DISCHARGED TO [address] [facility] [address] T: [phone] [place] W/ RT ETA 1800 CM S/W RAQUEL DELAROSA [phone] WHO IS AGREEABLE TO DC TO SNF TODAY TRANSFER REPORT TO BE PROVIDED
[2020-05-13 16:00] VITALS: BP 172/111
--- NOTE | 2020-05-13 17:30 | Procedure Note ---
DATE OF PROCEDURE: 05/13/2020 SURGEON: Jaylon Panchal MD. PROCEDURE: Colonoscopy. ANESTHESIA: Per [employer], Colleen Tarrillnitin. INSTRUMENT: Olympus adult flexible colonoscope. INDICATION: GI bleeding. REASON FOR PROCEDURE: The procedure, risks, benefits, and possible consequences, including hemorrhage, aspiration, perforation and infection, and alternative treatments, were explained to the patient/legal guardian by Dr. Jaylon Panchal and the patient/legal guardian understood and accepted these risks. PROCEDURE IN DETAIL: After informed consent was obtained and the patient was adequately sedated, first rectal exam was performed, which was positive for internal hemorrhoids. Then, the scope was advanced from the rectum into the cecum documented by appendix orifice, ileocecal valve, and right upper quadrant palpation. Quality of prep was good. The patient had diverticulosis in the right colon, otherwise normal colonoscopy examination. Retroflexion of rectum showed evidence of internal hemorrhoids. SUMMARY OF FINDINGS: 1. Diverticulosis of right colon. 2. Internal hemorrhoids. RECOMMENDATIONS: 1. Resume tube feeding. 2. Monitor H and H, transfuse as needed. Jaylon Panchal M.D. DR: NANCIE JOB#: [id number] CC:
[2020-05-13 17:38] VITALS: BP 170/98
--- NOTE | 2020-05-13 17:50 | NUR ---
NURSE NOTES: Gave report to ROSALINO Ace at [facility]. Waiting for transport.
--- NOTE | 2020-05-13 18:45 | NUR ---
NURSE NOTES: Samir from transport called to update orange picker time to 1930. Charge nurse notified.
--- NOTE | 2020-05-14 01:00 | Procedure Note ---
DATE OF PROCEDURE: 05/13/2020 ENDOSCOPIST: Jaylon Panchal MD PROCEDURE PERFORMED: Colonoscopy. ANESTHESIA: Per SINGER BACK TENDER, Colleen Tarrillion. INSTRUMENT USED: Olympus adult flexible colonoscope. INDICATIONS FOR PROCEDURE: GI bleeding. The procedure, risks, benefits, and possible consequences, including hemorrhage, aspiration, perforation and infection, and alternative treatments, were explained to the patient/legal guardian by Dr. Jaylon Panchal and the patient/legal guardian understood and accepted these risks. DESCRIPTION OF PROCEDURE: After informed consent was obtained and the patient was adequately sedated, rectal exam was performed, which showed some internal hemorrhoids. Then, the scope was advanced into the rectum to the cecum documented by appendix orifice, ileocecal valve, and right upper quadrant palpation. Quality of prep was good. The patient had no active GI bleeding at this time. no polyp was seen. Retroflexion in the rectum showed evidence of internal hemorrhoids. SUMMARY OF FINDINGS: 1. 2. Internal hemorrhoids. RECOMMENDATIONS: . At this time, there is no evidence of . Jaylon Panchal M.D. DR: FER JOB#: [id number] CC:
--- NOTE | 2020-05-14 06:45 | Discharge Summary ---
DATE OF ADMISSION: 05/08/2020 DATE OF DISCHARGE: 05/13/2020 This is one of third admission to [facility] of this 89-year-old lady because of drop in hemoglobin and hematocrit. HISTORY OF PRESENT ILLNESS: Patient is a resident of an extended care facility subacute unit where she has been in stable condition for the last several days. She is known to have several chronic medical syndromes, but has been stable on current medications. syndrome and status post CVA, encephalopathy, respirator dependent with tracheostomy, and fed by gastrostomy tube. She has diabetes mellitus, hyperlipidemia, and hypovitaminosis D. On the day of admission, assessment, she was found to have dropped from 11.2 to 6.9. She was transferred to [facility] ER and was admitted. HOSPITAL COURSE: Upon admission, patient underwent clinical, biological, and imaging studies. Clinical assessment revealed patient with borderline blood pressure and tachycardia and hemoglobin of 6.0, hematocrit 18.3, WBC was 9.5, and platelets 153. Over the next several days, patient was transfused 2 units of packed RBC. She has been assessed by clinical laboratory medical director, project specialist, infectious disease specialist, and pantograph machine set up operator. Because of her drop in hemoglobin and hematocrit imaging and procedure studies. Imaging study included chest x-ray, venous duplex scan, abdomen and pelvic CT, and multiple chest x-rays. She does have an upper GI endoscopy and lower GI endoscopy done, which revealed a source of bleeding. Her urinalysis showed only small amount of RBCs in the urine, 15 to 20 per high-powered field. Her PT and PTT were normal. The patient was on new oral which was discontinued. At the end of the workup, no cause of bleeding was identified, and her drop in hemoglobin and hematocrit was considered to be secondary to . At the time of her discharge, she is hemodynamically stable. Her blood pressure is elevated at Cardizem 90 mg prior to discharge. She will be placed on Procrit 10,000 units on Saturday, Saturday, and Saturday and iron supplement and she will be seen in an extended care facility as of 24 hours after discharge. Anita Kauffman M.D. DR: KRISHAN JOB#: [id number] CC:
== END 2020-05-13 19:30 | DRG 870 ==
LOC: EDBD 10:38 → EMR 11:05 → EDBEDREQ 12:42 → 2W 13:03
PROC: 30233N1 Transfusion of Nonautologous Red Blood Cells into Peripheral Vein, Percutaneous Approach (ICD-10-PCS; principal; 2020-05-08)
PROC: 5A1955Z Respiratory Ventilation, Greater than 96 Consecutive Hours (ICD-10-PCS; 2020-05-08)
PROC: 0DB78ZX Excision of Stomach, Pylorus, Via Natural or Artificial Opening Endoscopic, Diagnostic (ICD-10-PCS; 2020-05-11)
PROC: 0DJD8ZZ Inspection of Lower Intestinal Tract, Via Natural or Artificial Opening Endoscopic (ICD-10-PCS; 2020-05-13)
DX: A41.9 Sepsis, unspecified organism (principal); I21.4 Non-ST elevation (NSTEMI) myocardial infarction; R65.21 Severe sepsis with septic shock; J18.9 Pneumonia, unspecified organism; N17.9 Acute kidney failure, unspecified; E87.1 Hypo-osmolality and hyponatremia; N39.0 Urinary tract infection, site not specified; J96.10 Chronic respiratory failure, unspecified whether with hypoxia or hypercapnia; Z43.1 Encounter for attention to gastrostomy; K92.2 Gastrointestinal hemorrhage, unspecified; R40.3 Persistent vegetative state; Z99.11 Dependence on respirator [ventilator] status; Z43.0 Encounter for attention to tracheostomy; D64.9 Anemia, unspecified; E87.6 Hypokalemia; R13.10 Dysphagia, unspecified; Z79.4 Long term (current) use of insulin; E11.9 Type 2 diabetes mellitus without complications; E87.70 Fluid overload, unspecified; K29.70 Gastritis, unspecified, without bleeding; K57.90 Diverticulosis of intestine, part unspecified, without perforation or abscess without bleeding; K64.8 Other hemorrhoids; Y95 Nosocomial condition; L89.126 Pressure-induced deep tissue damage of left upper back; L89.156 Pressure-induced deep tissue damage of sacral region; L89.326 Pressure-induced deep tissue damage of left buttock; L89.896 Pressure-induced deep tissue damage of other site; L89.322 Pressure ulcer of left buttock, stage 2; L89.526 Pressure-induced deep tissue damage of left ankle; I48.91 Unspecified atrial fibrillation; I69.198 Other sequelae of nontraumatic intracerebral hemorrhage
CPT/HCPCS: 36415; 71045; 74177; 80048; 80053; 81003; 82270; 82533; 82607; 82728; 82746; 83540; 83550; 83605; 83615; 83735; 83880; 84100; 84443; 84484; 84550; 85007; 85025; 85044; 85610; 85730; 86140; 86850; 86900; 86901; 86920; 87040; 87070; 87081; 87086; 87181; 87324; 93005; 93306; 93970; 94002; 94003; 94150; 94664; 96361; 96365; 99291; J7030; J8499; U0002